=== PATIENT | female | born 1945 | race Caucasian/White ===

== ENCOUNTER → 2017-05-19 | Outpatient (CLI) | payer OTHER, BC ==
[~2017-05-19] MED LIST: AMX500 PO; BCTROWC TOP; ESTR0.5T5 PO; FEXO1TAB49 PO; FLNIN/ NAE; GLCSC750600 PO; IBUP-103 PO; LEVO25TA5 PO; LOSA1TAB38 PO; MELO15TA4 PO; MULT-506 PO; POLYSOL4 OP; SIMV20TA2 PO; SOLI5TAB2
--- NOTE | 2017-05-19 15:18 | MAMMOGRAPHY REPORT ---
BILATERAL DIGITAL SCREENING MAMMOGRAM WITH CAD: 05/19/2017 CLINICAL HISTORY: Routine screening. Patient reported right breast pain during this appointment. TECHNIQUE: Bilateral CC and MLO views were obtained. Current study was also evaluated with a Compute r Aided Detection (CAD) system. COMPARISON: Comparison is made to exams dated: 05/16/2016 mammogram, 05/15/2015 mammogram, 11/23/2014 ma mmogram, 05/19/2014 mammogram, 05/10/2014 mammogram, and 05/07/2013 mammogram - [facility]. BREAST COMPOSITION: There are scattered areas of fibroglandular density in both breasts. FINDINGS: There is an 11 mm focal asymmetry in the anterior subareolar right breast, for which addit ional spot compression tomosynthesis views and possibly ultrasound are recommended. An 11 mm asymmet ry is seen in the lateral anterior left breast on the CC view, also warranting additional spot compre ssion tomosynthesis views and possibly ultrasound. There are mild vascular calcifications in the breasts. A stable intramammary lymph node in the right upper outer quadrant. No other suspicious mass, architectural distortion or cluster of microcalcifi cations is seen. IMPRESSION: ACR BI-RADS CATEGORY 0: INCOMPLETE EVALUATION: NEED ADDITIONAL IMAGING EVALUATION The 11 mm focal asymmetry in the anterior subareolar right breast, and asymmetry in the lateral anter ior left breast need additional imaging evaluation. At the time of diagnostic workup, further workup can also be performed for the reported right breast pain, reported to our glass technologist d uring this appointment. The patient will be called to schedule an appointment. Approximately 10% of breast cancers are not detected with mammography. A negative mammographic report should not delay biopsy if a clinically suggestive mass is present. Aurora Torre M.D. ay/:05/19/2017 13:41:04 Statistical Methods Professor: Norma CORNELL(Eva)(Shari)([id number]), [facility] letter sent: Addl Imaging 0 BI-RADS Code: ACR BI-RADS Category 0: Incomplete Evaluation: Need Additional Imaging Evaluation
== END | disposition home or self-care (01) ==
LOC: C.MAMM 09:01
PROVIDERS: ATTEND Obstetrics & Gynecology
DX: Z12.31 Encounter for screening mammogram for malignant neoplasm of breast (principal); N64.89 Other specified disorders of breast; N64.4 Mastodynia

== ENCOUNTER → 2017-05-27 | Outpatient (CLI) | payer OTHER, BC ==
--- NOTE | 2017-05-27 15:39 | MAMMOGRAPHY REPORT ---
BILATERAL DIGITAL DIAGNOSTIC MAMMOGRAM TOMOSYNTHESIS AND TARGETED BILATERAL ULTRASOUND: 05/27/2017 CLINICAL HISTORY: 72-year-old woman called back from screening mammography for bilateral breast venancio s. During the screening mammogram she also reported right breast pain. She has a history of prior r ight breast cyst aspirations and pain. TECHNIQUE: Spot compression CC and MLO 2-D digital and tomosynthesis images of each breast were perf ormed. COMPARISON: Comparison is made to exams dated: 05/19/2017 mammogram, 05/16/2016 mammogram, 05/15/2015 ma mmogram, 11/23/2014 ultrasound, 11/23/2014 mammogram, and 09/09/2014 aspiration - [facility]. BREAST COMPOSITION: There are scattered areas of fibroglandular density in both breasts. FINDINGS: Spot compression views including tomosynthesis images of the right breast demonstrate persi stence of an 11 x 11 x 10 mm mass in the 1:00 anterior breast. No associated architectural distortio n or clustered microcalcification. This is increasingly prominent comparing to all available prior m ammograms. No other suspicious mass, focal area of architectural distortion or suspicious microcalci fications are seen in the visualized right breast. There is persistence of a lobulated and circumscribed 6 x 9 x 11 mm mass in the upper outer anterior left breast. No associated architectural distortion or cluster microcalcification. No other suspici ous mass or suspicious calcifications are seen in the visualized left breast. Further evaluation wit h ultrasound was performed. Targeted ultrasound was performed in the retroareolar and slightly medial right breast, and upper out er quadrant of the left breast. While scanning the right breast 1:00 axis, the patient reported pain in that area. In the 1:00 breast, periareolar region, there is a benign anechoic simple cyst measur ing 8.9 x 9.0 x 10.7 mm. This is the same location of a previous painful cyst which was aspirated in 2013, and correlates with the circumscribed mammographic mass. This most likely represents reaccumu lation of that cyst. In the 1:00 periareolar left breast, there is a microcyst cluster, measuring 7. 2 x 4.4 x 11.3 mm, which correlates well in size, shape and location as the mammographic mass. This is also benign. IMPRESSION: ACR BI-RADS CATEGORY 2: BENIGN, TARGETED ULTRASOUND ACR BI-RADS CATEGORY 2: BENIGN 1. An 11 mm circumscribed mass in the 1:00 anterior right breast seen mammographically correlates wi th a benign anechoic simple cyst on ultrasound. This is the same location as a previous previously a spirated cyst in 2013, and most likely represents reaccumulation. This also represents the area of t he patient's pain, which she pointed out during the ultrasound, and has also been present back to 201 4. 2. An 11 mm lobulated and circumscribed mass in the 1:00 anterior left breast correlates with a song gn microcyst cluster. 3. Overall, the bilateral findings represent benign fibrocystic changes and the area of the patient' s pain is related to a right breast cyst. Continued clinical monitoring is recommended. Also recomm end return to annual screening mammography schedule. Approximately 10% of breast cancers are not detected with mammography. A negative mammographic report should not delay biopsy if a clinically suggestive mass is present. Aurora Torre M.D. ay/:05/27/2017 14:30:41 Pilot Control Operator: Nakia CORNELL(Eva)(Shari), [facility] letter sent: Normal 1/2 BI-RADS Code: ACR BI-RADS Category 2: Benign Ultrasound BI-RADS: ACR BI-RADS Category 2: Benign
== END | disposition home or self-care (01) ==
LOC: C.MAMM 13:08
PROVIDERS: ATTEND Obstetrics & Gynecology
DX: N60.01 Solitary cyst of right breast (principal); N60.11 Diffuse cystic mastopathy of right breast; N60.12 Diffuse cystic mastopathy of left breast; N64.4 Mastodynia

== ENCOUNTER → 2017-07-24 | Outpatient (CLI) | payer OTHER, BC ==
[2017-07-24 15:56] LABS: BASO % 0.5 %; BASO ABS # 0.04 K/uL (0-0.2); COMPLETE YES; EOS % 1.8 %; HEMATOCRIT 36.4 % (37-47); IG% 0.4 %; LYMPH % 13.3 %; LYMPH ABS # 1.12 K/uL (1.2-3.4); MEAN CELL VOLUME 92.4 fL (80-100); MEAN CORPUSCULAR HGB CONC 33.5 g/dl (32-36); MEAN PLATELET VOLUME 9.5 fL (7.4-10.4); MONO % 12.7 %; NEUT % 71.3 %; PLATELET COUNT 345 K/uL (130-400); RED BLOOD COUNT 3.94 M/uL (4.2-5.4); WHITE BLOOD COUNT 8.43 K/uL (4.8-10.8)
[2017-07-24 15:57] LABS: ALT/SGPT 28 U/L (12-78); AST/SGOT 22 U/L (15-37)
[2017-07-24 16:00] LABS: ALKALINE PHOSPHATASE 69 U/L (45-117)
== END | disposition home or self-care (01) ==
LOC: C.LAB1850 14:55
PROVIDERS: ATTEND Internal Medicine Rheumatology
DX: M19.041 Primary osteoarthritis, right hand (principal); M19.042 Primary osteoarthritis, left hand; M79.605 Pain in left leg

== ENCOUNTER → 2018-01-21 | Outpatient (CLI) | payer OTHER, BC ==
[~2018-01-21] MED LIST changes: +MELO-84 PO; -MELO15TA4 PO
[2018-01-21 16:46] LABS: BASO % 0.9 %; BASO ABS # 0.07 K/uL (0-0.2); EOS % 2.5 %; HEMATOCRIT 39.8 % (37-47); HEMOGLOBIN 13.3 g/dL (12.0-16.0); IG# 0.02 K/uL (0.00-0.02); LYMPH % 18.5 %; LYMPH ABS # 1.49 K/uL (1.2-3.4); MEAN CELL VOLUME 92.3 fL (80-100); MEAN CORPUSCULAR HEMOGLOBIN 30.9 pg (25-34); MEAN CORPUSCULAR HGB CONC 33.4 g/dl (32-36); MEAN PLATELET VOLUME 9.8 fL (7.4-10.4); MONO % 9.8 %; MONO ABS # 0.79 K/uL (0.11-0.59); NEUT % 68.1 %; NEUT ABS # 5.49 K/uL (1.4-6.5); PLATELET COUNT 349 K/uL (130-400); RED CELL DISTRIBUTION WIDTH CV 13.4 % (11.5-14.5); RED CELL DISTRIBUTION WIDTH SD 45.4 fL (36.4-46.3); WHITE BLOOD COUNT 8.06 K/uL (4.8-10.8)
[2018-01-21 17:07] LABS: CREATININE 1.26 mg/dl (0.60-1.20)
[2018-01-21 17:11] LABS: ALBUMIN 3.7 gm/dl (3.4-5.0); ALKALINE PHOSPHATASE 70 U/L (45-117); ALT/SGPT 32 U/L (12-78); AST/SGOT 20 U/L (15-37); TOTAL PROTEIN 7.2 gm/dl (6.4-8.2)
== END | disposition home or self-care (01) ==
LOC: C.LAB1850 15:07
PROVIDERS: ATTEND Internal Medicine Rheumatology
DX: M19.041 Primary osteoarthritis, right hand (principal); M19.042 Primary osteoarthritis, left hand; M79.605 Pain in left leg

== ENCOUNTER 2021-05-28 07:39 | Observation (INO) ==
--- NOTE | 2021-05-18 16:02 | Anesthesiology Consultation ---
Date of Service May 18, 2021 Assessment & Plan (1) Encounter for pre-operative examination: Chart Review Chart Review: Acceptable Risk for Surgery (pending preop Covid testing results ) and Patient NOT seen in Pre Admission Testing Per nursing assessment 05/18/2021, patient denies any recent travel. No known Covid infection in the past 90 days. Patient is vaccinated for Covid. No known Covid positive contacts or Covid related symptoms. Preop Covid testing scheduled 05/24/[address]= will await results. Last seen by cardiology 12/08/2020 = seen for routine follow-up. Seen approximately 6 weeks ago as new patient for evaluation of dizzinessundergone PT which improved symptoms. As part of cardiac work-up did undergo an echocardiogram and 7-day ZIO monitor. ZIO monitor revealed several episodes of second-degree type I heart block with pause of 2.4 secondsepisodes were during presumed sleep and no symptoms reported. Echocardiogram did show mild aortic stenosis and ascending aorta enlargement. We will repeat echocardiogram in 1 year. No recurrent dizzinesshas asymptomatic second-degree Mobitz 1not currently on beta-adolfo therapy and would avoid all AV yunior blocking agents. F/u in one year History Surgery Operation Date: 05/28/21 07:00 Proposed Procedures p Right Breast Lumpectomy with Localization using Cheryl Director Validation Marker or Needle with Right [place] Lymph Node Biopsy - Anderson Helton MD, FACS Height/Weight Height: 5 ft 5 in Weight: 98.883 kg Allergies Allergy/AdvReac Type Severity Reaction Status Date / Time cephalexin Allergy Intermediate HIVES Verified 05/18/21 14:14 erythromycin base Allergy Mild HIVES Verified 05/18/21 14:14 olive oil Allergy Mild TINGLING Verified 05/18/21 14:14 IN LIPS Sulfa (Sulfonamide Allergy Unknown HIVES Verified 05/18/21 14:14 Antibiotics) Medications Home Medications Medication Instructions Recorded Confirmed Last Taken antiarthritic combination no.2 900 1,800 mg PO QAM 11/01/19 05/18/21 01/06/20 09:00 mg tablet cetirizine 10 mg disintegrating 10 mg PO QAM tab 11/01/19 05/18/21 01/06/20 09:00 tablet ibuprofen 400 mg tablet 400 mg PO Q6H PRN 11/01/19 05/18/21 12/31/19 ipratropium bromide 21 mcg (0.03 2 sprays INTNAS BID 11/01/19 05/18/21 01/07/20 06:00 %) nasal spray multivitamin 1 tab PO QAM 11/01/19 05/18/21 01/06/20 09:00 simvastatin 20 mg tablet 20 mg PO QPM 11/01/19 05/18/21 01/06/20 21:00 acetaminophen [Tylenol] 325 mg PO QID PRN 11/29/19 05/18/21 01/06/20 18:30 turmeric 400 mg PO QAM 11/29/19 05/18/21 12/28/19 clindamycin HCl 300 mg capsule 600 mg PO ONCE 1 Days #2 cap 10/17/20 05/18/21 Unknown betamethasone, augmented 0.05 % 1 applic TOPICAL BID PRN 04/18/21 05/18/21 Unknown topical cream cholecalciferol (vitamin D3) 50 50 mcg PO QAM 04/18/21 05/18/21 Unknown mcg (2,000 unit) capsule fluticasone propionate 50 2 spray INTRANASAL BID 04/18/21 05/18/21 Unknown mcg/actuation nasal spray,suspension hydrocortisone 2.5 % topical cream 1 applic TOPICAL TID PRN 04/18/21 05/18/21 Unknown levothyroxine 75 mcg capsule 75 mcg PO QAM 04/18/21 05/18/21 Unknown polyethylene glycol 1 %-polyvinyl 1 drp OPHTHALMIC (EYE) QAM 04/18/21 05/18/21 Unknown alcohol 1 % eye drops gabapentin 100 mg PO BID 05/18/21 05/18/21 Unknown losartan 100 mg PO QAM 05/18/21 05/18/21 Unknown meclizine 25 mg PO TID PRN 05/18/21 05/18/21 Unknown ondansetron 4 mg PO Q6H PRN 05/18/21 05/18/21 Unknown tramadol 50 mg PO BID PRN 05/18/21 05/18/21 Unknown Past Medical History Medical History (Updated 05/18/21 @ 15:59 by Kenia Juan PA-C) Borderline glaucoma Breast cancer, right Dx 03/2021 CKD (chronic kidney disease), stage III 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 DDD (degenerative disc disease) Hyperlipidemia Hypertension Hypertensive left ventricular hypertrophy, without heart failure Hypothyroidism Mild aortic stenosis Per 11/15/20 ECHO= ARLENE =1.2-1.4 cm; AV mean gradient = 7.3 mmHg; AV max velocity 1.927 m/s Follows with [facility] cardio Obesity Overactive bladder Prediabetes Sciatica Vertigo Past Family History Family History Sister Diabetes Breast cancer Mother Breast cancer Other No family history of adverse response to anesthesia Past Surgical History Surgical History History of breast biopsy History of cataract surgery History of colonoscopy History of hysterectomy History of reverse total replacement of right shoulder joint (~12/2019) Hx of abdominal surgery MESENTERIC CYST REMOVED Hx of colonoscopy S/P knee replacement RIGHT AND LEFT Social History Smoking Status: Never smoker Do You Dip or Chew Tobacco: No Hx Alcohol Use: No Hx Substance Use: No substance use type: does not use Lab Results Anesthesia Preop Results Results Anesthesia Widget: WBC 6.53 K/uL (4.8-10.8) 04/26/21 Hgb 13.5 g/dL (12.0-16.0) 04/26/21 Hct 41.5 % (37-47) 04/26/21 Plt 291 K/uL (130-400) 04/26/21 Na 131 mmol/L (136-145) L 04/26/21 K 4.1 mmol/L (3.5-5.1) 04/26/21 Cl 95 mmol/L (98-107) L 04/26/21 CO2 30 mmol/L (21-32) 04/26/21 BUN 13 mg/dl (7-18) 04/26/21 Creat 0.86 mg/dl (0.6-1.2) 04/26/21 Glucose Level 107 mg/dl (70-99) H 04/26/21 Lab Comments: Chronic hyponatremia since at least 2018 Testing Electrocardiogram Date: 04/26/21 Sinus rhythm with first-degree AV block at 81 bpm. Otherwise normal EKG per cardio. Echocardiogram Date: 11/15/20 EF: 59% LV Function: normal RWMA: + none Other Findings: + LVH (Mild/concentric) and + diastolic dysfunction (Grade 1) Normal LV chamber size with sigmoid appearing septum. Aortic valve has 3 leafletsmildly calcified. AV opening mildly reduced. Mild aortic valve stenosis is present. (ARLENE =1.2-1.4 cm; AV mean gradient = 7.3 mmHg; AV max velocity 1.927 m/s) Proximal ascending thoracic aorta is mildly enlarged. Aortic root is normal size. Other Testing Chest CT 05/16/2021 = stable bilateral pulmonary nodules. Noncalcific nodules are favored to represent noncalcified granulomata given the presence of calcified granulomata and granulomatous nodes. Consider follow up CT in six months to assess for 1 year stability. Stable ectasia of the ascending aorta4.1 cm. Stable hypodense nodule in the medial aspect of the right lobe and isthmus of the thyroid.
[~2021-05-28 07:39] MED LIST changes: +ACETAMINOPHEN 1000 MG/100 ML IV IV ONE; -AMX500 PO; -BCTROWC TOP; +CLINDAMYCIN 900 MG in DEXTROSE 5% 50 ML IV SCH; -ESTR0.5T5 PO; -FEXO1TAB49 PO; -FLNIN/ NAE; -GLCSC750600 PO; -IBUP-103 PO; -LEVO25TA5 PO; -LOSA1TAB38 PO; +LR 15ML/HR IV SCH; -MELO-84 PO; -MULT-506 PO; -POLYSOL4 OP; -SIMV20TA2 PO; -SOLI5TAB2
[2021-05-28] MEDS ORDERED: MIDAZOLAM HCL 1 MG/ML 2ML VIAL ONE (08:20)
[2021-05-28] MEDS ORDERED: fentaNYL citrate 100 MCG/2 ML VIAL ONE ×2 (08:21)
[2021-05-28] MEDS ORDERED: ONDANSETRON INJ 2 MG/ML 2 ML VIAL ONE (08:41)
[2021-05-28] MEDS ORDERED: LIDOCAINE 2% 2 ML VIAL/AMP(20MG/ML) INFIL ONE (08:41)
[2021-05-28] MEDS ORDERED: PROPOFOL IV EMULSION 10 MG/ML 20 ML VIAL IV ONE (08:41)
[2021-05-28] MEDS ORDERED: DEXAMETHASONE SOD INJ 4 MG/ML VIAL ONE (08:41)
[2021-05-28] MEDS ORDERED: ISOSULFAN BLUE 10 MG/ML VIAL 5 ML ONE (09:00)
[2021-05-28] MEDS ORDERED: BUPIVACAINE 0.5 % 5 MG/1 ML MPF 30ML VIAL ONE (09:00)
--- NOTE | 2021-05-28 09:16 | Nuclear Medicine Report ---
LYMPHOSCINTIGRAPHY CLINICAL HISTORY: Right breast cancer. PROCEDURE: Using standard sterile technique, 4 intradermal and one deep injection of 0.49 mCi of Lymp hoseek was placed in the right breast. The patient tolerated the procedure well. There were no immedi ate complications. The patient was subsequently transported to the surgical suite. No imaging was obt ained at the referring physician's request. IMPRESSION: Injection of 0.49 mCi of Lymphoseek in the right breast. ACT 112: Negative or not required by law. Electronically signed by: Bishop Zhang M.D. 05/28/2021 9:14 AM
[2021-05-28] MEDS ORDERED: METHYLENE BLUE 0.5% 10 ML VIAL ONE (09:32)
[2021-05-28] MEDS ORDERED: SCOPOLAMINE 1 MG TDSY TD ONE (09:40)
[2021-05-28] MEDS ORDERED: LABETALOL HCL IV 5 MG/ML 20ML IV PRN (09:56)
[2021-05-28] MEDS ORDERED: ATROPINE SULFATE 0.1 MG/ML 10ML SYR IV PRN (09:56)
[2021-05-28] MEDS ORDERED: ONDANSETRON INJ 2 MG/ML 2 ML VIAL IV PRN ×2 (09:56→12:50)
[2021-05-28] MEDS ORDERED: PHENYLEPHRINE 100MCG/ML 5ML SYR ONE (10:19)
[2021-05-28] MEDS ORDERED: PHENYLEPHRINE HCL 10 MG/ML VIAL ONE (10:40)
--- NOTE | 2021-05-28 11:15 | Post Operative Brief Note ---
PG Immediate Post Op with CF Date of Surgery May 28, 2021 Pre & Post Diagnosis Operation Date: 05/28/21 09:45 Pre-Op Diagnosis: Right Breast Cancer Post-Op Diagnosis: Right Breast Cancer I identified the patient and participated in the time-out.: Yes Procedure Operation Date: 05/28/21 09:45 Actual Procedures p Right Breast Lumpectomy with Localization using Cheryl Geology Technician Marker with Right [place] Lymph Node Biopsy(Right) - Anderson Helton MD, FACS Surgeon Anderson Helton MD, FACS Watershed Program Manager nurses Estimated Blood Loss 5 Findings Consistent with Post-Op Diagnosis Specimens Specimen Description: Frozen Section #1--[place] Lymph Node #1--sent to pathology at 1037 A. Additional Right Axillary Lymph Node B. Right Breast Tissue--(Long silk=lateral, short silk=medial, plain suture=superior, methylene blue=deep/posterior)--Fresh C. Addtional Superior Tissue Right Breast--(long silk=lateral, short silk=me dial, methylene blue=new margin) D. Additional Inferior Tissue Right Breast--(long silk=lateral, short silk=medial, methylene blue=new margin)
[2021-05-28] MEDS ORDERED: ACETAMINOPHEN 1,000 MG/100 ML VIAL IV ONE (11:16)
[2021-05-28] MEDS: fentaNYL citrate 100 MCG/2 ML VIAL IV PRN ×4 (11:33→11:48)
--- NOTE | 2021-05-28 12:04 | Anesthesiology Progress Note ---
Date of Service May 28, 2021 Anesthesia Post Procedure Vital Signs Vital Signs: Temp Pulse Pulse Resp BP Pulse Ox 05/28/21 12:00 36.5 C 81 13 128/83 96 05/28/21 11:50 82 13 137/86 91 05/28/21 11:40 61 22 137/84 97 05/28/21 11:30 73 19 159/96 H 99 05/28/21 11:20 36.7 C 85 19 160/95 H 100 05/28/21 09:12 36.9 C 90 20 167/107 H 94 Pain Intensity Right Breast: Pain Intensity: 6 Transfer of Care Handoff Completed per policy Notes Mental Status: alert / awake / arousable Patient Amnestic to Procedure: Yes Nausea / Vomiting: adequately controlled Pain: adequately controlled Airway Patency, RR, SpO2: stable & adequate BP & HR: stable & adequate Hydration State: stable & adequate Anesthetic Complications: no major complications apparent
[2021-05-28] MEDS ORDERED: SODIUM CHLORIDE 0.9% 500 ML IV SCH (12:50)
[2021-05-28] MEDS ORDERED: PROMETHAZINE HCL 12.5 MG in SODIUM CHLORIDE 0.9% 50 ML IV PRN (12:50)
[2021-05-28] MEDS ORDERED: IBUPROFEN 600 MG TAB PO PRN (12:50)
[2021-05-28] MEDS ORDERED: MoRPHine SULFATE 2 MG/ML CARP IV PRN (12:50)
[2021-05-28] MEDS: traMADol HCL 50 MG TABLET PO PRN (13:50)
--- NOTE | 2021-05-28 15:00 | Mammography Report ---
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 She presents at time of lumpectomy and preoperative localization with Cheryl bull riveter wa s performed 05/17/2021. COMPARISON: Comparison is made to exams dated: 05/09/2021 breast MRI, 05/17/2021 localization, stereotactic biopsy, 03/29/2021 mammogram, 03/16/2021 ultrasound, and 03/16/2021 mammogram - [facility]. FINDINGS: A specimen radiograph was obtained of the right breast lumpectomy specimen. The specimen d emonstrates the Cheryl bull riveter reflector, hourglass-shaped biopsy marker, vascular calcification, density near the metallic markers and faint amorphous and punctate calcifications within the specimen, tez tible with successful preoperative localization and subsequent surgical excision. Final surgical pat hology is pending. IMPRESSION: SPECIMEN Right breast lumpectomy specimen radiograph, as above. Aurora Torre M.D. ay/:05/28/2021 13:40:12 Solvent Mixer: OR Technologist, [facility]
[2021-05-28] MEDS: LOSARTAN POTASSIUM 50 MG TAB PO SCH (16:40)
[2021-05-28] MEDS: ACETAMINOPHEN 325 MG TAB PO PRN ×2 (16:42→20:48)
--- NOTE | 2021-05-28 17:08 | Operative Report (OR) ---
DATE OF PROCEDURE: 05/28/2021 NAME OF OPERATION: Right lumpectomy with sentinel lymph node biopsy. PREOPERATIVE DIAGNOSIS: Right breast cancer. POSTOPERATIVE DIAGNOSIS: Right breast cancer. SURGEON: Anderson Helton MD ANESTHESIA: General. DESCRIPTION OF PROCEDURE: The patient was brought in the operating room and placed on the operating table in supine position. Her right arm was extended down on an arm board. Her right axilla and jacob ast prepped and draped in the usual fashion. She had a STEF marker in place and underwent injection for sentinel lymph node biopsy. A 0.5% plain Marcaine was used to anesthetize axilla and breast. Inc ision was made in the axilla, carried dissection down very deep identifying the sentinel lymph node. This was sent for frozen section and found to be negative. It appeared I had 3 additional lymph nod es, which were sent permanent. At this point, the lumpectomy was performed. An elliptical incision made in the right lateral breast using the STEF probe. We excised the tissue. It was right breast t issue. Skin anterior, long silk lateral, short silk medial, plain suture superior, methylene blue de ep/posterior. It appeared on the Faxitron, which was sent to Dr. Torre that I was somewhat close to the superior area. Additional superior and inferior tissue was taken and marked with long silk la teral, short silk medial, methylene blue new margin. Dr. Torre felt we had the tissue, we needed. Clips were placed to level of the suspicious, deep tissue in both sites was closed using 2-0 plain s uture. Right axilla closed using 4-0 nylon for the skin. Right breast and skin closed using subcuti cular 4-0 Monocryl with Steri-Strips. Dressings applied and the patient transferred to recovery room in stable condition. Job ID: [id number]
[2021-05-28] MEDS: CLINDAMYCIN 600 MG in DEXTROSE 5% 50 ML IV SCH (18:28)
[2021-05-28] MEDS ORDERED: hydrALAZINE HCL 20 MG/ML VIAL IV PRN (20:42)
[2021-05-28] MEDS: GABAPENTIN 300 MG CAP PO SCH (20:47)
[2021-05-28] MEDS ORDERED: SIMVASTATIN 20 MG TAB PO SCH (21:00)
--- NOTE | 2021-05-28 21:52 | Consultation Report ---
DATE OF CONSULTATION: 05/28/2021. CHIEF COMPLAINT: Status post right lumpectomy with sentinel lymph node biopsy, tolerated the procedure okay. Pain is under control. Ambulated in the hallway. Ate her dinner okay. Denies any nausea. No headache, no blurred visions, no earache, no runny nose, no sore throat, no cough, no fevers, no chest pain, no shortness of breath, no abdominal pain. Moved her bowels in the morning. When she came in, she did not take her losartan, so blood pressure was going high in the postop, but she got a blood pressure medicine and blood pressure is coming down. Currently resting comfortably. ALLERGIES: CEPHALEXIN, SULFA ANTIBIOTICS, ERYTHROMYCIN BASE, OLIVE OIL PAST MEDICAL HISTORY: As mentioned above. PAST SURGICAL HISTORY: Bilateral knee replacement, colonoscopy, reconstruction of right shoulder joint, removal of mesenteric lesion. MEDICATIONS: The patient is on Tylenol 325 mg p.o. q.i.d. p.r.n., antiarthritic combination 800 mg p.o. a.m., betamethasone augmented 0.05% topical cream b.i.d. p.r.n., cetirizine 10 mg p.o. daily a.m., vitamin D 2000 units p.o. a.m., clindamycin 600 mg p.o. once, Flonase 2 sprays intranasally b.i.d., gabapentin 300 mg p.o. b.i.d., hydrocortisone 2.5% topical cream t.i.d. p.r.n., ibuprofen 400 mg p.o. q.6 hours p.r.n., ipratropium bromide 0.03% nasal spray 2 sprays intranasally b.i.d., levothyroxine 75 mcg p.o. daily, losartan 100 mg p.o. a.m., meclizine 25 mg p.o. t.i.d. p.r.n., multivitamin 1 tablet p.o. a.m., Zofran 4 mg p.o. q.6 hours p.r.n., polyethylene glycol 1% ophthalmic drop a.m., simvastatin 20 mg p.o. q.a.m., tramadol 50 mg p.o. b.i.d. p.r.n., turmeric 400 mg p.o. a.m. FAMILY HISTORY: Significant for daughter has allergies; father has tachybrady syndrome; mother has bradycardia; father has thyroid disorder; mother has thyroid disorder. SOCIAL HISTORY: . No smoking, no alcohol, no drug use. REVIEW OF SYSTEMS: As per HPI. Rest of the review of systems is negative. PHYSICAL EXAMINATION: GENERAL: The patient is obese, not in acute distress. VITAL SIGNS: Temperature 37.1, pulse 106, respiratory rate 18, blood pressure 150/79, oxygen 91% on room air. HEENT: Head is atraumatic. NECK: No neck masses seen. CARDIOVASCULAR: S1 and S2 heard. Regular rate and rhythm. No murmur, no gallop. RESPIRATORY SYSTEM: Normal AP diameter. No accessory muscle use. No wheezes, no crackles. ABDOMEN: Soft, bowel sounds present, nontender, no distention. CENTRAL NERVOUS SYSTEM: Nonfocal. BREASTS: Status post right breast lumpectomy with sentinel lymph node biopsy. Dressing is dry. EXTREMITIES: No edema, no erythema. LABORATORIES: Unremarkable. ASSESSMENT AND PLAN: 1. This is a 76-year-old female admitted for right breast lumpectomy with sentinel lymph node biopsy. She tolerated the procedure okay. Recent Pathology showed ductal carcinoma in situ with one sentinel lymph node biopsy had invasive ductal carcinoma grade II. Follow up with surgery. 2. History of hypertension: Continue losartan. We will monitor the blood pressure. hydralazine p.r.n. 3. History of vertigo: Continue her meclizine p.r.n. 4. Hypothyroidism: Continue Synthroid. 5. Chronic kidney disease stage III: We will follow the laboratories. 6. Prediabetic: Follow hemoglobin A1c. Follow blood sugars. Diabetic diet. 7. Hyperlipidemia: On statin. 8. Deep venous thrombosis prophylaxis and disposition as per general surgery. Job ID: [id number] [facility]
[2021-05-29] MEDS: CLINDAMYCIN 600 MG in DEXTROSE 5% 50 ML IV SCH ×2 (02:40→10:20)
[2021-05-29] MEDS ORDERED: LEVOTHYROXINE SODIUM 75 MCG TABLET PO SCH (06:30)
[2021-05-29 07:50] LABS: Estimated Average Glucose 114 mg/dl; Hemoglobin A1C 5.6 % (4.5-5.6)
[2021-05-29] MEDS: traMADol HCL 50 MG TABLET PO PRN (07:56)
[2021-05-29] MEDS: LOSARTAN POTASSIUM 50 MG TAB PO SCH (08:02)
[2021-05-29] MEDS: GABAPENTIN 300 MG CAP PO SCH (08:02)
--- NOTE | 2021-05-29 11:15 | Discharge Summary (DS) ---
DATE OF DISCHARGE: 05/29/2021. PRINCIPAL DIAGNOSIS: Right breast cancer. PROCEDURES: The patient underwent right breast lumpectomy with sentinel lymph node biopsy. HISTORY OF PRESENT ILLNESS: The patient is a 76-year-old female with biopsy proven right breast canc er for definitive surgery. HOSPITAL COURSE: The patient was brought into the hospital on 05/28/2021 where she underwent right b reast lumpectomy with sentinel lymph node biopsy, which she has done quite well with, done well overn ight. [place] stable for discharge home today to be followed in the surgical clinic within 1-2 weeks. She will also follow up with oncology and radiation oncology. Job ID: [id number]
== END 2021-05-29 12:51 | disposition home health service (06) ==
LOC: 3N 07:39 → ASU 07:39 → EDSTATUS 09:45

== ENCOUNTER 2023-12-21 16:06 | Inpatient (IN) ==
--- OUTSIDE RECORDS SUMMARY | 2023-12-21 16:10 | External Medical Summary | Summary of Care ---
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* Allergies Active Allergy Reactions Criticality Noted Date Comments Adhesive Tape Rash Low 12/12/2021 Erythromycin 05/29/2001 hives Cephalexin Rash 08/19/2017 Diffuse macular papular rash Lyles Oil Edema face/lips/tongue High 07/20/2015 Sulfa Antibiotics 05/29/2001 hives Wound Dressing Adhesive 07/29/2021 documented as of this encounter (statuses as of 11/19/2023) Medications Medication Sig Dispensed Refills Start Date End Date Status CENTRUM SILVER PO TABS 1 TABLET DAILY 0 11/15/2008 Active GLUCOSAMINE CHONDR COMPLEX 500-400 MG PO CAPS 1 daily 0 Active IBUPROFEN 200 MG PO CAPS Take by mouth every 6 hours as needed . 0 Active hydrocortisone 2.5 % creamIndications:Hiv es Apply topically to affected area 3 times a day. To affected area. 30 g 1 07/20/2015 Active Polyethyl Glycol-Propyl Glycol 0.4-0.3 % Ophthalmic Solution Instill into eye as needed for Dry eyes. 0 Active AUG BETAMETHASONE DIPROPIONATE (DIPROLENE AF) 0.05 % cream Apply topically to affected area 2 times a day. To affected area. 15 g 3 09/30/2019 Active Acetaminophen ER 650 MG Oral Tablet Extended Release Take 1 Tablet by mouth every 8 hours as needed. 0 Active Clindamycin HCl 150 MG Oral Capsule (Cleocin) 0 12/01/2020 Active Vitamin D 50 MCG (2000 UT) Oral Capsule Take 2,000 Units by mouth daily. 0 Active Tamoxifen Citrate 20 MG Oral Tablet TAKE 1 TABLET BY MOUTH DAILY. TAKE WHOLE WITH WATER 0 06/08/2021 Active Vitamin E 200 UNIT Oral Tablet Take by mouth. 0 Active Vitamin B6 100 MG Oral Tablet Take by mouth. 0 Active Ipratropium [place] 0.03 % Nasal Solution (Atrovent) Administer 2 Sprays into nostril in the morning and 2 Sprays at noon and 2 Sprays before bedtime. 2 sprays each nostril twice daily, may use mid day dose if needed. 90 mL 4 12/19/2022 Active Ondansetron HCl 4 MG Oral TabletIndications:Ve rtigo Take 1 Tablet by mouth every 6 hours as needed for Nausea. 30 Tablet 0 01/17/2023 Active Meclizine HCl 25 MG Oral Tablet (Antivert)Indication s:Vertigo Take 1 Tablet by mouth 3 times a day as needed for Dizziness. 30 Tablet 1 01/17/2023 Active Fluticasone Propionate 50 MCG/ACT Nasal Suspension (Flonase) SPRAY 2 SPRAYS INTO EACH NOSTRIL EVERY DAY 48 mL 3 03/17/2023 Active Losartan Potassium 100 MG Oral Tablet (Cozaar)Indications: HTN, goal below 130/80 TAKE 1 TABLET BY MOUTH EVERY DAY 90 Tablet 3 04/17/2023 Active Triamcinolone Acetonide 0.1 % External Ointment (Aristocort) Apply topically to affected area 2 times a day. To affected area. 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 09/25/2020 Overview: Per CKD protocol Prediabetes 05/29/2020 Overview: Per Prediabetes protocol Recurrent urticaria 08/08/2017 Overview: since 2004 History of recurrent UTIs 08/08/2017 Essential hypertension with goal blood pressure less than 140/90 11/21/2016 Aortic valve sclerosis 11/21/2016 Non-rheumatic mitral regurgitation 11/21/2016 Overview: mild Hypertensive left ventricula r hypertrophy, without heart failure 11/21/2016 Dyslipidemia, goal LDL below 130 04/30/2011 Knee joint replacement status 04/26/2011 Overview: bilateral knee replacements Cataract 01/22/2010 Overview: Sees [facility] Rotator cuff syndrome 12/02/2008 Dysfunction of eustachian tube 12/02/2008 Allergic rhinitis 12/02/2008 Uterine leiomyoma documented as of this encounter (statuses as of 11/19/2023) Resolved Problems Problem Noted Date Diagnosed Date Resolved Date Hypertensive heart/kidney di sease without HF and with CKD stage III 05/05/2019 09/28/2020 Overview: Per CKD protocol Encounter for examination fo r normal comparison and control in clinical research program 01/18/2019 06/19/2020 Overview: DO NOT DELETE [facility] DETECT Study: Project # [id number], Criminal Attorney: Mehrdad Hawkins, PhD. SUMMARY: Goal: Establish test characteristics (sensitivity, specificity, PPV, NPV) of a circulating tumor DNA (ctDNA)-based test for cancer. Hypothesis: Circulating tumor DNA (ctDNA) and elevated protein biomarkers (together, the marker panel) can be detected in asymptomatic individuals with early cancer. Specific Aim 1: Determine the prevalence of a positive marker panel test in a prospective clinical cohort of 10,000 asymptomatic women ages 65 to 75 years. Specific Aim 2: Determine the sensitivity, specificity, positive predictive value (PPV) and negative predictive value (NPV) of a marker panel test to identify histologically proven cancers that develop within 5-years of the marker panel evaluation. CONTACTS: During normal business hours, contact study staff at ; after hours Criminal Attorney via the [facility] multi spindle operator . Please contact study team before resolving/deleting from patients problem list. Study phone number: [phone]. Diagnosis changed due to Research Module. Go to Snapshot for study details. Encounter for examination fo r normal comparison and control in clinical research program 01/18/2019 07/18/2022 Overview: DO NOT DELETE - [facility] DETECT Study: Project # [id number], Criminal Attorney: Scotty Addison, MS, MPH. SUMMARY: Goal: Establish test characteristics (sensitivity, specificity, PPV, NPV) of a circulating tumor DNA (ctDNA)-based test for cancer. - Hypothesis: Circulating tumor DNA (ctDNA) and elevated protein biomarkers (together, the marker panel) can be detected in asymptomatic individuals with early cancer. - Specific Aim 1: Determine the prevalence of a positive marker panel test in a prospective clinical cohort of 10,000 asymptomatic women ages 65 to 75 years. - Specific Aim 2: Determine the sensitivity, specificity, positive predictive value (PPV) and negative predictive value (NPV) of a marker panel test to identify histologically proven cancers that develop within 5-years of the marker panel evaluation. - CONTACTS: During normal business hours, contact study staff at ; after hours Criminal Attorney via the [facility] multi spindle operator . - Please contact study team before resolving/deleting from patients problem list. Study phone number: [phone]. Diagnosis changed due to Research Module. Go to Snapshot for study details. 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 documented as of this encounter (statuses as of 11/19/2023) Immunizations Name Administration Dates Next Due COVID-19 mRNA, LNP-s, No Pre serve, 2-Dose Series (Pfizer) 10/02/2021,01/31/2021,01/03/2021 COVID-19, MRNA-LNP, 23-24, P F, 50 MCG/0.5 mL, 12 YRS AND ABOVE, IM (MODERNA-Spikevax) 09/02/2023 COVID-19, mRNA, LNP-s, PF, B ooster, 100mcg/0.5mg (Moderna) 05/30/2022 Covid-19, Mrna, Lnp-s, Pf, B ivalent, 30 Mcg, IM, 12 yrs and above (Pfizer) 08/27/2022 H1N1 2009 Influenza, IM 12/20/2009 Pneumococcal Conjugate Vacc, 13 Valent (Prevnar) 11/01/2016 Pneumococcal Polysaccharide PPV23 (Pneumovax) 08/21/2015,08/19/2009 RSV Vac., Recomb, Adjuvant, PF,0.5 Ml (Arexvy) 10/15/2023 Season Influenza, Quad, PF, Adjuvanted, 65+ Yrs, IM (FLUAD) 08/02/2020 Seasonal Influenza, PF, 6 M & above, IM , (FluLaval or Fluzone) 08/21/2018 Seasonal Influenza, Quadriva lent Hd (Fluzone Hd) 09/01/2023,08/20/2022,09/01/2021 Seasonal Influenza, Quadriva lent, No Preserve, IM 08/05/2017,09/05/2016 Seasonal Influenza, Split, I IV3, With Preserve, Inj 08/21/2015,08/25/2014,08/03/2013,08/18,08/19/2009,11/15/2008,09/28/20 07,09/27/2006 Seasonal Influenza, Trivalen t, Adjuvanted, 65+ yrs 09/16/2019 TDAP (age 10 and older)(Boostrix) 03/22/2016 Varicella Zoster Vaccine (Adult) 04/20/2013 Zoster Vaccine Recombinant (Shingrix) ,05/30/2020,12/03/2019,11/1702/02/2020 documented as of this encounter Social History Tobacco Use Types Packs/Day Years Used Date Smoking Tobacco: Never Smokeless Tobacco: Never Alcohol Use Standard Drinks/Week Comments No 0 (1 standard drink = 0.6 oz pur e alcohol) PHQ-2 Answer Date Recorded PHQ Adult Total Score 0 10/14/2022 Hunger Vital Sign Answer Date Recorded Worried About Running Out of Food in the Last Ye ar Never true 11/30/2019 Ran Out of Food in the Last Year Never true 11/30/2019 Sex and Gender Information Value Date Recorded Sex Assigned at Female 11/30/2019 1:09 PM EST Gender Identity Female 11/30/2019 1:09 PM EST Sexual Orientation Straight 11/30/2019 1: 09 PM EST Job Start Date Occupation Industry Not on file Not on file Not on file documented as of this encounter Plan of Treatment Upcoming Encounters Date Type Department Care Team (Late st Contact Info) Description 11/27/2023 4:20 PM EST Office Visit Family [facility] [address] [place] [address] Dov Kohler DO [address] [place] [address] 12/18/2023 8:40 AM EST Telemedicine Endocrinology, [address] [place] [address] Princess Monterroso MD [address] [facility] [place], [place] [address] 01/20/2024 3:30 PM EST Office Visit Cardiology, [facility] [address] [facility] [place], [place] [address] Saba Zimmerman CRNP [address] [facility] [place] [address] 03/29/2024 4:00 PM EDT Office Visit Allergy/Immunology [facility] [address] [facility] [place] [address] Nas Porter MD [address] [place] [address] Scheduled Orders Name Type Priority Associated Diagnoses Orde r Schedule TSH WITH FREE T4 IF INDICATED Lab Routine 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 Expected: 11/19/2023 (Approximate), Expires: 11/19/2024 COMPREHENSIVE METABOLIC PANEL Lab Routine 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 Expected: 11/19/2023 (Approximate), Expires: 11/19/2024 Scheduled Procedures Name Priority Associated Diagnoses Date/Ti me COLONOSCOPY FLEXIBLE PROXIMA L DIAGNOSTIC Recall Special screening for malignant neoplasms, colon Health Maintenance Due Date Last Done Comments Depression Screening 10/14/2023 10/14/2022 TSH 04/17/2024 04/17/2023, 01/2022, 07/05/2022, Additional history exists GFR 04/28/2024 10/28/2023, 11/2022, 08/19/2022, Additional history exists Albumin/Creatinine Ratio 10/28/20242 023, 04/17/2023, 11/15/2021, Additional history exists CKD HGB USE SMARTSET 76361 10/28/202410/28, 10/28/2023, 04/17/2023, Additional history exists CKD PHOS USE SMARTSET 81399 10/28/202410/17, 04/17/2023, 08/19/2022, Additional history exists HbA1c 10/28/2024 10/28/2023, 06/0 11/2022, 08/19/2022, Additional history exists DTaP,Tdap,and Td Vaccines (2 - Td or Tdap) 03/22/2026 03/22/2016 DXA Scan 12/16/2029 12/16/2022, 11/19, 12/11/2020, Additional history exists Pneumococcal Vaccine: 65+ Years Completed 11/01/2016, 08/21/2015, 08/19/2009 Zoster Vaccines Completed 05/30/2020, 05/17, 12/03/2019, Additional history exists Influenza Vaccine (FLU shot) Completed 09/01/2023, 08/20/2022, 09/01/2021, Additional history exists COVID-19 Vaccine Completed 09/02/2023, 09/2022, 05/30/2022, Additional history exists GARDASIL-HPV IMMUNIZATION SERIES Aged Out No longer eligible based on patient's age to complete this topic Hepatitis B Aged Out No longer eligi ble based on patient's age to complete this topic Hepatitis C Screening Discontinued MENINGOCOCCAL (MENACTRA/MENVEO) Aged Out No longer eligible based on patient's age to complete this topic documented as of this encounter Medical Devices Not on filedocumented as of this encounter Visit Diagnoses Diagnosis 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
--- OUTSIDE RECORDS SUMMARY | 2023-12-21 16:10 | External Medical Summary | Summary of Care ---
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 SUMMARY: Goal: Establish test [...] contact study staff at ; after hours Fur Blender via the [facility] [place] hospital drosophere operator . Please contact study team before resolving/deleting from patients problem list. Study phone number: [phone]. Diagnosis changed due to Research Module. Go to Snapshot for study details. Encounter for examination fo r normal comparison and control in clinical research program 01/18/2019 07/18/2022 Overview: DO NOT DELETE - [employer] DETECT Study: Project # [id number], Fur Blender: Scotty Addison, MS, MPH. SUMMARY: Goal: Establish [...] contact study staff at ; after hours Fur Blender via the [facility] [place] hospital drosophere operator . - Please contact study team before resolving/deleting from patients problem list. Study phone number: [phone]. Diagnosis changed due to Research Module. Go to Snapshot for study details. 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 documented as of this encounter (statuses as of 12/18/2023) Immunizations Name Administration Dates Next Due COVID-19 [...] Date Recorded PHQ Adult Total Score 0 11/27/2023 Hunger Vital Sign Answer Date Recorded Worried [...] on file documented as of this encounter Patient Instructions * Patient Instructions* Princess Monterroso MD - 12/18/2023 8:38 AM EST Calcium and Vitamin D Guidelines [facility] Calcium: 1200 mg recommended for most adults each day Preferably from diet, or calcium supplements if you are not getting enough in your diet How much calcium am I getting in my diet each day? Calculate below: Question Answer Calculate Total On average, how many 8 oz glasses of low-fat or 1% milk per day? Answer x 290 On average, how many servings (1 cup, cooked) of spinach per day? Answer x 291 On average, how many servings (1 oz) of cheddar cheese per day? Answer x 204 On average, how many servings (1 cup) of low-fat yogurt per day? Answer x 415 On average, how many servings (1/2 cup) of ice cream per day? Answer x 85 On average, how many servings of calcium-fortified juices (orange juice, 1 cup) per day? Answer x 300 On average, how many servings (1/2 cup) of almonds per day? Answer x 280 Sources of Calcium Food Calcium, milligrams Milk (skim, 2% or whole), 8 oz 300 Yogurt (6 oz) 250 Culberson Juice (with calcium), 8 oz 300 Tofu with calcium (1/2 cup) 435 Cheese (1 oz) 195-335 (hard cheese = higher calcium) Cottage cheese (1/2 cup) 130 Ice cream or frozen yogurt (1/2 cup) 100 Soy milk (1 cup) 100 Beans (1/2 cup cooked) 60-80 Dark, leafy green vegatables (1/2 cup cooked) 50-135 Almonds (24 whole) 70 Culberson (1 medium) 60 Citracal may be best if you are taking a stomach acid adolfo like Zantac, Prevacid or Nexium. Chewable calcium carbonate may be best if you have trouble swallowing pills. Vitamin D: General recommendations for adults is 800-1000 IU daily. Goal for blood level of 25 hydroxy-vitamin D is 35-100. Too much Vitamin D can cause a high blood calcium level and can be dangerous documented in this encounter Progress Notes * Princess Monterroso MD - 12/18/2023 8:40 AM EST Patient location: HOME. I was in a hospital or clinic location. After connecting through [employer],patient was verified with two unique identifiers. 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 Methods to assure confidentiality were taken. Patient acknowledged consent and understanding of pr ivacy and security of the Telemedicine visit. The patient agreed to participate. 78-year-old female seen for follow-up of: Hypothyroidism Thyroid nodule-diagnosed in October 2020 Primary hyperparathyroidism, status post parathyroidectomy Osteopenia with high FRAX score Vitamin-D deficiency Hypothyroidism-taking levothyroxine 75 mcg 5 days per week, 2 tablets 2 days per week Takes it appropriately compliant, denies any complaints Thyroid nodule Found incidentally on CT scan of neck done for evaluation of dizziness in 10/2020. [place].S. head and neck in October 2020 showed 2.7 x 1.9 x 2.3 cm nodule in right lobe and isthmus junction. This nodule was biopsied in January 03, 2021, came back benign. This nodule has remained stable from ultrasound done in December 2021 and April 2023. No history of head/neck irradiation No family history of thyroid cancer Primary hyperparathyroidism-hypercalcemia, osteopenia with high FRAX score at hip 3.5:Status post parathyroidectomy in May 2022, calcium normalized postop. DEXA scan in November 2022-showed osteopenia with FRAX score hip 3.5%, major osteoporotic fracture 13% No falls or fractures Vitamin-D supplementation: 2000 IU daily Drinks 1 glass of chocolate milk daily, tries to get dietary calcium during the day She is recovering from COVID-19 infection. LABS CALCIUM - [facility] Date/Time Value Ref Range Status 10/28/2023 08:42 AM 9.4 8.4 - 10.2 mg/dL Final 04/17/2023 09:18 AM 9.4 8.4 - 10.2 mg/dL Final 08/19/2022 09:21 AM 9.2 8.4 - 10.2 mg/dL Final 11/01/2020 10:55 AM 10.3 (H) 8.4 - 10.2 mg/dL Final 10/20/2020 12:34 PM 10.7 (H) 8.4 - 10.2 mg/dL Final 05/24/2020 07:12 AM 10.2 8.4 - 10.2 mg/dL Final CALCIUM, 24 HOUR URINE - [facility] Date/Time Value Ref Range Status 09/07/2021 12:01 PM 0.31 (H) 0.05 - 0.30 g/24 hours Final 03/23/2021 11:02 AM 0.24 0.05 - 0.30 g/24 hours Final CALCIUM, 24 UR - [facility] Date/Time Value Ref Range Status 09/07/2021 12:01 PM 7.1 mg/dL Final 03/23/2021 11:02 AM 5.5 mg/dL Final CALCIUM, IONIZED - [facility] Date/Time Value Ref Range Status 11/01/2020 10:55 AM 1.27 1.13 - 1.32 mmol/L Final Comment: THIS TEST WAS DEVELOPED AND ITS PERFORMANCE CHARACTERISTICS DETERMINED BY [employer]. IT HAS NOT BEEN CLEARED OR APPROVED BY THE [employer]. PTH - [facility] Date/Time Value Ref Range Status 06/04/2022 10:35 AM 35 15 - 65 pg/mL Final 05/23/2022 10:58 AM 32 15 - 65 pg/mL Final 03/18/2022 10:06 AM 56 15 - 65 pg/mL Final 11/01/2020 10:55 AM 47 15 - 65 pg/mL Final PTH, RAPID - [facility] Date/Time Value Ref Range Status 05/23/2022 09:37 AM 96 (H) 15 - 65 pg/mL Final Comment: Gave result to Dr. Aldana at 0950. 05/23/2022 09:05 AM 130 (H) 15 - 65 pg/mL Final Comment: Gave result to OR 18 at 0917. 05/23/2022 08:53 AM 125 (H) 15 - 65 pg/mL Final Comment: Gave result to Dr. Aldana at 0904. PTH-RELATED PROTEIN (PTH-RP) Date/Time Value Ref Range Status 01/13/2021 11:17 AM SEE BELOW (A) Final Comment: TESTS RESULTS--------UNITS--REF. RANGE--- PTH-RP 11 L pg/mL This is a C-terminal PTH-RP assay. PTH-RP is useful in the differential diagnosis of hypercalcemia and levels may be elevated in patients with tumor-associated hypercalcemia. Elevated results may also be observed in patients with renal disease. This test was developed and its analytical performance characteristics have been determined by [facility]. It has not been cleared or approved by FDA. This assay has been validated pursuant to the CLIA regulations and is used for clinical purposes. Results Received 01/20/21 Reference lab accession: [id number] Test performed by [facility] [address] [place] [address] Edger Machine Helper: Parvin Nelson MD,PHD,CHEVY No components found for: "25" No results found for: "VITAMIN" IMAGING DXA Performed: 12/16/22 Lumbar spine: 0.920 gms/cm2 T-score: -1.2 Left femoral neck: 0.632 gms/cm2 T-score: -2.0 Left forearm: 0.642 gms/cm2 T-score: -0.9 Using the NOF/WHO FRAX calculator, the 10 year absolute risk for any major osteoporotic fracture is13 % and the risk for hip fracture is 3.5 %. No previous study for comparison. THYROID ULTRASOUND - 04/24/2023 1:20 pm HISTORY Thyroid nodule COMPARISON Thyroid ultrasound 12/19/2021 TECHNIQUE Real time sonographic imaging of the thyroid was performed. FINDINGS Right lobe measures 2.3 x 0.7 x 0.9 cm, isthmus measures 0.4 cm, and left lobe measures 3.0 x 0.9 x0.7 cm. Thyroid gland is small in size. There is a 2.6 x 0.8 x 2.2 cm predominantly solid hypoechoic nodule in the right aspect of the thyroid isthmus (previously 2.7 x 1.9 x 2.3 cm on 11/01/20). There has been intervening parathyroid surgery. IMPRESSION IMPRESSION A predominantly solid hypoechoic nodule in the right isthmus is smaller in AP dimension from prior exam. This nodule was reportedly previously biopsied with benign pathology in 2020. Impression 78-year-old female with history of primary hypothyroidism, thyroid nodule (biopsy proven benign in December 2020), remained stable in size on most recent ultrasound done in April 2023, primary hyperparathyroidism- status post parathyroidectomy, normal calcium postop, osteopenia with FRAX risk 3.5% at hip from DEXA scan in November 2022 and vitamin-D deficiency. Continue levothyroxine 75 mcg 5 days per week, 2 tablets 2 days per week Continue vitamin-D 2000 units per day Increase dietary calcium intake, I have included handout in her after visit summary U.S. head and neck in April 2024 (this will be fourth the ultrasound since 10/2020) DEXA scan in November 2024 Return to clinic after April 2024 U.S. head and neck and blood work to check TSH and vitamin-D in April documented in this encounter Plan of Treatment Upcoming Encounters Date Type Department Care Team (Late st Contact Info) Description 01/20/2024 3:30 PM EST Office Visit Cardiology, [facility] [address] [place] [id number] Saba Zimmerman CRNP [address] [place] [id number] 03/29/2024 4:00 PM EDT Office Visit Allergy/Immunology [facility] [address] [facility] [place] [address] Nas Porter MD [address] [facility] [place] [address] Scheduled Orders Name Type Priority Associated Diagnoses Orde r Schedule US HEAD AND NECK Medical Imaging Routine 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 Thyroid nodule Expected: 05/06/2024 (Approximate), Expires: 01/15/2025 TSH WITH FREE T4 IF INDICATED Lab Routine 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 Thyroid nodule Expected: 05/06/2024 (Approximate), Expires: 12/18/2024 25-HYDROXY VITAMIN D Lab Routine Vitamin D deficiency Expected: 05/06/2024 (Approximate), Expires: 12/18/2024 Scheduled Procedures Name Priority Associated Diagnoses Date/Ti me COLONOSCOPY FLEXIBLE PROXIMA L DIAGNOSTIC Recall Special screening for malignant neoplasms, colon Health Maintenance Due Date Last Done Comments TSH 04/17/2024 04/17/2023, 01/2022, 07/05/2022, Additional history exists GFR 04/28/2024 10/28/2023, 11/2022, 08/19/2022, Additional history exists Albumin/Creatinine Ratio 10/28/20242 023, 04/17/2023, 11/15/2021, Additional history exists CKD HGB USE SMARTSET 98797 10/28/202410/28, 10/28/2023, 04/17/2023, Additional history exists CKD PHOS USE SMARTSET 24722 10/28/202410/17, 04/17/2023, 08/19/2022, Additional history exists HbA1c 10/28/2024 10/28/2023, 06/0 11/2022, 08/19/2022, Additional history exists Depression Screening 11/27/2024 11/27/2023 DTaP,Tdap,and Td Vaccines (2 - Td or [...] Diagnosis 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
--- OUTSIDE RECORDS SUMMARY | 2023-12-21 16:10 | External Medical Summary | Summary of Care ---
Author Name Unknown Organization [facility] Address [address] [place] [address] Phone [phone] Care Team Providers Care Lawn Service Manager Name Role Phone Dov Kohler Primary Care Provider Reason for Visit * Reason Comments Urinary Tract Infection Symptoms Pt here for complaints of a UTI since night. Encounter Details Date Type Department Care Team (Latest Contact Info) Description 12/06/2023 12:30 PM EST Convenient Care Visit [facility] [address] [place] [address] Devika Arriaga PA-C [address] [id number] UTI symptoms*; Urinary tract infection with hematuria, site unspecified Allergies Active Allergy Reactions Criticality Noted Date Comments Adhesive Tape Rash Low 12/12/2021 Erythromycin 05/29/2001 hives Cephalexin Rash 08/19/2017 Diffuse macular papular rash Coffey Oil Edema face/lips/tongue High 07/20/2015 Sulfa Antibiotics 05/29/2001 hives Wound Dressing Adhesive 07/29/2021 documented as of this encounter (statuses as of 12/06/2023) Medications Medication Sig Dispensed Refills Start Date End Date Status CENTRUM SILVER PO TABS 1 TABLET DAILY 0 11/15/2008 Active GLUCOSAMINE CHONDR COMPLEX 500-400 MG PO CAPS 1 daily 0 Active IBUPROFEN 200 MG PO CAPS Take by mouth every 6 hours as needed . 0 Active hydrocortisone 2.5 % creamIndications:Hi ves Apply topically to affected area 3 times [...] Tablet Take by mouth. 0 Active Ipratropium [place] 0.03 % Nasal Solution (Atrovent) Administer 2 Sprays into nostril in the morning and 2 Sprays at noon and 2 Sprays before bedtime. 2 sprays each nostril twice daily, may use mid day dose if needed. 90 mL 4 12/19/2022 Active Ondansetron HCl 4 MG Oral TabletIndications:V ertigo Take 1 Tablet by mouth every 6 hours as needed for Nausea. 30 Tablet 0 01/17/2023 Active Meclizine HCl 25 MG Oral Tablet (Antivert)Indicatio ns:Vertigo Take 1 Tablet by mouth 3 times a day as needed for Dizziness. 30 Tablet 1 01/17/2023 Active Fluticasone Propionate 50 MCG/ACT Nasal Suspension (Flonase) SPRAY 2 SPRAYS INTO EACH NOSTRIL EVERY DAY 48 mL 3 03/17/2023 Active Losartan Potassium 100 MG Oral Tablet (Cozaar)Indications :HTN, goal below 130/80 TAKE 1 TABLET BY MOUTH EVERY DAY 90 Tablet 3 04/17/2023 Active Triamcinolone Acetonide 0.1 % External Ointment (Aristocort) Apply topically to affected area 2 times a day. To affected area. 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 90 Tablet 3 10/20/2023 Active Nitrofurantoin Monohyd Macro 100 MG Oral Capsule (Macrobid)Indicatio ns:Urinary tract infection with hematuria, site unspecified Take 1 Capsule by mouth in the morning and 1 Capsule before bedtime. Do all this for 7 days. With food until gone. 14 Capsule 0 12/06/2023 4 Active Ciprofloxacin HCl 250 MG Oral Tablet (Cipro)Indications: Urinary tract infection with hematuria, site unspecified Take 1 Tablet by mouth in the morning and 1 Tablet before bedtime. Do all this for 3 days. 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 SUMMARY: Goal: Establish test [...] contact study staff at ; after hours Adult Manager via the [facility] assistant operator . Please contact study team before resolving/deleting from patients problem list. Study phone number: [phone]. Diagnosis changed due to Research Module. Go to Snapshot for study details. Encounter for examination fo r normal comparison and control in clinical research program 01/18/2019 07/18/2022 Overview: DO NOT DELETE - [facility]OPER Study: Project # [id number], Adult Manager: Scotty Addison, MS, MPH. SUMMARY: Goal: Establish [...] contact study staff at ; after hours Adult Manager via the [facility] assistant operator . - Please contact study team before resolving/deleting from patients problem list. Study phone number: [phone]. Diagnosis changed due to Research Module. Go to Snapshot for study details. 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 documented as of this encounter (statuses as of 12/06/2023) Immunizations Name Administration Dates Next Due COVID-19 mRNA, LNP-s, No Pre serve, 2-Dose Series (Sensitive Object) 10/02/2021,01/31/2021,01/03/2021 COVID-19, MRNA-LNP, 23-24, P F, 49 [...] Date Smoking Tobacco: Never Smokeless Tobacco: Never Tobacco Cessation:Counseling Given: Not Answered Alcohol Use Standard Drinks/Week Comments No 0 [...] on file documented as of this encounter Last Filed Vital Signs Vital Sign Reading Time Taken Comments Blood Pressure 136/68 12/06/2023 12:03 PM EST Pulse 106 12/06/2023 12:03 PM EST Temperature 36.9 C (98.5 F) 12/06/2023 12:[address] Respiratory Rate 16 12/06/2023 12:03 PM EST Oxygen Saturation 96% 12/06/2023 12:03 PM EST Inhaled Oxygen Concentration - - Weight 97.7 kg (215 lb 6.4 oz) 12/06/2023 12:03 PM EST Height 165.1 cm (5' 5") 12/06/2023 12:03 PM EST Body Mass Index 35.84 12/06/2023 12:03 PM EST documented in this encounter Progress Notes * Devika Arriaga PA-C - 12/06/2023 12:26 PM EST Subjective: Dysuria for a 1.5 days, feels like when she has had in the past HPI: Pt is a 78 year old YO female who presents c/o: Dysuria: yes Hematuria: yes Increased Frequency: yes Urgency: yes Flank Pain: no Abdominal Pain: yes Vaginal D/C: no Fever: no Malaise: no UTI PMHX: yes Renal Stone PMHX: no Gential Lesion/Rash: no Review of Systems Constitutional: Negative for fatigue and fever. Respiratory: Negative. Cardiovascular: Negative. Gastrointestinal: Negative. 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 Clindamycin HCl 150 MG Oral Capsule (Cleocin) Vitamin D 50 MCG (2000 UT) Oral Capsule Take 2,000 Units by mouth daily. Tamoxifen Citrate 20 MG Oral Tablet TAKE 1 TABLET BY MOUTH DAILY. TAKE WHOLE WITH WATER Vitamin E 200 UNIT Oral Tablet Take by mouth. Vitamin B6 100 MG Oral Tablet Take by mouth. Ipratropium [place] 0.03 % Nasal Solution (Atrovent) Administer 2 Sprays into nostril in the morning and 2 Sprays at noon and 2 Sprays before bedtime. 2 sprays each nostril twice daily, may use mid day dose if needed. 90 mL 4 Ondansetron HCl 4 MG Oral Tablet Take 1 Tablet by mouth every 6 hours as needed for Nausea. 30 Tablet 0 Meclizine HCl 25 MG Oral Tablet (Antivert) Take 1 Tablet by mouth 3 times a day as needed for Dizziness. 30 Tablet 1 Fluticasone Propionate 50 MCG/ACT Nasal Suspension (Flonase) SPRAY 2 SPRAYS INTO EACH NOSTRIL EVERYDAY 48 mL 3 Losartan Potassium 100 MG Oral Tablet (Cozaar) TAKE 1 TABLET BY MOUTH EVERY DAY 90 Tablet 3 Cetirizine HCl 10 MG Oral Tablet (ZyrTEC) TAKE ONE TABLET DAILY EACH MORNING 90 Tablet 3 Simvastatin 20 MG Oral Tablet (Zocor) TAKE 1 TABLET BY MOUTH EVERYDAY AT BEDTIME 90 Tablet 1 Levothyroxine Sodium 75 MCG Oral Tablet (Levoxyl) TAKE 1 TABLET 5 DAYS A WEEK AND 2 TABLETS 2 DAYS A WEEK 120 Tablet 1 amLODIPine Besylate 5 MG Oral Tablet (Norvasc) Take 1 Tablet by mouth in the morning. 90 Tablet 3 Ciprofloxacin HCl 250 MG Oral Tablet (Cipro) Take 1 Tablet by mouth in the morning and 1 Tablet before bedtime. Do all this for 3 days. 6 Tablet 0 IBUPROFEN 200 MG PO CAPS Take by mouth every 6 hours as needed . hydrocortisone 2.5 % cream Apply topically to affected area 3 times a day. To affected area. 30 g 1 Polyethyl Glycol-Propyl Glycol 0.4-0.3 % Ophthalmic Solution Instill into eye as needed for Dry eyes. AUG BETAMETHASONE DIPROPIONATE (DIPROLENE AF) 0.05 % cream Apply topically to affected area 2 timesa day. To affected area. 15 g 3 Triamcinolone Acetonide 0.1 % External Ointment (Aristocort) Apply topically to affected area 2 times a day. To affected area. 30 g 0 No current facility-administered medications for this visit. Past Medical History: Diagnosis Date Acute serous otitis media chronic Allergic rhinitis Aortic valve sclerosis 11/21/2016 Cataract 01/22/2010 Sees [facility] Dermatophytosis of scalp or cotter chronic Dysfunction of eustachian tube Dyslipidemia, goal LDL below 130 04/30/2011 Essential hypertension with goal blood pressure less than 140/90 11/21/2016 History of right shoulder replacement 01/07/2020 Hypertensive left ventricular hypertrophy, without heart failure 11/21/2016 Hypothyroidism 04/30/2011 Knee joint replacement status 04/26/2011 bilateral knee replacements Non-rheumatic mitral regurgitation 11/21/2016 mild 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 Rotator cuff syndrome Uterine leiomyoma Past Surgical History: Procedure Laterality Date ARTHROPLASTY KNEE TOTAL 04/26/2011 bilateral knee replacement COLONOSCOPY, DIAGNOSTIC (RECTUM) 2000 COLONOSCOPY, DIAGNOSTIC (RECTUM) 09/04/2015 tortuous colon, diverticulosis, repeat 10 yrs/COLONOSCOPY FLEXIBLE PROXIMAL DIAGNOSTIC performed byVera Garrison DO at ENDOSCOPY [facility] EXPLORE PARATHYROID GLANDS Right 05/23/2022 PARATHYROIDECTOMY performed by Tatianna Aldana MD at [facility] INJECT DX/THER SUBSTANCE INTERLAMINAR LUMBAR/SACRAL W IMAGE GUIDE 11/15/2021 INJECTION SPINE LUMBAR OR SACRAL performed by Blair Navarro DO at OR [facility] INJECT DX/THER SUBSTANCE INTERLAMINAR LUMBAR/SACRAL W IMAGE GUIDE 03/27/2022 INJECTION SPINE LUMBAR OR SACRAL performed by Blair Navarro DO at OR [facility] RECONSTRUCT/REPLACE SHOULDER JOINT Right REMOVAL OF MESENTERY LESION 06/04/01 mesenteric cyst removed Review of patient's allergies indicates: Allergen Reactions Coffey Oil Edema face/lips/tongue Erythromycin hives Keflex [Cephalexin] Rash Diffuse macular papular rash Sulfa Antibiotics hives Wound Dressing Adhesive Adhesive Tape Rash Objective: BP 136/68 | Pulse 106 | Temp 36.9 C (98.5 F) | Resp 16 | Ht 1.651 m (5' 5") | Wt 97.7 kg (215 lb 6.4 oz) | SpO2 96% | BMI 35.84 kg/m | BSA 2.12 m Physical Exam Constitutional: Appearance: Normal appearance. She is obese. She is not ill-appearing. Cardiovascular: Rate and Rhythm: Normal rate and regular rhythm. Heart sounds: Normal heart sounds. Pulmonary: Effort: Pulmonary effort is normal. Breath sounds: Normal breath sounds. Abdominal: General: There is no distension. Tenderness: There is abdominal tenderness (mild). There is no right CVA tenderness, left CVA tenderness or guarding. Neurological: Mental Status: She is alert. ASSESSMENT/PLAN: UTI symptoms (Primary) - URINALYSIS, POINT OF CARE (ENTER/EDIT) - CULTURE, URINE, QUANTITATIVE; Future; Expected date: 12/06/2023 - CULTURE, URINE, QUANTITATIVE Urinary tract infection with hematuria, site unspecified - CULTURE, URINE, QUANTITATIVE - Ciprofloxacin HCl 250 MG Oral Tablet (Cipro); Take 1 Tablet by mouth in the morning and 1 Tablet before bedtime. Do all this for 3 days. [facility] h/o provided on UTI Devika Arriaga PA-C documented in this encounter Miscellaneous Notes * Pt Handout (on AVS) - Devika Arriaga PA-C - 12/06/2023 1:54 PM EST Images from the original note were not included. [id number] Urinary Tract Infections in Women Urinary tract infections (UTIs) are most often caused by bacteria. These bacteria enter the urinarytract. The bacteria may come from inside the body. Or they may travel from the skin outside the rectum or vagina into the urethra. Female anatomy makes it easy for bacteria from the bowel to enter a person?s urinary tract. This is the most common source of UTIs. This means women develop UTIs more often than men. Pain in or around the urinary tract is a common UTI symptom. But the only way to know for sure if you have a UTI is for the healthcare provider to test your pee. The two tests that may be done are the urinalysis and urine culture. These tests tell your provider if you have a UTI and what type of bacteria is causing it. Gender words are used here to talk about anatomy and health risk. Please use this information in a way that works best for you and your provider as you talk about your care. Types of UTIs Cystitis. A bladder infection (cystitis) is the most common UTI in women. You may have an urgentor frequent need to pee. You may also have pain, burning when you pee, and bloody urine. Urethritis. This is an inflamed urethra. This is the tube that carries urine from the bladder tooutside the body. You may have lower stomach or back pain. You may also have an urgent or frequent need to pee. Pyelonephritis. This is a kidney infection. It can be serious and damage your kidneys if not treated. You may need to stay in the hospital in severe cases. You may have a fever and lower back pain. Medicines to treat a UTI Most UTIs are treated with antibiotics. These kill the bacteria. The length of time you need to take them depends on the type of infection. It may be as short as 3 days. You may need a low-dose antibiotic for several months if you have repeated UTIs. Take antibiotics exactly as directed. Don?t stoptaking them until all of the medicine is gone, even if you feel better. The infection may not go away fully and return if you stop taking the antibiotic too soon. You may also develop a resistance tothe antibiotic. This can make it much harder to treat. Lifestyle changes to treat and prevent UTIs The lifestyle changes below will help get rid of your UTI. They may also help prevent future UTIs. Drink plenty of fluids. This includes water, juice, or other caffeine-free drinks. Fluids help flush bacteria out of your body. Empty your bladder. Always empty your bladder when you feel the urge to pee. And always pee before going to sleep. Urine that stays in your bladder can lead to infection. Try to pee before and after sex as well. Practice good personal hygiene. Wipe yourself from front to back after using the toilet. This helps keep bacteria from getting into the urethra. Wear cotton underwear. Don't wear synthetic or tight-fitting underwear that can trap moisture. Change out of wet bathing suits and workout clothing quickly. Take showers. Showers are better than baths for preventing UTIs. Use condoms during sex. These help prevent UTIs caused by sexually transmitted bacteria. Also don't use spermicides during sex. These can increase the risk for UTIs. Choose other forms of control instead. A low dose of a preventive antibiotic may be used for women who tend to get UTIs after sex. Be sure to discuss this choice with your healthcare provider. Follow up with your healthcare provider as directed. They may test to make sure the infection has cleared. If needed, more treatment may be started. Last Reviewed Date: 06/17/[id number] [employer] All rights reserved. This information is not intended as a substitute for professional medical care. Always follow your healthcare professional's instructions. documented in this encounter Plan of Treatment Upcoming Encounters Date Type Department Care Team (Late st Contact Info) Description 12/18/2023 8:40 AM EST Telemedicine Endocrinology, [place] [address] [place] [address] Princess Monterroso MD [address] [place] [address] 01/20/2024 3:30 PM EST Office Visit Cardiology, [facility] [address] [facility] [place] [address] Saba Zimmerman CRNP [address] [facility] [place] [address] 03/29/2024 4:00 PM EDT Office Visit Allergy/Immunology [facility] [address] [place] [address] [place] [address] Nas Porter MD [address] [place] [address] Pending Results Name Type Priority Associated Diagnoses Date /Time CULTURE, URINE, QUANTITATIVE Lab STAT UTI symptoms Urinary tract infection with hematuria, site unspecified 12/06/2023 12:13 PM EST Scheduled Orders Name Type Priority Associated Diagnoses Orde r Schedule CULTURE, URINE, QUANTITATIVE Lab STAT UTI symptoms Expected: 12/06/2023, Expires: 12/06/2024 Scheduled Procedures Name Priority Associated Diagnoses Date/Ti me COLONOSCOPY FLEXIBLE PROXIMA L DIAGNOSTIC Recall Special screening for malignant neoplasms, colon Health Maintenance Due Date Last Done Comments TSH 04/17/2024 04/17/2023, 01/2022, 07/05/2022, Additional history exists GFR 04/28/2024 10/28/2023, 11/2022, 08/19/2022, Additional history exists Albumin/Creatinine Ratio 10/28/2024 023, 04/17/2023, 11/15/2021, Additional history exists CKD HGB USE SMARTSET 63734 10/28/202410/28, 10/28/2023, 04/17/2023, Additional history exists CKD PHOS USE SMARTSET 58425 10/28/202410/17, 04/17/2023, 08/19/2022, Additional history exists HbA1c 10/28/2024 10/28/2023, 11/2022, 08/19/2022, Additional history exists Depression Screening [...] Not on filedocumented as of this encounter Procedures Procedure Name Priority Date/Time Associated Diagnosis Comments URINALYSIS, POINT OF CARE (ENTER/EDIT) Routine 12/06/2023 UTI symptoms documented in this encounter Results * (ABNORMAL) URINALYSIS, POINT OF CARE (ENTER/EDIT) (12/06/2023) Color, Urine Other Yellow or Light Yellow Clarity, Urine Cloudy Clear Glucose, Urine Negative Negative mg/dL Bilirubin, Urine Negative Negative Ketone, Urine Negative Negative mg/dL Specific [place], Urine 1.015 1.003 - 1.030 Blood, Urine Moderate Negative pH, Urine 6.0 5.0 - 7.5 units Protein, Urine Negative Negative mg/dL Urobilinogen, Urine 0.2 0.2 - 1.0 mg/dL Nitrite, Urine Positive Negative Esterase, Urine Moderate Negative Urine 12/06/2023 Devika Arriaga PA-C LAB POINT OF C ARE TEST ENTER/EDIT ORDERABLES documented in this encounter Visit Diagnoses Diagnosis UTI symptoms- Primary Other symptoms involving urinary system Urinary tract infection with hematuria, site unspecified documented in this encounter Care Teams Lawn Service Manager Relationship Specialty Start Date End Date Dov Kohler DO [address] [place] [address] PCP - General Family Medicine 11/30/19 documented as of this encounter
--- OUTSIDE RECORDS SUMMARY | 2023-12-21 16:10 | External Medical Summary | Summary of Care ---
Author Name Unknown Organization [facility] Address [address] [place] [address] Phone [phone] Care Team Providers Care Performance Test Consultant Name Role Phone Dov Kohler Primary Care Provider Reason for Visit * Reason Comments Urinary Tract Infection Symptoms Pt here for complaints of a UTI since night. Encounter Details Date Type Department Care Team (Latest Contact Info) Description 12/06/2023 12:30 PM EST Convenient Care Visit [facility] [address] [place] [address] Devika Arriaga PA-C [address] [id number] UTI symptoms*; Urinary tract infection with hematuria, site unspecified Allergies Active Allergy Reactions Criticality Noted Date Comments Adhesive Tape Rash Low 12/12/2021 Erythromycin 05/29/2001 hives Cephalexin Rash 08/19/2017 Diffuse macular papular rash [place] Oil Edema face/lips/tongue High 07/20/2015 Sulfa Antibiotics [...] Tablet Take by mouth. 0 Active Ipratropium [place] 0.03 % Nasal Solution (Atrovent) Administer 2 [...] 01/18/2019 06/19/2020 Overview: DO NOT DELETE [facility] DETECT Study: Project # [id number], Platen Drier Operator: Mehrdad Hawkins, PhD. SUMMARY: Goal: Establish test [...] contact study staff at ; after hours Platen Drier Operator via the [facility] beveling and edging machine operator . Please contact study team before resolving/deleting from patients problem list. Study phone number: [phone]. Diagnosis changed due to Research Module. Go to Snapshot for study details. Encounter for examination fo r normal comparison and control in clinical research program 01/18/2019 07/18/2022 Overview: DO NOT DELETE - Mario COOPER Study: Project # [id number], Platen Drier Operator: Scotty Addison, MS, MPH. SUMMARY: Goal: Establish [...] contact study staff at ; after hours Platen Drier Operator via the [facility] beveling and edging machine operator . - Please contact study team before resolving/deleting from patients problem list. Study phone number: [phone]. Diagnosis changed due to Research Module. Go to Snapshot for study details. 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 Ipratropium [place] 0.03 % Nasal Solution (Atrovent) Administer 2 [...] DIAGNOSTIC performed byVera Garrison DO at ENDOSCOPY [facility] EXPLORE PARATHYROID GLANDS Right 05/23/2022 PARATHYROIDECTOMY performed by Tatianna Aldana MD at OR [facility] INJECT DX/THER SUBSTANCE INTERLAMINAR LUMBAR/SACRAL W IMAGE GUIDE 11/15/2021 INJECTION SPINE LUMBAR OR SACRAL performed by Blair Navarro DO at OR [facility] INJECT DX/THER SUBSTANCE INTERLAMINAR LUMBAR/SACRAL W IMAGE GUIDE 03/27/2022 INJECTION SPINE LUMBAR OR SACRAL performed by Blair Navarro DO at OR [facility] RECONSTRUCT/REPLACE SHOULDER JOINT Right REMOVAL OF MESENTERY LESION 06/04/01 mesenteric cyst removed Review of patient's allergies indicates: Allergen Reactions [place] Oil Edema face/lips/tongue Erythromycin hives Keflex [Cephalexin] [...] bedtime. Do all this for 3 days. [facility] h/o provided on UTI Devika Arriaga PA-C documented in this encounter Miscellaneous Notes * Pt Handout (on AVS) - Devika Arriaga PA-C - 12/06/2023 1:54 PM EST Images from the original note were not included. [id number] Urinary Tract Infections in Women Urinary tract [...] treatment may be started. Last Reviewed Date: 06/17/202319990204-6876 [employer]. All rights reserved. This information is not intended as a substitute for professional medical care. Always follow your healthcare professional's instructions. documented in this encounter Plan of Treatment Upcoming Encounters Date Type Department Care Team (Late st Contact Info) Description 12/18/2023 8:40 AM EST Telemedicine Endocrinology, [place] [address] [place] [address] Princess Monterroso MD [address] [place] [address] 01/20/2024 3:30 PM EST Office Visit Cardiology, [facility] [address] [facility] [place] [address] Saba Zimmerman CRNP 132 [facility] [place] [address] 03/29/2024 4:00 PM EDT Office Visit Allergy/Immunology [facility] [address] [place] [address] [place] [address] Nas Porter MD [address] [place] [address] Scheduled Orders Name Type Priority Associated Diagnoses Orde r Schedule CULTURE, URINE, QUANTITATIVE Lab STAT UTI symptoms Expected: 12/06/2023, Expires: 12/06/2024 Scheduled Procedures Name Priority Associated Diagnoses Date/Ti me COLONOSCOPY FLEXIBLE PROXIMA L DIAGNOSTIC Recall Special screening for malignant neoplasms, colon Health Maintenance Due Date Last Done Comments TSH 04/17/2024 04/17/2023, 01/2022, 07/05/2022, Additional history exists GFR 04/28/2024 10/28/2023, 0 11/2022, 08/19/2022, Additional history exists Albumin/Creatinine Ratio 10/28/2024 023, 04/17/2023, 11/15/2021, Additional history exists CKD HGB USE SMARTSET 03658 10/28/202410/28, 10/28/2023, 04/17/2023, Additional history exists CKD PHOS USE SMARTSET 89105 10/28/202410/17, 04/17/2023, 08/19/2022, Additional history exists HbA1c 10/28/2024 10/28/2023, 0 11/2022, 08/19/2022, Additional history exists Depression Screening [...] Negative Ketone, Urine Negative Negative mg/dL Specific [place], Urine 1.015 1.003 - 1.030 Blood, Urine [...] unspecified documented in this encounter Care Teams Performance Test Consultant Relationship Specialty Start Date End Date Dov Kohler DO [address] [place] [address] [place] [address] PCP - General Family Medicine 11/30/19 documented as of this encounter
--- OUTSIDE RECORDS SUMMARY | 2023-12-21 16:10 | External Medical Summary | Summary of Care ---
Author Name Unknown Organization [facility] Address [address] [place] [address] Phone [phone] Care Team Providers Care Brush Filler Hand Name Role Phone Dov Kohler DO Primary Care Provider Reason for Visit * Reason Comments Return Visit Pt here for 6 mo ret urn. No concerns noted. 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); Dyslipidemia, goal LDL below 130; Essential hypertension with goal blood pressure less than 140/90; Chronic kidney disease, stage 3a (HCC); Other specified hypothyroidism Allergies Active Allergy Reactions Criticality Noted Date Comments Adhesive Tape Rash Low 12/12/2021 Erythromycin 05/29/2001 hives Cephalexin Rash 08/19/2017 Diffuse macular papular rash [place] Oil Edema face/lips/tongue High 07/20/2015 Sulfa Antibiotics 05/29/2001 hives Wound Dressing Adhesive 07/29/2021 documented as of this encounter (statuses as of 11/27/2023) Medications Medication Sig Dispensed Refills Start Date End Date Status CENTRZAC SILVER PO TABS 1 TABLET DAILY 0 [...] Tablet Take by mouth. 0 Active Ipratropium [place] 0.03 % Nasal Solution (Atrovent) Administer 2 [...] for Dizziness. 30 Tablet 1 01/17/2023 Active Additional Information Patient not taking.Reported on 11/27/2023 Fluticasone Propionate 50 MCG/ACT Nasal Suspension (Flonase) [...] EACH MORNING 90 Tablet 3 09/02/2023 Active Additional Information Patient not taking.Reported on 11/27/2023 Simvastatin 20 MG Oral Tablet (Zocor)Indications:D yslipidemia, [...] as of this encounter (statuses as of 11/27/2023) Active Problems Problem Noted Date Diagnosed Date [...] as of this encounter (statuses as of 11/27/2023) Resolved Problems Problem Noted Date Diagnosed Date Resolved Date Hypertensive heart/kidney di sease without HF and with CKD stage III 05/05/2019 09/28/2020 Overview: Per CKD protocol Encounter for examination fo r normal comparison and control in clinical research program 01/18/2019 06/19/2020 Overview: DO NOT DELETE [facility] DETECT Study: Project # [id number], Vision Care Associate: eMhrdad Hawkins, PhD. SUMMARY: Goal: Establish test characteristics [...] contact study staff at ; after hours Vision Care Associate via the [facility] [place] roughing mill operator . Please contact study team before resolving/deleting from patients problem list. Study phone number: [phone]. Diagnosis changed due to Research Module. Go to Snapshot for study details. Encounter for examination fo r normal comparison and control in clinical research program 01/18/2019 07/18/2022 Overview: DO NOT DELETE - [employer] DETECT Study: Project # [id number], Vision Care Associate: Scotty Addison, MS, MPH. SUMMARY: Goal: Establish [...] contact study staff at ; after hours Vision Care Associate via the [facility] roughing mill operator . - Please contact study team before resolving/deleting from patients problem list. Study phone number: [phone]. Diagnosis changed due to Research Module. Go to Snapshot for study details. 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 documented as of this encounter (statuses as of 11/27/2023) Immunizations Name Administration Dates Next Due COVID-19 mRNA, LNP-s, No Pre serve, 2-Dose Series ([email or web address]) 10/02/2021,01/31/2021,01/03/2021 COVID-19, MRNA-LNP, 23-24, P F, 49 [...] Sign Reading Time Taken Comments Blood Pressure 128/68 11/27/2023 4:21 PM EST Pulse 101 11/27/2023 4:21 PM EST Temperature 37.3 C (99.2 F) 11/27/2023 4:21 PM ES T Respiratory Rate 16 11/27/2023 4:21 PM EST Oxygen Saturation 96% 11/27/2023 4:21 PM EST Inhaled Oxygen Concentration - - Weight 97.7 kg (215 lb 6 oz) 11/27/2023 4:21 PM EST Height - - Body Mass Index 35.84 07/25/2023 8:50 AM EDT documented in this encounter Progress Notes * Dov Kohler, - 11/27/2023 4:34 PM EST Images from the original note were not included. 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 No concerns noted.) Presents in f/u today Doing very well overall Compliant with medications Still navigating stairs well And has good ambulatory strength Physical Exam Vitals: 11/27/23 1621 Temp: 37.3 C (99.2 F) Pulse: 101 Resp: 16 SpO2: 96% BP: 128/68 Physical Exam Constitutional: Appearance: Normal appearance. HENT: Head: Normocephalic and atraumatic. Eyes: Extraocular Movements: Extraocular movements intact. Pupils: Pupils are equal, round, and reactive to light. Cardiovascular: Rate and Rhythm: Normal rate and regular rhythm. Pulmonary: Effort: Pulmonary effort is normal. Breath sounds: Normal breath sounds. Neurological: General: No focal deficit present. Mental Status: She is alert and oriented to person, place, and time. Psychiatric: Mood and Affect: Mood normal. Behavior: Behavior normal. Wrap-Up Time: Total time today was 42 minutes excluding any time spent in the performance of separately billed services. documented in this encounter Plan of Treatment Upcoming Encounters Date Type Department Care Team (Late st Contact Info) Description 12/18/2023 8:40 AM EST Telemedicine Endocrinology, [place] [address] [place] [address] Princess Monterroso MD [address] [place] [address] 01/20/2024 3:30 PM EST Office Visit Cardiology, [facility] [place] [address] Saba Zimmerman CRNP [address] [place] [address] 03/29/2024 4:00 PM EDT Office Visit Allergy/Immunology [facility] 200 [place] [address] Nas Porter MD [address] [place] [address] Scheduled Orders Name Type Priority Associated Diagnoses Orde r Schedule TSH WITH FREE T4 IF INDICATED Lab Routine Other specified hypothyroidism Expected: 11/26/2024 (Approximate), Expires: 11/26/2024 CBC WITH WBC DIFFERENTIAL Lab Routine Chronic kidney disease, stage 3a (HCC) Expected: 11/26/2024 (Approximate), Expires: 11/27/2024 COMPREHENSIVE METABOLIC PANEL Lab Routine Prediabetes Dyslipidemia, goal LDL below 130 Expected: 11/26/2024 (Approximate), Expires: 11/27/2024 HEMOGLOBIN A1C Lab Routine Prediabetes Expected: 11/26/2024 (Approximate), Expires: 11/27/2024 ALBUMIN / CREATININE RATIO, URINE Lab Routine Prediabetes Expected: 11/26/2024 (Approximate), Expires: 11/27/2024 LIPID PANEL WITH DIRECT LDL IF TG IS HIGH Lab Routine Dyslipidemia, goal LDL below 130 Expected: 11/26/2024 (Approximate), Expires: 11/27/2024 Scheduled Procedures Name Priority Associated Diagnoses Date/Ti me COLONOSCOPY FLEXIBLE PROXIMA L DIAGNOSTIC Recall Special screening for malignant neoplasms, colon Health Maintenance Due Date Last Done Comments Depression Screening 10/14/2023 11/27/2023 TSH 04/17/2024 04/17/2023, 01/2022, 07/05/2022, Additional history exists GFR 04/28/2024 10/28/2023, 0 11/2022, 08/19/2022, Additional history exists Albumin/Creatinine Ratio 10/28/2024 023, 04/17/2023, 11/15/2021, Additional history exists CKD HGB USE SMARTSET 35287 10/28/202410/28, 10/28/2023, 04/17/2023, Additional history exists CKD PHOS USE SMARTSET 14393 10/28/202410/17, 04/17/2023, 08/19/2022, Additional history exists HbA1c 10/28/2024 10/28/2023, 0 11/2022, 08/19/2022, Additional history exists DTaP,Tdap,and Td [...] as of this encounter Visit Diagnoses Diagnosis Prediabetes- Primary Other abnormal glucose Hyperparathyroidism (HCC) Hyperparathyroidism, unspecified 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
--- OUTSIDE RECORDS SUMMARY | 2023-12-21 16:10 | External Medical Summary ---
Author Name Unknown Address Unknown Organization K01:[facility] - [address] [facility] [address] Laboratory Report Ordering Provider Test Date Status ATILIO BARRERA 12/06/2023 12:13:16 Final <10,000 colonies/ml mixed no rmal le Observation Date Value Abnormality Reference (Units ) Status Bacteria identified in Specimen by Culture 12/06/2023 12:13:16 [id number]^ESCHE RICHIA COLI ESBL Abnormal Final >100,000 colonies/mL Escheri calvin coli ESBL producing organism, This patient may require isolation.
This gram negative bacilli displays in vitro resistance to multiple antibiotics. This patient may require isolation. Carbapenem use is preferred. Contact infectious disease service for further recommendations. Performing Location [facility] - [address] [facility] [address] Ordering Provider Test Date Status ATILIO BARRERA 12/06/2023 12:13:16 Final Observation Date Value Abnormality Reference (Units ) Status Ampicillin 12/06/2023 12:13:16 >=32 Resistant Final Ampicillin + Sulbactam 12/06/2023 12:13:16 4 Susceptible Final Cefazolin 12/06/2023 12:13:16 >=64 Resistant Final Cefepime susceptibility 12/06/2023 12:13:16 <=1 Susceptible Final Ceftriaxone suceptibility 12/06/2023 12:13:16 >=64 Resistant Final Ciprofloxacin 12/06/2023 12:13:16 0.5 Intermediate Final Due to serious side effects, the FDA has advised against using Ciprofloxacin to treat uncomplicated UTIs and respiratory tract infections unless there are no alternative treatment options. Gentamicin susceptibility 12/06/2023 12:13:16 <=1 Susc eptible Final Levofloxacin susceptibility 12/06/2023 12:13:16 1 In termediate Final Due to serious side effects, the FDA has advised against using Levofloxacin to treat uncomplicated UTIs and respiratory tract infections unless there are no alternative treatment options. Meropenem [Susceptibility] 12/06/2023 12:13:16 <=0.25 Bonny ceptible Final Nitrofurantoin susceptibility 12/06/2023 12:13:16 <=16 Susceptible Final Piperacillin + Tazobactamsusceptibility 12/06/2023 12:13:16 <=4 Susceptible Final TMP-SMZ susceptibility 12/06/2023 12:13:16 <=20 Suscept ible Final Performing Location [facility] [place] [address] [facility] [address] Ordering Provider Test Date Status ATILIO BARRERA 12/06/2023 12:13:16 Final Observation Date Value Abnormality Reference (Units ) Status Ertapenem [Susceptibility] 12/06/2023 12:13:16 30 Susceptible Susceptible >21 , Intermediate <=21 , Resistant <=18 Final Test: Culture, Urine, Quanti tative
Specimen Source: Urine, Clean Catch
Specimen Type: Urine
Specimen Date: 12/06/2023 12:13 PM
Result Date: 12/09/2023 2:11 PM
Result Status: Final result
Abnormal: Yes
Resulting Lab: [facility]
[address]
[facility] [address]

CULTURE

>100,000 colonies/mL Escherichia coli ESBL producing organism, This patient may
require isolation. (Abnormal)

This gram negative bacilli displays in vitro resistance to multiple
antibiotics. This patient may require isolation. Carbapenem use is
preferred. Contact infectious disease service for further recommendations.

<10,000 colonies/ml mixed normal le

SUSCEPTIBILITY

Escherichia coli ESBL Escherichia coli ESBL
producing organism, This producing organism, This
patient may require patient may require
isolation. isolation.
METHOD BARRAGAN JACKMAN MICROBROTH DILUTIONS

AMPICILLIN >=32 Resistant
AMPICILLIN/SULBACTAM 4 Susceptible
CEFAZOLIN >=64 Resistant
CEFEPIME <=1 Susceptible
CEFTRIAXONE >=64 Resistant
CIPROFLOXACIN 0.5 Intermediate [1]
ERTAPENEM 30 Susceptible
GENTAMICIN <=1 Susceptible
LEVOFLOXACIN 1 Intermediate [2]
MEROPENEM <=0.25 Susceptible
NITROFURANTOIN <=16 Susceptible
PIPERACILLIN TAZOBACTAM <=4 Susceptible
TRIMETH/SULFAMETHOXAZOLE <=20 Susceptible

[1] Due to serious side effects, the FDA has advised against using
Ciprofloxacin to treat uncomplicated UTIs and respiratory tract infections
unless there are no alternative treatment options.

[2] Due to serious side effects, the FDA has advised against using
Levofloxacin to treat uncomplicated UTIs and respiratory tract infections
unless there are no alternative treatment options.

null Performing Location LAB[facility]ATORY [facility] - [address] [facility] [address]
--- OUTSIDE RECORDS SUMMARY | 2023-12-21 16:10 | External Medical Summary | Summary of Care ---
Author Name Unknown Organization [facility] Address [address] [place] [address] Phone [phone] Care Team Providers Care Statistical Typist Name Role Phone KohlerSeanr Justin Primary Care Provider Reason for Visit * Reason Onset Date Comments Urinary Tract Infection Symptoms Pt here for complaints of UTI since 12/06/23. Pt was treated but still has complaints . Pt tested positive for covid on 12/19/23 Urinary Tract Infection Symptoms 12/21/2023 Encounter Details Date Type Department Care Team (Late st Contact Info) Description 12/21/2023 2:10 PM EST Convenient Care Visit [facility] [address] [place] [address] Wilfredo Zimmerman PA-C [address] [place] [address] UTI symptoms*; COVID-19 Allergies Active Allergy Reactions Criticality Noted Date Comments Adhesive Tape Rash Low 12/12/2021 Erythromycin 05/29/2001 hives Cephalexin Rash 08/19/2017 Diffuse macular papular rash Romeo Oil Edema face/lips/tongue High 07/20/2015 Sulfa Antibiotics 05/29/2001 hives Wound Dressing Adhesive 07/29/2021 documented as of this encounter (statuses as of 12/21/2023) Medications Medication Sig Dispensed Refills Start Date [...] Tablet Take by mouth. 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 SUMMARY: Goal: Establish test [...] contact study staff at ; after hours Survey Research Center Director via the [facility] tube bending machine operator . Please contact study team before resolving/deleting from patients problem list. Study phone number: [phone]. Diagnosis changed due to Research Module. Go to Snapshot for study details. Encounter for examination fo r normal comparison and control in clinical research program 01/18/2019 07/18/2022 Overview: DO NOT DELETE - [facility] DETECT Study: Project # [id number], Survey Research Center Director: Scotty Addison, MS, MPH. SUMMARY: Goal: Establish [...] contact study staff at ; after hours Survey Research Center Director via the [facility] hospital tube bending machine operator . - Please contact study team before resolving/deleting from patients problem list. Study phone number: [phone]. Diagnosis changed due to Research Module. Go to Snapshot for study details. 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 documented as of this encounter (statuses as of 12/21/2023) Immunizations Name Administration Dates Next Due COVID-19 mRNA, LNP-s, No Pre serve, 2-Dose Series (INCIDE) 10/02/2021,01/31/2021,01/03/2021 COVID-19, MRNA-LNP, 23-24, P F, 50 MCG/0.5 mL, 12 YRS AND ABOVE, IM (MODERNA-Spikevax) 09/02/2023 COVID-19, mRNA, LNP-s, PF, B ooster, 100mcg/0.5mg (Moderna) 05/30/2022 Covid-19, Mrna, Lnp-s, Pf, B ivalent, 30 Mcg, IM, 12 yrs and above (INCIDE) 08/27/2022 H1N1 2009 Influenza, IM 12/20/2009 Pneumococcal [...] Sign Reading Time Taken Comments Blood Pressure 136/72 12/21/2023 3:09 PM EST Pulse 95 12/21/2023 3:09 PM EST Temperature 37.2 C (98.9 F) 12/21/2023 3:09 PM ES T Respiratory Rate 16 12/21/2023 3:09 PM EST Oxygen Saturation 96% 12/21/2023 3:09 PM EST Inhaled Oxygen Concentration - - Weight 98.2 kg (216 lb 6.4 oz) 12/21/2023 3:09 P M EST Height 165.1 cm (5' 5") 12/21/2023 3:09 PM EST Body Mass Index 36.01 12/21/2023 3:09 PM EST documented in this encounter Patient Instructions * Patient Instructions* Wilfredo Zimmerman PA-C - 12/21/2023 3:41 PM EST Go to ER now. documented in this encounter Progress Notes * Wilfredo Zimmerman PA-C - 12/21/2023 3:09 PM EST CONVENIENT CARE PROGRESS NOTE Zehra Zimmerman is a 78 year old female with a MPH of hyperparathyroidism, HTN, LVH, CKD3, h/o recurrent UTIs who presents with urinary tract symptoms. Patient was accompanied by Self. HPI: She was here on 12/06/23 for dysuria, started on macrobid for a UTI. She did not respond to this, so she notes that a pharmacist put her on 5 days of cipro. She again did not respond to this. Per chart review, her urine grew ESBL producing E.coli that was intermediately susceptible to cipro. However, since she was switched to cipro, and due to her other allergies, she was continued on cipro. Per chart review, internal medicine states: "The antibiotic resistance pattern means we can't use Amoxicillin and Cipro/Levaquin may not work (intermediate). Her allergies mean we can't use Bactrim or Cefdinir. We don't really have other oral options. We can switch to Cipro but it's very possible it won't work based on culture results. Recommend pushing fluids. If patient is worse she will likely need to go to the emergency department." This was relayed to patient on 12/12. She is back here, however, instead of the ER. Severity of Symptoms: Moderate Timing (How often does it occur): constant Quality (Feels Like): dysuria, frequency, urgency, low back pain Other associated Signs and Symptoms: denies hematuria, abn vaginal discharge, cloudy, smelly urine.F/s/ch Of note, she tested positive for COVID19 on 12/19/23 and reports sinus, cough, sob Denies n/v/d/c, [facility], [place]. ROS: See HPI HISTORY: Past Medical History: Diagnosis Date Acute serous otitis media chronic Allergic rhinitis Aortic valve sclerosis 11/21/2016 Cataract 01/22/2010 Sees [facility] Dermatophytosis of scalp or cotter [...] DIAGNOSTIC performed byVera Garrison DO at ENDOSCOPY [facility] EXPLORE PARATHYROID GLANDS Right 05/23/2022 PARATHYROIDECTOMY performed by Tatianna Aldana MD at [facility] INJECT DX/THER SUBSTANCE INTERLAMINAR LUMBAR/SACRAL W IMAGE GUIDE 11/15/2021 INJECTION SPINE LUMBAR OR SACRAL performed by Blair Navarro DO at OR 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 Social History Socioeconomic History Marital status: Spouse name: Not on file Number of children: Not on file Years of education: Not on file Highest education level: Not on file Occupational History Employer: [employer] Tobacco Use Smoking status: Never Smokeless tobacco: Never Vaping Use Vaping Use: Never used Substance and Sexual Activity Alcohol use: No Drug use: No Sexual activity: Not on file Other Topics Concern Not on file Social History Narrative Not on file Social Determinants of Health Financial Resource Strain: Not on file Food Insecurity: No Food Insecurity (11/30/2019) Hunger Vital Sign Worried About Running Out of Food in the Last Year: Never true Ran Out of Food in the Last Year: Never true Transportation Needs: Not on file Physical Activity: Not on file Stress: Not on file Social Connections: Not on file Intimate Partner Violence: Not on file Housing Stability: Not on file Current Outpatient Medications Medication Sig Dispense Refill CENTRUM SILVER PO TABS 1 TABLET DAILY 0 GLUCOSAMINE CHONDR COMPLEX 500-400 MG PO CAPS 1 daily IBUPROFEN 200 MG PO CAPS Take by mouth every 6 hours as needed . Polyethyl Glycol-Propyl Glycol 0.4-0.3 % Ophthalmic Solution Instill into eye as needed for Dry eyes. Vitamin D 50 MCG (2000 UT) Oral Capsule Take 2,000 Units by mouth daily. Tamoxifen Citrate 20 MG Oral Tablet TAKE 1 TABLET BY MOUTH DAILY. TAKE WHOLE WITH WATER Vitamin E 200 UNIT Oral Tablet Take by mouth. Vitamin B6 100 MG Oral Tablet Take by mouth. Fluticasone Propionate 50 MCG/ACT Nasal Suspension (Flonase) [...] mouth in the morning. 90 Tablet 3 hydrocortisone 2.5 % cream Apply topically to affected area 3 times a day. To affected area. 30 g 1 AUG BETAMETHASONE DIPROPIONATE (DIPROLENE AF) 0.05 % cream Apply topically to affected area 2 timesa day. To affected area. 15 g 3 Acetaminophen ER 650 MG Oral Tablet Extended Release Take 1 Tablet by mouth every 8 hours as needed. Clindamycin HCl 150 MG Oral Capsule (Cleocin) Ipratropium Ulysses 0.03 % Nasal Solution (Atrovent) Administer 2 [...] as needed for Dizziness. 30 Tablet 1 Triamcinolone Acetonide 0.1 % External Ointment (Aristocort) Apply topically to affected area 2 times a day. To affected area. 30 g 0 No current facility-administered medications for this visit. Review of patient's allergies indicates: Allergen Reactions Romeo Oil Edema face/lips/tongue Erythromycin hives Keflex [Cephalexin] Rash Diffuse macular papular rash Sulfa Antibiotics hives Wound Dressing Adhesive Adhesive Tape Rash Family History Problem Relation Age of Onset Heart Disorder Mother Malcolm cardia -PPM Thyroid Disorder Mother Heart Disorder Father Tachy-malcolm /PPM Thyroid Disorder Father Allergies Daughter Other (arthritis) Brother Diabetes Sister Diabetes Sister Anemia Sister Diabetes Sister Other (alcohol abuse) Sister OBJECTIVE: BP 136/72 (BP Site: Left Arm, BP Position: Sitting, BP Cuff Size: Regular) | Pulse 95 | Temp 37.2 C (98.9 F) (Tympanic) | Resp 16 | Ht 1.651 m (5' 5") | Wt 98.2 kg (216 lb 6.4 oz) | SpO2 96% | BMI 36.01 kg/m | BSA 2.12 m Wt Readings from Last 1 Encounters: 12/21/23 98.2 kg (216 lb 6.4 oz) General appearance: awake, alert, no apparent distress Abdominal Exam: back: no CVA tenderness and abd: +suprapubic tenderness to palpation, no R/R/G, +BS Respiratory: clear to auscultation, no rhonchi, no wheezes, and no crackles Heart: regular rate, regular rhythm, no murmurs , no rubs, and no gallops Skin/Integumentary: warm, dry Results for orders placed or performed in visit on 12/21/23 URINALYSIS, POINT OF CARE (ENTER/EDIT) Result Value Ref Range Color, Urine Yellow Yellow or Light Yellow Clarity, Urine Clear Clear Glucose, Urine Negative Negative mg/dL Bilirubin, Urine Negative Negative Ketone, Urine Negative Negative mg/dL Specific [place], Urine 1.020 1.003 - 1.030 Blood, Urine Small Negative pH, Urine 6.5 5.0 - 7.5 units Protein, Urine Negative Negative mg/dL Urobilinogen, Urine 0.2 0.2 - 1.0 mg/dL Nitrite, Urine Negative Negative Esterase, Urine Negative Negative Patient Instructions Go to ER now. Assessment: UTI symptoms (Primary) - URINALYSIS, POINT OF CARE (ENTER/EDIT) - CULTURE, URINE, QUANTITATIVE COVID-19 UA shows just blood. Finished abx two days ago (cipro). With continued symptoms, resistance patterns, and allergies, likely needs IV abx. Would likely qualify for admission due to failed outpatient tx(x2). Referred to ER for further work-up and management. Report called to devulcanizer charger Follow Up: Return for Patient to follow up with Primary Care Provider as directed. | For: Patient to follow up with Primary Care Provider as directed Patient goals for plan of care were discussed Wilfredo Zimmerman PA-C [address] [address] documented in this encounter Plan of Treatment Upcoming Encounters Date Type Department Care Team (Late st Contact Info) Description 01/20/2024 3:30 PM EST Office Visit Cardiology, [facility] [address] [facility] [place] [address] Saba Zimmerman CRNP [address] [facility] [place] [address] 03/29/2024 4:00 PM EDT Office Visit All[facility] [address] [place] [address] Nas Porter MD [address] [place] [address] 05/10/2024 2:15 PM EDT Imaging Radiology [facility] 2nd Floor, [address] [place] [address] Pending Results Name Type Priority Associated Diagnoses Date /Time CULTURE, URINE, QUANTITATIVE Lab STAT UTI symptoms 12/21/2023 3:15 PM EST Scheduled Procedures Name Priority Associated Diagnoses Date/Ti me COLONOSCOPY FLEXIBLE PROXIMA L DIAGNOSTIC Recall Special screening for malignant neoplasms, colon Health Maintenance Due Date Last Done Comments TSH 04/17/2024 04/17/2023, 01/2022, 07/05/2022, Additional history exists GFR 04/28/2024 10/28/2023, 0 11/2022, 08/19/2022, Additional history exists Albumin/Creatinine Ratio 10/28/2024 023, 04/17/2023, 11/15/2021, Additional history exists CKD HGB USE SMARTSET 18060 10/28/202410/28, 10/28/2023, 04/17/2023, Additional history exists CKD PHOS USE SMARTSET 20203 10/28/202410/17, 04/17/2023, 08/19/2022, Additional history exists HbA1c [...] Comments URINALYSIS, POINT OF CARE (ENTER/EDIT) Routine 12/21/2023 UTI symptoms documented in this encounter Results * (ABNORMAL) URINALYSIS, POINT OF CARE (ENTER/EDIT) (12/21/2023) Color, Urine Yellow Yellow or Light Yellow Clarity, Urine Clear Clear Glucose, Urine Negative Negative mg/dL Bilirubin, Urine Negative Negative Ketone, Urine Negative Negative mg/dL Specific [place], Urine 1.020 1.003 - 1.030 Blood, Urine Small Negative pH, Urine 6.5 5.0 - 7.5 units Protein, Urine Negative Negative mg/dL Urobilinogen, Urine 0.2 0.2 - 1.0 mg/dL Nitrite, Urine Negative Negative Esterase, Urine Negative Negative Urine 12/21/2023 Wilfredo Zimmerman PA-C LAB POINT O F CARE TEST ENTER/EDIT ORDERABLES documented in this encounter Visit Diagnoses Diagnosis UTI symptoms- Primary Other symptoms involving urinary system COVID-19 documented in this encounter Additional Health Concerns Infection Onset Date Last Indicated Resolved Time ESBL 12/06/2023 12/06/2023 documented as of this encounter Care Teams Statistical Typist Relationship Specialty Start Date End Date Dov Kohler DO [address] [place] [address] PCP - General Family Medicine 11/30/19 documented as of this encounter
--- NOTE | 2023-12-21 16:37 | XRay Report ---
XR chest 1V not portable HISTORY: 78 years-old Female covid positive 2 days ago Q shortness of breath COMPARISON: 10/29/2023 TECHNIQUE: AP view of the chest FINDINGS: Cardiomediastinal and hilar silhouettes are within normal limits. No pneumothorax, large pleural effu cesar, overt pulmonary edema or lobar airspace consolidation. Blunting of the right lateral costophren ic angle. Right shoulder arthroplasty. Degenerative changes of the spine and left shoulder. IMPRESSION: 1. Blunting of the lateral right costophrenic angle may be secondary to atelectasis versus a trace pl eural effusion. 2. No airspace consolidation to suggest pneumonia. ACT 112: Negative or not required by law. The above report was generated using voice recognition software. It may contain grammatical, syntax o r spelling errors. Electronically signed by: Keshawn Reilly M.D. 12/21/2023 4:36 PM
--- NOTE | 2023-12-21 16:38 | Emergency Department Note ---
Impression & Plan Acute flank pain, Acute UTI (urinary tract infection), Pleural effusion on right ED Provider Note NAME: PAIGE LOPEZ AGE: 78 SEX: F : 1945 ARRIVES VIA: Walk-In INFORMANT: Patient, ED PROVIDER(S): Td Grey DO CHIEF COMPLAINT: Flank pain HPI: The patient is a 78-year-old female who presented to the emergency department for flank pain. The patient's been having problems with flank pain over the course the last few weeks. The patient has been treated with 2 different antibiotics for urinary tract infection. She has multiple antibiotic allergies so she was told to go to the emergency department for further evaluation. She notices right flank pain as well as hematuria. She denies having any chest pain or difficulty breathing. She was recently tested positive for COVID. She denies having any hemoptysis or leg swelling. ROS: See above HPI for pertinent positives & negatives. A total of 10 systems reviewed and were otherwise negative. PAST MEDICAL HISTORY: See Below PAST SURGICAL HISTORY: See Below FAMILY HISTORY: See Below SOCIAL HISTORY: See Below HOME MEDICATIONS: See Below ALLERGIES: See Below VITALS: See Below PHYSICAL EXAMINATION: GENERAL: Patient is awake alert in no acute distress patient is resting comfortably and showing no signs of anxiety EYES: The conjunctivae are clear. The pupils are round and reactive. EARS, NOSE, MOUTH AND THROAT: The nose is without any evidence of any deformity. NECK: The neck is nontender and supple. RESPIRATORY: Normal respiratory effort is noted there is no evidence of wheezing rhonchi or rales CARDIOVASCULAR: Regular rate and rhythm was noted to auscultation. Systolic murmur was suggested. GASTROINTESTINAL: The abdomen is soft. Abdomen is nontender. PELVIS: The Pelvis is stable. No tenderness to palpation is noted. BACK: Right flank pain was noted to palpation. There is no midline tenderness. MUSCULOSKELETAL/EXTREMITIES: There is no evidence of gross deformity full range of motion is noted in the hips and shoulders. SKIN: There is no obvious evidence of any rash. Pedal edema was noted bilaterally NEUROLOGIC: Patient is awake alert and oriented x3 MEDICAL DECISION MAKING: The patient is a 78-year-old female who presented to the emergency department at the request of her primary care physician for an evaluation of flank pain. The patient was treated with 2 different antibiotics for presumed urinary tract infection noted on urinalysis. Urine culture came back positive for E. coli with ESBL. The patient was advised to go to the emergency department because of this resistant bacteria. She was treated with antibiotics in emergency department. I discussed the patient's laboratory and radiographic studies with her. She was found to have signs of a pleural effusion on imaging. [facility] agreed to evaluate the patient in the emergency department for further management and disposition. Triage Nursing notes reviewed. Prior medical records reviewed Vital Signs: reviewed and remarkable for no significant abnormalities Differential diagnosis: Renal colic, UTI, appendicitis, diverticulitis, mesenteric ischemia, aortic pathology, infections, inflammatory bowel disease, PUD, biliary pathology, as well as other pathologies. ER treatment provided: See below Diagnostics interpreted by me: ECG: none Cardiac Monitoring: An order was placed for continuous cardiac monitoring. The monitor shows a rate of 89 bpm with sinus rhythm. Laboratory studies: As stated above and show below. Imaging studies: See below. Radiographic imaging was reviewed by myself Consultation(s): I discussed this case with Dr. Dallas who [facility]. 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 Helton 05/28/2021 History of hysterectomy History of breast biopsy History of cataract surgery Bilateral History of reverse total replacement of right shoulder joint (~12/2019) Hx of colonoscopy Hx of abdominal surgery MESENTERIC CYST REMOVED S/P knee replacement RIGHT AND LEFT H/O: hysterectomy Family History Sister Breast cancer Mother Breast cancer Pt believes this to be true Pacemaker Grandmother (Maternal) Breast cancer Father , 91yo Pacemaker Osteomyelitis Stroke CHF (congestive heart failure) Sister Diabetes Sister Stroke Hypertension Diabetes Sister Diabetes Daughter No problems noted. 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 How many Children do You have: 1 Feels Safe at Home: Yes Diet: regular caffeine: Yes (Diet coke 2-3 cans/day) during the past year weight has: remained stable Assistive Devices: Cane Allergies Allergies Allergy/AdvReac Type Severity Reaction Status Date / Time olive oil Allergy Severe EDEMA Verified 12/21/23 18:37 FACE/LIPS/TONGUE adhesive Allergy Intermediate skin Verified 12/21/23 18:37 irritation cephalexin Allergy Intermediate DIFFUSE Verified 12/21/23 18:37 MACULAR PAPULAR RASH erythromycin base Allergy Intermediate HIVES Verified 12/21/23 18:37 Sulfa (Sulfonamide Allergy Intermediate HIVES Verified 12/21/23 18:37 Antibiotics) Home Meds Home Medications Medication Instructions Recorded Confirmed simvastatin 20 mg tablet (Zocor) 20 mg PO QPM 11/01/19 12/21/23 betamethasone, augmented 0.05 % 1 applic topical BID PRN NEEDED 04/18/21 12/21/23 topical cream TO AFFECTED AREAS cholecalciferol (vitamin D3) 50 50 mcg PO QAM 04/18/21 12/21/23 mcg (2,000 unit) capsule fluticasone propionate 50 2 spray intranasal DAILY 04/18/21 12/21/23 mcg/actuation nasal spray,suspension hydrocortisone 2.5 % topical cream 1 applic topical TID PRN NEEDED 04/18/21 12/21/23 levothyroxine 75 mcg capsule See Rx Instructions .Route .COMPLEX 04/18/21 12/21/23 losartan 100 mg tablet 100 mg PO QAM 05/18/21 12/21/23 meclizine 25 mg tablet 25 mg PO TID PRN Vertigo 05/18/21 12/21/23 ondansetron 4 mg disintegrating 4 mg PO Q6H PRN Nausea 05/18/21 12/21/23 tablet ipratropium bromide 21 mcg (0.03 2 spray intranasal BID PRN Nasal 07/03/21 12/21/23 %) nasal spray Congestion peg 400-propylene glycol 0.4 %-0.3 1 drp ophthalmic (eye) DIRECTED 07/03/21 12/21/23 % eye gel drops (Systane Gel) PRN Dry Eyes tamoxifen 20 mg tablet 20 mg PO DAILY 12/12/21 12/21/23 acetaminophen 650 mg 650 mg PO Q8H PRN Pain 12/21/23 12/21/23 tablet,extended release amlodipine 5 mg tablet 5 mg PO QAM 12/21/23 12/21/23 cetirizine 10 mg tablet (Zyrtec) 10 mg PO DAILY 12/21/23 12/21/23 clindamycin HCl 300 mg capsule 600 mg PO DIRECTED PRN 1 HR 12/21/23 12/21/23 PRIOR TO DENTAL PROCEDURES [id number]-yuhhxlhtb-wlc C-Mn 1 cap PO DAILY 12/21/23 12/21/23 capsule (Glucosamine-Chondroitin Complex capsule) ibuprofen 200 mg tablet 200 mg PO Q6H PRN pain/fever 12/21/23 12/21/23 [id number]-cyotkqek-bzglnu tablet 1 tab PO DAILY 12/21/23 12/21/23 pyridoxine (vitamin B6) 100 mg 100 mg PO DAILY 12/21/23 12/21/23 tablet (Vitamin B-6) vitamin E acetate 134 mg (200 134 mg PO DAILY 12/21/23 12/21/23 unit) capsule Results & Data (ED) Vital Signs Vital Signs - 24 hr 12/21/23 16:10 12/21/23 17:56 12/21/23 19:28 Temperature 36.6 C Temperature Source Temporal Artery Scan Pulse Rate 87 Pulse Rate [Apical] 89 Pulse Rate [Radial] 89 Respiratory Rate 20 18 20 Respiratory Effort / Characteristics Non-Labored Non-Labored Spontaneous Respiratory Depth Normal Normal Normal Blood Pressure 125/88 Blood Pressure [Left Arm] 124/76 136/90 Blood Pressure Mean 100 Blood Pressure Mean [Left Arm] 92 105 Pulse Oximetry 98 98 96 Oxygen Delivery Method Room Air Room Air Room Air Sepsis Recent Fever Within 48 Hours No Sepsis New/Unexplained Change in Mental Status No Sepsis Action Taken by Nursing No Action Required Home Medications Current Medication List: was personally reviewed by me Laboratory Data Attestation: I reviewed the patient's lab results. 12/21/23 17:39 12/21/23 17:39 Lab Results 12/21/23 12/21/23 Range/Units 17:39 18:49 WBC 14.85 H (4.8-10.8) K/ul RBC 4.57 (4.20-5.40) M/uL Hgb 12.6 (12.0-16.0) g/dl Hct 40.1 (37.0-47.0) % MCV 87.7 (80.0-100.0) fL MCH 27.6 (25.0-34.0) pg MCHC 31.4 L (32.0-36.0) g/dL RDW Std Deviation 43.6 (36.4-46.3) fL RDW Coeff of Danette 13.6 (11.5-14.5) % Plt Count 258 (130-400) K/uL MPV 11.3 (9.4-12.4) fL Immature Gran % (Auto) 0.6 % Neut % (Auto) 63.9 % Lymph % (Auto) 14.3 % [place] % (Auto) 11.9 % Eos % (Auto) 7.5 % Baso % (Auto) 1.8 % Neut # (Auto) 9.49 H (1.40-6.50) K/uL Lymph # (Auto) 2.12 (1.20-3.40) K/uL [place] # (Auto) 1.77 H (0.11-0.59) K/uL Eos # (Auto) 1.12 H (0.00-0.50) K/uL Baso # (Auto) 0.26 H (0.00-0.20) K/uL Immature Gran # (Auto) 0.09 (0.01-0.20) K/uL Sodium 132 L (136-145) mmol/L Potassium 4.1 (3.5-5.1) mmol/L Chloride 99 (98-107) mmol/L Carbon Dioxide 25 (21-32) mmol/L Anion Gap 8 (3-11) BUN 17 (6-23) mg/dl Creatinine 0.86 (0.6-1.2) mg/dl Est Cr Clr Drug Dosing 61.0 ml/min Est GFR ( Amer) 74.5 ml/min Est GFR (Non-Af Amer) 64.3 ml/min BUN/Creatinine Ratio 19.8 (10-20) Glucose 91 (70-99(Fasting)) mg/dl Calcium 9.3 (8.6-10.3) mg/dl Total Bilirubin 0.4 (0.2-1.0) mg/dl AST 25 (13-39) U/L ALT 24 (7-52) U/L Alkaline Phosphatase 45 (34-104) U/L Total Protein 6.7 (6.0-8.3) gm/dl Albumin 3.6 (3.4-5.0) gm/dl Globulin 3.1 (2.5-4.0) gm/dl Albumin/Globulin Ratio 1.2 (0.9-2) Lipase 9 L (11-82) U/L Urine Color Yellow Urine Appearance Clear (Clear) Urine pH 6.5 (4.5-7.5) Ur Specific Stella 1.010 (1.000-1.030) Urine Protein Negative (Negative) Urine Glucose (UA) Negative (Negative) Urine Ketones Negative (Negative) Urine Blood 1+ H (Negative) Urine Nitrite Negative (Negative) Urine Bilirubin Negative (Negative) Urine Urobilinogen Negative (Negative) Ur Leukocyte Esterase Negative (Negative) Urine RBC 5-10 H (0-4) /hpf Urine WBC 0-5 (0-5) /hpf Ur Epithelial Cells 0-5 (0-5) /lpf Urine Bacteria Negative (Negative) Administered Medications Meropenem 500 mg/ Syringe 10 mls @ 2 mls/min IV Q8H [facility]; Protocol Stop: 12/23/23 19:59 Last Admin: 12/21/23 20:25 Dose: 2 mls/min Documented By: MED Discontinued Medications Sodium Chloride (Nss) 500 mls @ 999 mls/hr IV .Q31M ONE Stop: 12/21/23 17:04 Last Infusion: 12/21/23 20:20 Dose: Infused Documented By: rules examiner: 12/21/23 17:57 Dose: 999 mls/hr Documented By: MONICA Imaging Data Attestation: I personally reviewed and interpreted this imaging study as follows: My Impression: 1 view chest x-ray was obtained in the emergency department. My interpretation is small pleural effusion, final report below. CT of the abdomen and pelvis was obtained in the emergency department. My interpretation is no free air or definite signs of bowel obstruction, final report below. Radiologist's Impression: Chest X-Ray 12/21/23 16:14 XR chest 1V not portable HISTORY: 78 years-old Female covid positive 2 days ago Q shortness of breath COMPARISON: 10/29/2023 TECHNIQUE: AP view of the chest FINDINGS: Cardiomediastinal and hilar silhouettes are within normal limits. No pneumothorax, large pleural effusion, overt pulmonary edema or lobar airspace consolidation. Blunting of the right lateral costophrenic angle. Right shoulder arthroplasty. Degenerative changes of the spine and left shoulder. IMPRESSION: 1. Blunting of the lateral right costophrenic angle may be secondary to atelectasis versus a trace pleural effusion. 2. No airspace consolidation to suggest pneumonia. ACT 112: Negative or not required by law. The above report was generated using voice recognition software. It may contain grammatical, syntax or spelling errors. Electronically signed by: Keshawn Reilly M.D. 12/21/2023 4:36 PM Abdomen/Pelvis CT 12/21/23 16:[address] WITHOUT CONTRAST CT DOSE: 1312.84 mGy.cm HISTORY: Acute right-sided flank pain right flank pain TECHNIQUE: Multiaxial CT images of the abdomen and pelvis were performed without contrast. A dose lowering technique was utilized adhering to the principles of ALARA. COMPARISON STUDY: PET/CT 10/29/2023, CT abdomen and pelvis 08/25/2023 FINDINGS: Small right pleural effusion. Mild bibasilar atelectasis. No free air. Calcified granulomata of the spleen. Unremarkable pancreas and adrenal glands. Cholelithiasis without CT evidence of acute cholecystitis. Unremarkable liver. Cysts of the right kidney measure up to 2.7 cm. Mild nonspecific bilateral perinephric stranding. No hydronephrosis, renal or ureteral calculi identified. Duplicated collecting systems and ureters on the right. Pelvic floor relaxation. Hysterectomy. Atherosclerosis of the aorta. No new or progressive lymphadenopathy. No bowel obstruction or bowel wall thickening. Colonic diverticulosis. 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 No acute inflammatory changes to suggest acute appendicitis. Unremarkable soft tissues. No acute fracture or destructive bone lesion. IMPRESSION: 1. Small right pleural effusion with mild right basilar atelectasis. 2. No bowel obstruction or bowel wall thickening. 3. Cholelithiasis. 4. No renal or ureteral calculi or hydronephrosis. 5. Additional findings as above. ACT 112: Negative or not required by law. The above report was generated using voice recognition software. It may contain grammatical, syntax or spelling errors. Electronically signed by: Keshawn Reilly M.D. 12/21/2023 7:22 PM Discharge Plan Visit Data Chief Complaint: Urinary Symptoms Stated Complaint: UTI, NOT RESPONDING TO MEDS ED Provider: Td Grey Discharge Problem: Acute flank pain, Acute UTI (urinary tract infection), Pleural effusion on right Forms Stand Alone Forms: [facility] Prescriptions Prescriptions: No Action Systane Gel 0.4-0.3 % drops,gel 1 drp ophthalmic (eye) DIRECTED PRN (Reason: Dry Eyes) tamoxifen 20 mg tablet 20 mg PO DAILY simvastatin [Zocor] 20 mg tablet 20 mg PO QPM ipratropium bromide 21 mcg (0.03 %) spray,non-aerosol 2 spray INTNAS BID PRN (Reason: Nasal Congestion) levothyroxine 75 mcg capsule See Rx Instructions .ROUTE .COMPLEX Rx Instructions: TAKES 75 MCG FRIDAY THROUGH FRIDAY, THEN 150 MCG ON SAT. & SUN. fluticasone propionate 50 mcg/actuation spray,suspension 2 spray intranasal DAILY Rx Instructions: administer into each nostril cholecalciferol (vitamin D3) 50 mcg (2,000 unit) capsule 50 mcg PO QAM betamethasone, augmented 0.05 % cream 1 applic topical BID PRN (Reason: NEEDED TO AFFECTED AREAS) hydrocortisone 2.5 % cream 1 applic topical TID PRN (Reason: NEEDED) losartan 100 mg Tablet 100 mg PO QAM meclizine 25 mg Tablet 25 mg PO TID PRN (Reason: Vertigo) ondansetron 4 mg Tablet,Disintegrating 4 mg PO Q6H PRN (Reason: Nausea) cetirizine [Zyrtec] 10 mg Tablet 10 mg PO DAILY Glucosamine-Chondroitin Complx Capsule 1 cap PO DAILY amlodipine 5 mg tablet 5 mg PO QAM acetaminophen [Tylenol Extended Release] 650 mg Tablet Extended Release 650 mg PO Q8H PRN (Reason: Pain) ibuprofen 200 mg Tablet 200 mg PO Q6H PRN (Reason: pain/fever) pyridoxine (vitamin B6) [Vitamin B-6] 100 mg Tablet 100 mg PO DAILY Centrum Silver Tablet 1 tab PO DAILY vitamin E acetate 134 mg (200 unit) Capsule 134 mg PO DAILY clindamycin HCl 300 mg capsule 600 mg PO DIRECTED PRN (Reason: 1 HR PRIOR TO DENTAL PROCEDURES) Referrals Referrals: Dov Kohler DO [Primary Care Provider] -
[2023-12-21] MEDS: SODIUM CHLORIDE 0.9% 500 ML IV ONE (17:57)
[2023-12-21 17:59] LABS: Basophils # (auto) 0.26 K/uL (0.00-0.20); Basophils % (auto) 1.8 %; Eosinophils # (auto) 1.12 K/uL (0.00-0.50); Eosinophils % (auto) 7.5 %; Hematocrit (blood only) 40.1 % (37.0-47.0); Hemoglobin 12.6 g/dl (12.0-16.0); Immature Granulocytes # (auto) 0.09 K/uL (0.01-0.20); Immature Granulocytes % (auto) 0.6 %; Lymphocytes # (auto) 2.12 K/uL (1.20-3.40); Lymphocytes % (auto) 14.3 %; Mean Corpuscular Hemoglobin 27.6 pg (25.0-34.0); Mean Corpuscular Hgb Conc 31.4 g/dL (32.0-36.0); Mean Corpuscular Volume 87.7 fL (80.0-100.0); Mean Platelet Volume 11.3 fL (9.4-12.4); Monocytes # (auto) 1.77 K/uL (0.11-0.59); Monocytes % (auto) 11.9 %; Neutrophils # (auto) 9.49 K/uL (1.40-6.50); Neutrophils % (auto) 63.9 %; Platelet Count 258 K/uL (130-400); RDW Coefficient of Variation 13.6 % (11.5-14.5); RDW Standard Deviation 43.6 fL (36.4-46.3); Red Blood Count 4.57 M/uL (4.20-5.40); White Blood Count 14.85 K/ul (4.8-10.8)
[2023-12-21 18:13] LABS: Albumin Globulin Ratio 1.2 (0.9-2); Albumin Level 3.6 gm/dl (3.4-5.0); BUN Creatinine Ratio 19.8 (10-20); Bilirubin,Total 0.4 mg/dl (0.2-1.0); Calcium 9.3 mg/dl (8.6-10.3); Est GFR (African American) 74.5 ml/min; Est GFR (Non-African American) 64.3 ml/min; Globulin 3.1 gm/dl (2.5-4.0); Potassium 4.1 mmol/L (3.5-5.1); Total Protein 6.7 gm/dl (6.0-8.3)
[2023-12-21 19:01] LABS: Appearance Urine Clear (Clear); Bilirubin Urine Negative (Negative); Blood Urine 1+ (Negative); Color Urine Yellow; Glucose Urine UA Negative (Negative); Ketones Urine Negative (Negative); Leukocyte Esterase Urine Negative (Negative); Nitrite Urine Negative (Negative); Protein Urine Negative (Negative); Urobilinogen Urine Negative (Negative); pH Urine 6.5 (4.5-7.5)
[2023-12-21 19:12] LABS: Epithelial Cell Urine 0-5 /lpf (0-5)
[2023-12-21 19:14] LABS: Bacteria Urine Negative (Negative); WBC Urine 0-5 /hpf (0-5)
--- NOTE | 2023-12-21 19:24 | CT Scan Report ---
ABDOMEN AND PELVIS CT WITHOUT CONTRAST CT DOSE: 1312.84 mGy.cm HISTORY: Acute right-sided flank pain right flank pain TECHNIQUE: Multiaxial CT images of the abdomen and pelvis were performed without contrast. A dose lo wering technique was utilized adhering to the principles of ALARA. COMPARISON STUDY: PET/CT 10/29/2023, CT abdomen and pelvis 08/25/2023 FINDINGS: Small right pleural effusion. Mild bibasilar atelectasis. No free air. Calcified granulomat a of the spleen. Unremarkable pancreas and adrenal glands. Cholelithiasis without CT evidence of acut e cholecystitis. Unremarkable liver. Cysts of the right kidney measure up to 2.7 cm. Mild nonspecific bilateral perinephric stranding. No hydronephrosis, renal or ureteral calculi identified. Duplicated collecting systems and ureters on th e right. Pelvic floor relaxation. Hysterectomy. Atherosclerosis of the aorta. No new or progressive l ymphadenopathy. No bowel obstruction or bowel wall thickening. Colonic diverticulosis. 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 No acute inflammatory changes to s uggest acute appendicitis. Unremarkable soft tissues. No acute fracture or destructive bone lesion. IMPRESSION: 1. Small right pleural effusion with mild right basilar atelectasis. 2. No bowel obstruction or bowel wall thickening. 3. Cholelithiasis. 4. No renal or ureteral calculi or hydronephrosis. 5. Additional findings as above. ACT 112: Negative or not required by law. The above report was generated using voice recognition software. It may contain grammatical, syntax o r spelling errors. Electronically signed by: Keshawn Reilly M.D. 12/21/2023 7:22 PM
[2023-12-21] MEDS: MEROPENEM 500 MG in SYRINGE 0 ML IV SCH (20:25)
--- NOTE | 2023-12-21 22:17 | History & Physical Report ---
Date of Service December 21, 2023 Assessment & Plan (1) Acute UTI (urinary tract infection): Plan: 78-year-old female with past medical history significant for hyperlipidemia, prediabetes, hyperparathyroidism, allergic rhinitis, hypertension, nonrheumatic mitral regurgitation, nonrheumatic aortic valve stenosis, CKD stage III, recurrent urticaria, history of recurrent UTIs, presents with his ESBL UTI. Patient noticed frequent urination and blood in the urine on December 06, 2023, initially she was prescribed Macrobid as she was not getting better she also had 5 days of Cipro. Cultures are growing ESBL. She was seen in urgent care today still she is having low back pain and frequent urination and was sent in here for IV antibiotics. Denies fevers. She states she was home tested for COVID positive on June 09, 2024. Still has some runny nose and shortness of breath. Denies any headache. Has weakness. No body aches. Appetite is okay. No chest pain. No cough. No sore throat. No nausea. No abdominal pain. No diarrhea or constipation. Resting comfortably and hemodynamically stable. Ambulates with cane.Today in ER covid test came back negative. Acute UTI Cultures growing ESBL Failed outpatient treatment with p.o. antibiotics ER started IV meropenem which will be continued Gentle fluids Close monitor for response Prediabetes Will follow HbA1c levels CKD stage III Present creatinine 0.8 Will follow labs Hyperlipidemia On statin Hypertension On amlodipine and losartan Will monitor Hypothyroidism On Synthyroid History of breast cancer S/p right lumpectomy and radiation Currently on tamoxifen DVT prophylaxis Lovenox Disposition Medical floor Full code History of Present Illness Chief Complaint: ESBL UTI Primary Care Provider: Dov Kohler DO 78-year-old female with past medical history significant for hyperlipidemia, prediabetes, hyperparathyroidism, allergic rhinitis, hypertension, nonrheumatic mitral regurgitation, nonrheumatic aortic valve stenosis, CKD stage III, recurrent urticaria, history of recurrent UTIs, presents with his ESBL UTI. Patient noticed frequent urination and blood in the urine on December 06, 2023, initially she was prescribed Macrobid as she was not getting better she also had 5 days of Cipro. Cultures are growing ESBL. She was seen in urgent care today and still she is having low back pain and frequent urination and was sent in here for IV antibiotics. Denies fevers. She states she was home tested for COVID positive on December 10, 2023. Still has some runny nose and shortness of breath. Denies any headache. Has weakness. No body aches. Appetite is okay. No chest pain. No cough. No sore throat. No nausea. No abdominal pain. No diarrhea or constipation. Resting comfortably and hemodynamically stable. Ambulates with cane. Today in ER covid test came back negative. Past medical history. As mentioned above Past surgical history. Bilateral knee replacement. Colonoscopy. Parathyroidectomy. Injection of lumbosacral spine. Mesenteric cyst removed. Right shoulder reconstruction. Social history. . No smoking. No alcohol use. No drug use. Family history. Sister has diabetes. Father had tachybradycardia syndrome status post pacemaker. Thyroid disorder. Mother had bradycardia s/p pacemaker. Thyroid disorder. Brother has arthritis Allergies Allergy/AdvReac Type Severity Reaction Status Date / Time olive oil Allergy Severe EDEMA Verified 12/21/23 18:37 FACE/LIPS/TONGUE adhesive Allergy Intermediate skin Verified 12/21/23 18:37 irritation cephalexin Allergy Intermediate DIFFUSE Verified 12/21/23 18:37 MACULAR PAPULAR RASH erythromycin base Allergy Intermediate HIVES Verified 12/21/23 18:37 Sulfa (Sulfonamide Allergy Intermediate HIVES Verified 12/21/23 18:37 Antibiotics) latex Allergy Rash Verified 12/22/23 03:29 Home Medications Medication Instructions Recorded Confirmed Type simvastatin 20 mg tablet (Zocor) 20 mg PO QPM 11/01/19 12/21/23 History betamethasone, augmented 0.05 % 1 applic topical BID PRN NEEDED 04/18/21 12/21/23 History topical cream TO AFFECTED AREAS cholecalciferol (vitamin D3) 50 50 mcg PO QAM 04/18/21 12/21/23 History mcg (2,000 unit) capsule fluticasone propionate 50 2 spray intranasal DAILY 04/18/21 12/21/23 History mcg/actuation nasal spray,suspension hydrocortisone 2.5 % topical cream 1 applic topical TID PRN NEEDED 04/18/21 12/21/23 History levothyroxine 75 mcg capsule See Rx Instructions .Route .COMPLEX 04/18/21 12/21/23 History losartan 100 mg tablet 100 mg PO QAM 05/18/21 12/21/23 History meclizine 25 mg tablet 25 mg PO TID PRN Vertigo 05/18/21 12/21/23 History ondansetron 4 mg disintegrating 4 mg PO Q6H PRN Nausea 05/18/21 12/21/23 History tablet ipratropium bromide 21 mcg (0.03 2 spray intranasal BID PRN Nasal 07/03/21 12/21/23 History %) nasal spray Congestion peg 400-propylene glycol 0.4 %-0.3 1 drp ophthalmic (eye) DIRECTED 07/03/21 12/21/23 History % eye gel drops (Systane Gel) PRN Dry Eyes tamoxifen 20 mg tablet 20 mg PO DAILY 12/12/21 12/21/23 History acetaminophen 650 mg 650 mg PO Q8H PRN Pain 12/21/23 12/21/23 History tablet,extended release amlodipine 5 mg tablet 5 mg PO QAM 12/21/23 12/21/23 History cetirizine 10 mg tablet (Zyrtec) 10 mg PO DAILY 12/21/23 12/21/23 History clindamycin HCl 300 mg capsule 600 mg PO DIRECTED PRN 1 HR 12/21/23 12/21/23 History PRIOR TO DENTAL PROCEDURES qfbopvvyjvq-vboszxjnb-rvn C-Mn 1 cap PO DAILY 12/21/23 12/21/23 History capsule (Glucosamine-Chondroitin Complex capsule) ibuprofen 200 mg tablet 200 mg PO Q6H PRN pain/fever 12/21/23 12/21/23 History nmpintmfkuge-obonhfoc-ndvhrg tablet 1 tab PO DAILY 12/21/23 12/21/23 History pyridoxine (vitamin B6) 100 mg 100 mg PO DAILY 12/21/23 12/21/23 History tablet (Vitamin B-6) vitamin E acetate 134 mg (200 134 mg PO DAILY 12/21/23 12/21/23 History unit) capsule Past Med/Surg History Medical History Mild aortic stenosis Per 11/15/20 ECHO= ARLENE =1.2-1.4 cm; AV mean gradient = 7.3 mmHg; AV max velocity 1.927 m/s Follows with [facility] cardio DDD (degenerative disc disease) Overactive bladder Hypothyroidism Breast cancer, right Dx 03/2021 Borderline glaucoma Vertigo Sciatica Prediabetes Hypertensive left ventricular hypertrophy, without heart failure Non-rheumatic mitral regurgitation Allergic rhinitis Obesity Hyperlipidemia CKD (chronic kidney disease), stage III 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 Helton 05/28/2021 History of hysterectomy History of breast biopsy History of cataract surgery Bilateral History of reverse total replacement of right shoulder joint (~12/2019) Hx of colonoscopy Hx of abdominal surgery MESENTERIC CYST REMOVED S/P knee replacement RIGHT AND LEFT H/O: hysterectomy Family History Sister Breast cancer Mother Breast cancer Pt believes this to be true Pacemaker Grandmother (Maternal) Breast cancer Father , 91yo Pacemaker Osteomyelitis Stroke CHF (congestive heart failure) Sister Diabetes Sister Stroke Hypertension Diabetes Sister Diabetes Daughter No problems noted. 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 Head- atraumatic Eyes- EOMI Neck- supple, no JVD. Lungs- clear to auscultation no wheezing or crackles. Heart- regular rhythm; no murmur, no gallop. Abdomen- normal bowel sounds, soft, nontender, no distension Extremities- no pretibial edema, no erythema seen Neuro- alert, oriented x 3; EOMI; no facial palsy; no dysarthria; moves extremities. Skin- warm & dry Results & Data Results & Data Vital Signs (Past 12 Hours) Vital Signs Temp Pulse Pulse Pulse Resp BP BP 12/21/23 19:28 89 20 136/90 12/21/23 17:56 89 18 124/76 12/21/23 16:10 36.6 C 87 20 125/88 Pulse Ox O2 Del Method 12/21/23 19:28 96 Room Air 12/21/23 17:56 98 Room Air 12/21/23 16:10 98 Room Air Diagnostic Findings Laboratory Results WBC 14.85 K/ul (4.8-10.8) H 12/21/23 17:39 RBC 4.57 M/uL (4.20-5.40) 12/21/23 17:39 Hgb 12.6 g/dl (12.0-16.0) 12/21/23 17:39 Hct 40.1 % (37.0-47.0) 12/21/23 17:39 MCV 87.7 fL (80.0-100.0) 12/21/23 17:39 MCH 27.6 pg (25.0-34.0) 12/21/23 17:39 MCHC 31.4 g/dL (32.0-36.0) L 12/21/23 17:39 RDW Std Deviation 43.6 fL (36.4-46.3) 12/21/23 17:39 RDW Coeff of Danette 13.6 % (11.5-14.5) 12/21/23 17:39 Plt Count 258 K/uL (130-400) 12/21/23 17:39 MPV 11.3 fL (9.4-12.4) 12/21/23 17:39 Immature Gran % (Auto) 0.6 % 12/21/23 17:39 Neut % (Auto) 63.9 % 12/21/23 17:39 Lymph % (Auto) 14.3 % 12/21/23 17:39 [place] % (Auto) 11.9 % 12/21/23 17:39 Eos % (Auto) 7.5 % 12/21/23 17:39 Baso % (Auto) 1.8 % 12/21/23 17:39 Neut # (Auto) 9.49 K/uL (1.40-6.50) H 12/21/23 17:39 Lymph # (Auto) 2.12 K/uL (1.20-3.40) 12/21/23 17:39 [place] # (Auto) 1.77 K/uL (0.11-0.59) H 12/21/23 17:39 Eos # (Auto) 1.12 K/uL (0.00-0.50) H 12/21/23 17:39 Baso # (Auto) 0.26 K/uL (0.00-0.20) H 12/21/23 17:39 Immature Gran # (Auto) 0.09 K/uL (0.01-0.20) 12/21/23 17:39 Sodium 132 mmol/L (136-145) L 12/21/23 17:39 Potassium 4.1 mmol/L (3.5-5.1) 12/21/23 17:39 Chloride 99 mmol/L (98-107) 12/21/23 17:39 Carbon Dioxide 25 mmol/L (21-32) 12/21/23 17:39 Anion Gap 8 (3-11) 12/21/23 17:39 BUN 17 mg/dl (6-23) 12/21/23 17:39 Creatinine 0.86 mg/dl (0.6-1.2) 12/21/23 17:39 Est Cr Clr Drug Dosing 61.0 ml/min 12/21/23 17:39 Est GFR ( Amer) 74.5 ml/min 12/21/23 17:39 Est GFR (Non-Af Amer) 64.3 ml/min 12/21/23 17:39 BUN/Creatinine Ratio 19.8 (10-20) 12/21/23 17:39 Glucose 91 mg/dl (70-99(Fasting)) 12/21/23 17:39 Calcium 9.3 mg/dl (8.6-10.3) 12/21/23 17:39 Total Bilirubin 0.4 mg/dl (0.2-1.0) 12/21/23 17:39 AST 25 U/L (13-39) 12/21/23 17:39 ALT 24 U/L (7-52) 12/21/23 17:39 Alkaline Phosphatase 45 U/L (34-104) 12/21/23 17:39 Total Protein 6.7 gm/dl (6.0-8.3) 12/21/23 17:39 Albumin 3.6 gm/dl (3.4-5.0) 12/21/23 17:39 Globulin 3.1 gm/dl (2.5-4.0) 12/21/23 17:39 Albumin/Globulin Ratio 1.2 (0.9-2) 12/21/23 17:39 Lipase 9 U/L (11-82) L 12/21/23 17:39 Urine Color Yellow 12/21/23 18:49 Urine Appearance Clear (Clear) 12/21/23 18:49 Urine pH 6.5 (4.5-7.5) 12/21/23 18:49 Ur Specific [place] 1.010 (1.000-1.030) 12/21/23 18:49 Urine Protein Negative (Negative) 12/21/23 18:49 Urine Glucose (UA) Negative (Negative) 12/21/23 18:49 Urine Ketones Negative (Negative) 12/21/23 18:49 Urine Blood 1+ (Negative) H 12/21/23 18:49 Urine Nitrite Negative (Negative) 12/21/23 18:49 Urine Bilirubin Negative (Negative) 12/21/23 18:49 Urine Urobilinogen Negative (Negative) 12/21/23 18:49 Ur Leukocyte Esterase Negative (Negative) 12/21/23 18:49 Urine RBC 5-10 /hpf (0-4) H 12/21/23 18:49 Urine WBC 0-5 /hpf (0-5) 12/21/23 18:49 Ur Epithelial Cells 0-5 /lpf (0-5) 12/21/23 18:49 Urine Bacteria Negative (Negative) 12/21/23 18:49 Impressions Chest X-Ray 12/21/23 16:14 XR chest 1V not portable HISTORY: 78 years-old Female covid positive 2 days ago Q shortness of breath COMPARISON: 10/29/2023 TECHNIQUE: AP view of the chest FINDINGS: Cardiomediastinal and hilar silhouettes are within normal limits. No pneumothorax, large pleural effusion, overt pulmonary edema or lobar airspace consolidation. Blunting of the right lateral costophrenic angle. Right shoulder arthroplasty. Degenerative changes of the spine and left shoulder. IMPRESSION: 1. Blunting of the lateral right costophrenic angle may be secondary to atelectasis versus a trace pleural effusion. 2. No airspace consolidation to suggest pneumonia. ACT 112: Negative or not required by law. The above report was generated using voice recognition software. It may contain grammatical, syntax or spelling errors. Electronically signed by: Keshawn Reilly M.D. 12/21/2023 4:36 PM Abdomen/Pelvis CT 12/21/23 16:[address] WITHOUT CONTRAST CT DOSE: 1312.84 mGy.cm HISTORY: Acute right-sided flank pain right flank pain TECHNIQUE: Multiaxial CT images of the abdomen and pelvis were performed without contrast. A dose lowering technique was utilized adhering to the principles of ALARA. COMPARISON STUDY: PET/CT 10/29/2023, CT abdomen and pelvis 08/25/2023 FINDINGS: Small right pleural effusion. Mild bibasilar atelectasis. No free air. Calcified granulomata of the spleen. Unremarkable pancreas and adrenal glands. Cholelithiasis without CT evidence of acute cholecystitis. Unremarkable liver. Cysts of the right kidney measure up to 2.7 cm. Mild nonspecific bilateral perinephric stranding. No hydronephrosis, renal or ureteral calculi identified. Duplicated collecting systems and ureters on the right. Pelvic floor relaxation. Hysterectomy. Atherosclerosis of the aorta. No new or progressive lymphadenopathy. No bowel obstruction or bowel wall thickening. Colonic diverticulosis. 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 No acute inflammatory changes to suggest acute appendicitis. Unremarkable soft tissues. No acute fracture or destructive bone lesion. IMPRESSION: 1. Small right pleural effusion with mild right basilar atelectasis. 2. No bowel obstruction or bowel wall thickening. 3. Cholelithiasis. 4. No renal or ureteral calculi or hydronephrosis. 5. Additional findings as above. ACT 112: Negative or not required by law. The above report was generated using voice recognition software. It may contain grammatical, syntax or spelling errors. Electronically signed by: Keshawn Reilly M.D. 12/21/2023 7:22 PM Code Status & VTE Plan VTE Prophylaxis Plan VTE Prophylaxis will be ordered: Yes
[2023-12-21 22:24] LABS: Influenza A virus by PCR Negative (Neg); Influenza B virus by PCR Negative (Neg); RSV by PCR Negative (Neg); SARS CoV2 RNA(COVID-19) Ceph NEGATIVE (Negative)
[2023-12-22] MEDS ORDERED: BETAMETHASONE DIP AUG (DIPROLENE) 0.05% CR 50 GM TUBE EXT PRN (00:39)
[2023-12-22] MEDS ORDERED: MECLIZINE HCL 25 MG TAB PO PRN (00:39)
[2023-12-22] MEDS ORDERED: ARTIFICIAL TEARS OP PRN (01:17)
[2023-12-22] MEDS ORDERED: IPRATROPIUM BROMIDE NASAL SPRAY 0.06% 15ML NAE PRN (01:18)
[2023-12-22] MEDS: SODIUM CHLORIDE 0.9% 1,000 ML IV SCH (01:21)
[2023-12-22] MEDS: ACETAMINOPHEN 325 MG TAB PO PRN (02:26)
[2023-12-22] MEDS: LEVOTHYROXINE SODIUM 75 MCG TABLET PO SCH (06:21)
[2023-12-22 06:28] LABS: Basophils # (auto) 0.22 K/uL (0.00-0.20); Basophils % (auto) 1.7 %; Eosinophils # (auto) 1.11 K/uL (0.00-0.50); Eosinophils % (auto) 8.7 %; Hematocrit (blood only) 33.7 % (37.0-47.0); Hemoglobin 10.9 g/dl (12.0-16.0); Immature Granulocytes # (auto) 0.06 K/uL (0.01-0.20); Immature Granulocytes % (auto) 0.5 %; Lymphocytes # (auto) 1.88 K/uL (1.20-3.40); Lymphocytes % (auto) 14.7 %; Mean Corpuscular Hemoglobin 28.2 pg (25.0-34.0); Mean Corpuscular Hgb Conc 32.3 g/dL (32.0-36.0); Mean Corpuscular Volume 87.3 fL (80.0-100.0); Mean Platelet Volume 11.3 fL (9.4-12.4); Monocytes # (auto) 1.62 K/uL (0.11-0.59); Monocytes % (auto) 12.7 %; Neutrophils # (auto) 7.88 K/uL (1.40-6.50); Neutrophils % (auto) 61.7 %; Platelet Count 227 K/uL (130-400); RDW Coefficient of Variation 13.6 % (11.5-14.5); RDW Standard Deviation 42.8 fL (36.4-46.3); Red Blood Count 3.86 M/uL (4.20-5.40); White Blood Count 12.77 K/ul (4.8-10.8)
[2023-12-22 06:42] LABS: BUN Creatinine Ratio 18.8 (10-20); Calcium 8.3 mg/dl (8.6-10.3); Creatinine Clr Calc Pharmacy 65.2 ml/min; Est GFR (African American) 81.3 ml/min; Est GFR (Non-African American) 70.1 ml/min; Magnesium 1.8 mg/dl (1.7-2.4); Potassium 4.2 mmol/L (3.5-5.1)
[2023-12-22] MEDS: amLODIPine BESYLATE 5 MG TAB PO SCH (08:10)
[2023-12-22] MEDS: CETIRIZINE HCL 10 MG TABLET PO SCH (08:10)
[2023-12-22] MEDS: CHOLECALCIFEROL 25 MCG (1000 UNITS) TAB PO SCH (08:10)
[2023-12-22] MEDS: ENOXAPARIN INJ 40 MG/0.4 ML SYR SQ SCH (08:11)
[2023-12-22] MEDS: FLUTICASONE PROPIONATE NA SPR 16 GM BTL NAE SCH (08:11)
[2023-12-22] MEDS: LOSARTAN POTASSIUM 50 MG TAB PO SCH (08:12)
[2023-12-22] MEDS: CEROVITE ADV FORMULA TAB PO SCH (08:13)
[2023-12-22] MEDS: PYRIDOXINE HCL 50 MG TAB PO SCH (08:13)
[2023-12-22] MEDS: TAMOXIFEN CITRATE 10 MG TABLET PO SCH (08:13)
[2023-12-22] MEDS: ERTAPENEM SODIUM 1,000 MG in SYRINGE 0 ML IV SCH (12:51)
--- NOTE | 2023-12-22 17:52 | Hospitalist Progress Note ---
Date of Service December 22, 2023 Assessment & Plan (1) Acute UTI (urinary tract infection): Plan: Patient is a 78 yr female with H/O Hyperlipidemia, prediabetes, hyperparathyroidism, allergic rhinitis, hypertension, nonrheumatic mitral regurgitation, nonrheumatic aortic valve stenosis, CKD stage III, recurrent urticaria, history of recurrent UTIs, presents with his ESBL UTI. Patient noticed frequent urination and blood in the urine on December 06, 2023, initially she was prescribed Macrobid as she was not getting better she also had 5 days of Cipro. Cultures are growing ESBL. She was seen in urgent care today still she is having low back pain and frequent urination and was sent in here for IV antibiotics. Denies fevers. She states she was home tested for COVID positive on June 09, 2024. Still has some runny nose and shortness of breath. Denies any headache. Has weakness. No body aches. Appetite is okay. No chest pain. No cough. No sore throat. No nausea. No abdominal pain. No diarrhea or constipation. Resting comfortably and hemodynamically stable. Ambulates with cane. Acute UTI/pyelonephritis Urine Cultures growing ESBL Failed outpatient treatment with p.o. antibiotics --CT ABD:Small right pleural effusion with mild right basilar atelectasis. No bowel obstruction or bowel wall thickening. Cholelithiasis. No renal or ureteral calculi or hydronephrosis. --ER started IV meropenem>> transition to ertapenem Received gentle IV fluids Plan to complete 7-day course of antibiotics Cholelithiasis Incidental finding on CT Follow-up as outpatient Atelectasis H/O COVID Incentive spirometry Prediabetes HbA1c 5.6 CKD stage III Creatinine at baseline Monitor renal function Hyperlipidemia Continue statin Hypertension Continue amlodipine, losartan Elevated Hypothyroidism Continue levothyroxine H/O Breast cancer S/p right lumpectomy and radiation Currently on tamoxifen Obesity BMI 35 DVT Px: Lovenox SQ CODE STATUS Full code Admission and Anticipated Discharge Date Admission Date: December 21, 2023 Subjective Patient is seen and examined at bedside States having right flank pain Denies any chest pain, dizziness, nausea, vomiting Reports chronic dyspnea No other complaints Review of Systems Review of Systems: All systems reviewed & are unremarkable except as noted in Subjective Physical Exam Physical Exam: Physical Exam: Vitals signs as noted above General Appearance:Obese, no apparent distress Head: normocephalic, Atraumatic Eyes: normal inspection, EOMI Neck: supple, Trachea midline Respiratory/Chest: Normal breath sounds, CTA, No accessory muscle use Cardiovascular: S1, S2, + murmur Abdomen/GI:Soft, right flank tender, Bowel sounds present Extremities/Musculoskeletal:normal inspection, no edema Neurologic/Psych:AAOX3, grossly no focal neurological deficits Skin: normal color, warm Results & Data Results & Data Vital Signs (Past 12 Hours) Vital Signs Temp Pulse Resp BP Pulse Ox O2 Del Method 12/22/23 12:01 36.7 C 84 15 132/78 96 Room Air 12/22/23 07:36 36.6 C 80 16 134/78 95 Room Air Laboratory Results Short CBC 12/21/23 12/22/23 Range/Units 17:39 05:44 WBC 14.85 H 12.77 H (4.8-10.8) K/ul Hgb 12.6 10.9 L (12.0-16.0) g/dl Hct 40.1 33.7 L (37.0-47.0) % Plt Count 258 227 (130-400) K/uL BMP 12/21/23 12/22/23 17:39 05:44 Sodium 132 L 137 Potassium 4.1 4.2 Chloride 99 104 Carbon Dioxide 25 27 BUN 17 15 Creatinine 0.86 0.80 Glucose 91 103 H Calcium 9.3 8.3 L Liver Function 12/21/23 Range/Units 17:39 Total Bilirubin 0.4 (0.2-1.0) mg/dl AST 25 (13-39) U/L ALT 24 (7-52) U/L Alkaline Phosphatase 45 (34-104) U/L Albumin 3.6 (3.4-5.0) gm/dl Urine 12/21/23 Range/Units 18:49 Urine Color Yellow Urine Appearance Clear (Clear) Urine pH 6.5 (4.5-7.5) Ur Specific [place] 1.010 (1.000-1.030) Urine Protein Negative (Negative) Urine Glucose (UA) Negative (Negative)
[2023-12-22] MEDS: SIMVASTATIN 20 MG TAB PO SCH (19:53)
[2023-12-22] MEDS: BENZONATATE 100 MG CAPSULE PO PRN (20:41)
[2023-12-23 06:45] LABS: Hematocrit (blood only) 38.1 % (37.0-47.0); Hemoglobin 11.9 g/dl (12.0-16.0); Mean Corpuscular Hemoglobin 27.7 pg (25.0-34.0); Mean Corpuscular Hgb Conc 31.2 g/dL (32.0-36.0); Mean Corpuscular Volume 88.6 fL (80.0-100.0); Mean Platelet Volume 11.3 fL (9.4-12.4); Platelet Count 245 K/uL (130-400); RDW Coefficient of Variation 13.7 % (11.5-14.5); RDW Standard Deviation 44.6 fL (36.4-46.3); White Blood Count 13.31 K/ul (4.8-10.8)
[2023-12-23 07:09] LABS: BUN Creatinine Ratio 14.6 (10-20); Calcium 8.7 mg/dl (8.6-10.3); Creatinine Clr Calc Pharmacy 63.6 ml/min; Est GFR (African American) 78.9 ml/min; Est GFR (Non-African American) 68.1 ml/min; Potassium 3.9 mmol/L (3.5-5.1)
--- NOTE | 2023-12-23 17:15 | Hospitalist Progress Note ---
Date of Service December 23, 2023 Assessment & Plan (1) Acute UTI (urinary tract infection): Plan: Patient is a 78 yr female with H/O Hyperlipidemia, prediabetes, hyperparathyroidism, allergic rhinitis, hypertension, nonrheumatic mitral regurgitation, nonrheumatic aortic valve stenosis, CKD stage III, recurrent urticaria, history of recurrent UTIs, presents with his ESBL UTI. Patient noticed frequent urination and blood in the urine on December 06, 2023, initially she was prescribed Macrobid as she was not getting better she also had 5 days of Cipro. Cultures are growing ESBL. She was seen in urgent care today still she is having low back pain and frequent urination and was sent in here for IV antibiotics. Denies fevers. She states she was home tested for COVID positive on June 09, 2024. Still has some runny nose and shortness of breath. Denies any headache. Has weakness. No body aches. Appetite is okay. No chest pain. No cough. No sore throat. No nausea. No abdominal pain. No diarrhea or constipation. Resting comfortably and hemodynamically stable. Ambulates with cane. Acute UTI/pyelonephritis Outpatient urine Cultures growing ESBL on 12/06/23 Failed outpatient treatment with p.o. antibiotics --Blood, urine culture pending --CT ABD:Small right pleural effusion with mild right basilar atelectasis. No bowel obstruction or bowel wall thickening. Cholelithiasis. No renal or ureteral calculi or hydronephrosis. --ER started IV meropenem>> transition to ertapenem Day #2 Received gentle IV fluids Plan to complete 7-day course of antibiotics Cultures likely unreliable given antibiotic treatment prior to obtaining cultures PT/OT prior to discharge Cholelithiasis Incidental finding on CT Follow-up as outpatient Atelectasis H/O COVID Continue Incentive spirometry Respiratory status seem to be at baseline Prediabetes HbA1c 5.6 CKD stage III Creatinine at baseline Monitor renal function Hyperlipidemia Continue statin Hypertension Continue amlodipine, losartan Elevated Hypothyroidism Continue levothyroxine H/O Breast cancer S/p right lumpectomy and radiation Currently on tamoxifen Obesity BMI 35 DVT Px: Lovenox SQ CODE STATUS Full code Disposition PT OT prior to discharge Admission and Anticipated Discharge Date Admission Date: December 21, 2023 Subjective Patient is seen and examined at bedside Right flank pain better today Offers no other new complaints Persistent leukocytosis Denies any chest pain, dizziness, nausea, vomiting Reports chronic dyspnea Discussed with patient's family at bedside Review of Systems Review of Systems: All systems reviewed & are unremarkable except as noted in Subjective Physical Exam Physical Exam: Physical Exam: Vitals signs as noted above General Appearance:Obese, no apparent distress Head: normocephalic, Atraumatic Eyes: normal inspection, EOMI Neck: supple, Trachea midline Respiratory/Chest: Normal breath sounds, CTA, No accessory muscle use Cardiovascular: S1, S2, + murmur Abdomen/GI:Soft, right flank mild tender, Bowel sounds present Extremities/Musculoskeletal:normal inspection, no edema Neurologic/Psych:AAOX3, grossly no focal neurological deficits Skin: normal color, warm Results & Data Results & Data Vital Signs (Past 12 Hours) Vital Signs Temp Pulse Resp BP Pulse Ox O2 Del Method 12/23/23 16:53 37.4 C 12/23/23 15:08 36.9 C 90 18 144/79 H 94 Room Air 12/23/23 07:55 Room Air 12/23/23 07:18 36.8 C 90 18 135/74 93 Room Air Laboratory Results Short CBC 12/23/23 Range/Units 06:11 WBC 13.31 H (4.8-10.8) K/ul Hgb 11.9 L (12.0-16.0) g/dl Hct 38.1 (37.0-47.0) % Plt Count 245 (130-400) K/uL BMP 12/23/23 06:11 Sodium 137 Potassium 3.9 Chloride 102 Carbon Dioxide 29 BUN 12 Creatinine 0.82 Glucose 108 H Calcium 8.7
[2023-12-23] MEDS: COUGH DROP (SUGAR FREE) LOZ 24 LOZ/1 BOX BUCCAL ONE (20:13)
[2023-12-24] MEDS: traMADol HCL 50 MG TABLET PO PRN (03:24)
[2023-12-24 07:07] LABS: Hematocrit (blood only) 36.2 % (37.0-47.0); Hemoglobin 11.5 g/dl (12.0-16.0); Mean Corpuscular Hemoglobin 27.8 pg (25.0-34.0); Mean Corpuscular Hgb Conc 31.8 g/dL (32.0-36.0); Mean Corpuscular Volume 87.7 fL (80.0-100.0); Mean Platelet Volume 11.4 fL (9.4-12.4); Platelet Count 256 K/uL (130-400); RDW Coefficient of Variation 13.6 % (11.5-14.5); RDW Standard Deviation 43.7 fL (36.4-46.3); Red Blood Count 4.13 M/uL (4.20-5.40); White Blood Count 14.03 K/ul (4.8-10.8)
[2023-12-24 07:22] LABS: BUN Creatinine Ratio 17.8 (10-20); Calcium 8.6 mg/dl (8.6-10.3); Creatinine Clr Calc Pharmacy 71.5 ml/min; Est GFR (African American) 90.8 ml/min; Est GFR (Non-African American) 78.3 ml/min; Potassium 4.2 mmol/L (3.5-5.1)
[2023-12-24] MEDS: oxyCODONE HCL IR 5 MG TAB (IMMEDIATE RELEASE) PO STA ×2 (12:30→23:19)
--- NOTE | 2023-12-24 17:54 | Hospitalist Progress Note ---
Date of Service December 24, 2023 Assessment & Plan (1) Acute UTI (urinary tract infection): Plan: Patient is a 78 yr female with H/O Hyperlipidemia, prediabetes, hyperparathyroidism, allergic rhinitis, hypertension, nonrheumatic mitral regurgitation, nonrheumatic aortic valve stenosis, CKD stage III, recurrent urticaria, history of recurrent UTIs, presents with his ESBL UTI. Patient noticed frequent urination and blood in the urine on December 06, 2023, initially she was prescribed Macrobid as she was not getting better she also had 5 days of Cipro. Cultures are growing ESBL. She was seen in urgent care today still she is having low back pain and frequent urination and was sent in here for IV antibiotics. Denies fevers. She states she was home tested for COVID positive on June 09, 2024. Still has some runny nose and shortness of breath. Denies any headache. Has weakness. No body aches. Appetite is okay. No chest pain. No cough. No sore throat. No nausea. No abdominal pain. No diarrhea or constipation. Resting comfortably and hemodynamically stable. Ambulates with cane. Acute UTI/pyelonephritis Outpatient urine Cultures growing ESBL on 12/06/23 Failed outpatient treatment with p.o. antibiotics --Blood, urine culture pending --CT ABD:Small right pleural effusion with mild right basilar atelectasis. No bowel obstruction or bowel wall thickening. Cholelithiasis. No renal or ureteral calculi or hydronephrosis. --ER started IV meropenem>> transition to ertapenem Day #2 Received gentle IV fluids Plan to complete 7-day course of antibiotics Cultures likely unreliable given antibiotic treatment prior to obtaining cultures PT/OT prior to discharge Cholelithiasis Incidental finding on CT Follow-up as outpatient Atelectasis H/O COVID Continue Incentive spirometry Respiratory status seem to be at baseline Prediabetes HbA1c 5.6 CKD stage III Creatinine at baseline Monitor renal function Hyperlipidemia Continue statin Hypertension Continue amlodipine, losartan Elevated Hypothyroidism Continue levothyroxine H/O Breast cancer S/p right lumpectomy and radiation Currently on tamoxifen Obesity BMI 35 DVT Px: Lovenox SQ CODE STATUS Full code Disposition PT OT prior to discharge Admission and Anticipated Discharge Date Admission Date: December 21, 2023 Subjective Patient is seen and examined at bedside Right belly pain present today, not much relieved w/ pain meds, no nausea and vomiting, was comfortably sleeping by the day, will follow. Offers no other new complaints Persistent leukocytosis Denies any chest pain, dizziness, nausea, vomiting Discussed with patient's family at bedside Physical Exam Physical Exam: General Appearance:Obese, no apparent distress Head: normocephalic, Atraumatic Eyes: normal inspection, EOMI Neck: supple, Trachea midline Respiratory/Chest: Normal breath sounds, CTA, No accessory muscle use Cardiovascular: S1, S2, + murmur Abdomen/GI:Soft, right flank mild tender, Bowel sounds present Extremities/Musculoskeletal:normal inspection, no edema Neurologic/Psych:AAOX3, grossly no focal neurological deficits Skin: normal color, warm Results & Data Results & Data Vital Signs (Past 12 Hours) Vital Signs Temp Pulse Resp BP Pulse Ox O2 Del Method 12/24/23 15:10 37.0 C 83 16 126/78 92 Room Air 12/24/23 14:11 Room Air 12/24/23 07:11 36.8 C 90 16 144/85 H 92 Room Air
[2023-12-24] MEDS ORDERED: oxyCODONE HCL IR 5 MG TAB (IMMEDIATE RELEASE) PO PRN (20:52)
[2023-12-24] MEDS ORDERED: MoRPHine SULFATE 4 MG/ML 1 ML CARP\\VIAL IV PRN (20:52)
--- NOTE | 2023-12-24 22:51 | Communication Note ---
Date of Service: December 24, 2023 Patient with substernal pain unresponsive to nitroglycerin. EKG as per my interpretation : Rate 100, LAD, LAFB, no ischemia AP Atypical chest pain rule out PE CT chest PE study
[2023-12-24] MEDS: NITROGLYCERIN SL 0.4 MG/TAB TAB SL STA (22:53)
[2023-12-24] MEDS: MAGNESIUM SULFATE / D5W 1 GM/100 ML BAG IV ONE (22:58)
[2023-12-24] MEDS: ACETAMINOPHEN 325 MG TAB PO STA (22:58)
[2023-12-24] MEDS: IPRATROPIUM BROMIDE NEB SOLN 0.02% 0.5MG/2.5ML VIAL INH STA (23:08)
[2023-12-24] MEDS: LEVALBUTEROL 1.25MG/0.5ML NEB INH STA (23:09)
[2023-12-24] MEDS: LEVALBUTEROL HCL 0.63 MG/3 ML NEB ONE (23:09)
[2023-12-24] MEDS: cloNIDine HCL 0.1 MG TAB PO ONE (23:15)
[2023-12-24 23:35] LABS: Base Excess ABG 4.4 mEq/L (-9-1.8); HCO3 ABG 29 mmol/L (19-24); Oxygen Saturation ABG 98.6 % (90-95); PCO2 ABG 43 mmHg (35-46); PO2 ABG 86 mmHg (80-95); pH ABG 7.44 (7.35-7.45)
[2023-12-24 23:36] LABS: Magnesium 1.7 mg/dl (1.7-2.4)
[2023-12-24 23:42] LABS: Allen Test Pos (Pos)
[2023-12-24 23:43] LABS: Troponin I High Sensitivity 7.6 pg/ml (0-14)
[2023-12-24 23:49] LABS: Partial Thromboplastin Ratio 0.9; Partial Thromboplastin Time 26 Seconds (21-31)
[2023-12-25] MEDS: FUROSEMIDE INJ 20 MG/2 ML VIAL IV ONE ×2 (00:06→09:36)
[2023-12-25] MEDS: OPTIRAY 320 125ml IV ONE (00:51)
--- NOTE | 2023-12-25 01:11 | CT Scan Report ---
Exam(s): CTA CHEST IV Amt: 116 ML OPTIRAY 320 EXAM: CT Angiography Chest With Intravenous Contrast CLINICAL HISTORY: Reason for exam: cp. TECHNIQUE: Axial computed tomographic angiography images of the chest with intravenous contrast. CTDI is 27.99 mGy and DLP is 0 mGy-cm. Automated exposure control was utilized for the study. A dose lowering technique was utilized adhering to the principles of ALARA. MIP reconstructed images were created and reviewed. COMPARISON: None. FINDINGS: Pulmonary arteries: Unremarkable. Normal enhancement of the pulmonary arteries with no filling defect to suggest pulmonary embolus. Aorta: Atherosclerotic disease throughout the aorta with no aneurysm or dissection. Lungs: Small nodule within the anterolateral aspect of the right middle lobe, image 50, series 3 measuring 4 mm. Bilateral lower lobe, right upper lobe and right middle lobe atelectasis. Mild subpleural scarring versus atelectasis versus interstitial changes/early fibrosis in the right middle lobe and right upper lobe. Pleural space: Moderate right-sided pleural effusion. Areas of mild pleural thickening along the right mid upper pleura versus pleural plaques. No pneumothorax. Heart: Unremarkable. No cardiomegaly. No significant pericardial effusion. No evidence of RV dysfunction. Normal cardiac size with coronary artery calcifications. Mediastinum: There is mild fullness of the mediastinal lymph nodes with a large node in the pretracheal region revealing calcifications measuring 2.6 x 1.8 cm. These findings may indicate sequela of previous granulomatous infection although reactive acute inflammatory process versus metastatic disease not excluded. Bones/joints: No acute fracture. No dislocation. Soft tissues: Question postoperative changes of the right breast with density on image 65, series 4 measuring approximately 1.6 x 1.5 cm. Lymph nodes: There is mild fullness of the left axillary lymph nodes, one revealing calcification and measuring 1.6 x 1.5 cm, indeterminate. Spleen: Upper abdomen reveals splenic granulomata, sequela of previous granulomatous infection. Remainder of the visualized upper abdominal structures are unremarkable. Other findings: Multilevel degenerative disease of the spine with right-sided humeral prosthesis in place. Degenerative disease of the left shoulder. IMPRESSION: 1. No pulmonary embolus or aortic dissection. 2. Question postoperative changes of the right breast with questionable density measuring 1.6 x 0.5 cm, correlation with mammography recommended. 3. Moderate right-sided pleural effusion with bilateral lower lobe atelectasis, right more than left. Mild right mid upper lung pleural thickening. 4. Mild subpleural scarring versus atelectasis versus interstitial changes/early fibrosis in the right middle lobe and right upper lobe. 5. Tiny nodule measuring 4 mm within the right middle lobe. Depending on risk factors, recommend follow-up CT chest in 6-12 months to document stability unless prior films are made available for comparison. 6. Left axillary and mediastinal lymphadenopathy which could represent inflammatory response although neoplasm or sequela of previous granulomatous infection given age, calcifications in some of the nodule not excluded. Clinical correlation recommended and comparison to prior CT exam if made available recommended. Electronically signed by: Aleshia Payne MD 12/25/23 01:10 AM
[2023-12-25] MEDS: MAGNESIUM SULFATE / D5W 1 GM/100 ML BAG IV ONE (01:20)
[2023-12-25 04:57] LABS: Influenza A virus by PCR Negative (Neg); Influenza B virus by PCR Negative (Neg); RSV by PCR Negative (Neg); SARS CoV2 RNA(COVID-19) Ceph NEGATIVE (Negative)
[2023-12-25 06:57] LABS: Hematocrit (blood only) 35.4 % (37.0-47.0); Hemoglobin 10.9 g/dl (12.0-16.0); Mean Corpuscular Hemoglobin 27.4 pg (25.0-34.0); Mean Corpuscular Hgb Conc 30.8 g/dL (32.0-36.0); Mean Corpuscular Volume 88.9 fL (80.0-100.0); Mean Platelet Volume 11.7 fL (9.4-12.4); Platelet Count 240 K/uL (130-400); RDW Coefficient of Variation 13.5 % (11.5-14.5); Red Blood Count 3.98 M/uL (4.20-5.40); White Blood Count 12.71 K/ul (4.8-10.8)
[2023-12-25 07:07] LABS: BUN Creatinine Ratio 16.9 (10-20); Calcium 8.7 mg/dl (8.6-10.3); Creatinine Clr Calc Pharmacy 62.9 ml/min; Est GFR (African American) 77.7 ml/min; Est GFR (Non-African American) 67.1 ml/min; Potassium 4.3 mmol/L (3.5-5.1)
--- NOTE | 2023-12-25 07:50 | XRay Report ---
XR chest 1V portable HISTORY: 78 years-old Female sob acute Shortness of breath COMPARISON: CTA chest 12/25/2023 TECHNIQUE: AP view of the chest FINDINGS: Cardiac silhouette is enlarged. Calcified mediastinal and hilar lymph nodes. Atherosclerosis of the a jovani. Small moderate right pleural effusion with mild right basilar consolidation. Pulmonary vascular congestion with interstitial coarsening. Subcentimeter solid pulmonary nodules of the right lung. Angel christina appear grossly intact. Right shoulder arthroplasty. IMPRESSION: 1. Cardiomegaly with mild pulmonary edema. 2. Small to moderate pleural effusion with right basilar consolidation suggestive of compressive atel ectasis. 3. Subcentimeter solid pulmonary nodules of the right lung are better seen on the same day CTA of the chest. 4. Prior granulomatous disease. ACT 112: Negative or not required by law. The above report was generated using voice recognition software. It may contain grammatical, syntax o r spelling errors. Electronically signed by: Keshawn Reilly M.D. 12/25/2023 7:47 AM
--- NOTE | 2023-12-25 08:15 | Electrocardiogram Report ---
Test Reason : Blood Pressure : / mmHG Vent. Rate : 098 BPM Atrial Rate : 098 BPM P-R Int : 194 ms QRS Dur : 092 ms QT Int : 332 ms P-R-T Axes : -01 -12 026 degrees QTc Int : 423 ms Normal sinus rhythm Possible Old Inferior infarct Abnormal ECG When compared with ECG of 26-APR-2021 11:29, No significant change was found Confirmed by Mike Azar ([id number]) on 12/25/2023 8:14:59 AM Referred By: REFERRED SELF Confirmed By:Mike Azar
--- NOTE | 2023-12-25 12:01 | Surgery Consultation ---
Date of Consultation December 25, 2023 Assessment & Plan (1) Cholelithiasis: Patient is a pleasant 78 yo female with PMH of Mild aortic stenosis, DDD (degenerative disc disease), Overactive bladder ,Hypothyroidism ,Breast cancer, right, Borderline ,glaucoma, Vertigo, Prediabetes, Hypertensive left ventricular hypertrophy, without heart failure, Non-rheumatic mitral regurgitation, Allergic rhinitis, Obesity, Hyperlipidemia, CKD (chronic kidney disease), stage III, Recurrent UTI (urinary tract infection), Hypertension that presented to the [facility] ER on 12/21/23 after being seen as an outpatient for a reoccurring UTI that was not resolving with oral antibiotic treatment and right flank pain. The patient was admitted to the hospital and is currently being treated with IV antibiotics for UTI. The patient reports last night she started having left sided chest pain an EKG, was obtained and cardiac cause was r/o. The patient reported she was given some pain medication and the pain in her chest resided but she reports RUQ pain that radiates to her mid back. She rates this a 8/10 and describes it as a sharp stabing sensation. She reports she had some fevers and chills over night. The patient underwent an Abd./pelvis CT scan in the ER that showed the patient had Cholelithiasis. She reports no known history of gallstones and denies abdominal pain while eating greasy, fatty foods. She denies nausea, vomiting, and change in bowel habit. On exam patient is TTP in RUQ rates pain 8/10 LFT wnl on 12/21/23 Order an RUQ Ultrasound to r/o acute cholecystitis Continue IV antibiotics Will continue to monitor Case discussed with on-call surgeon Dr. Castro , further recommendations will be forthcoming. Supervising Physician Co-Signing Physician Notes Patient seen and examined, labs and imaging reviewed, agree with above. 78-yea r-old female admitted with UTI refractory to outpatient management. Last night she began having some right flank and right-sided abdominal pain. She states she still has pain throughout her abdomen that is not controlled with pain medications. She denies any nausea or vomiting bowel changes. This does not feel quite like what she came in with. On exam she is afebrile with stable vitals. Abdomen is soft, mildly tender to palpation throughout, slightly worse on the right side with no guarding or rebound. I could not elicit a positive Winn sign. The ultrasound that was performed earlier today showed cholelithiasis with borderline cholecystitis. I discussed the options to include surgery versus HIDA scan, and the family elects for HIDA scan. History of Present Illness Reason for Consultation: RUQ cholelithiasis Attending Physician: Lyudmila Jimenez MD History of Present Illness Patient is a pleasant 78 yo female with PMH of Mild aortic stenosis, DDD (degenerative disc disease), Overactive bladder ,Hypothyroidism ,Breast cancer, right, Borderline ,glaucoma, Vertigo, Prediabetes, Hypertensive left ventricular hypertrophy, without heart failure, Non-rheumatic mitral regurgitation, Allergic rhinitis, Obesity, Hyperlipidemia, CKD (chronic kidney disease), stage III, Recurrent UTI (urinary tract infection), Hypertension that presented to the [facility] ER on 12/21/23 after being seen as an outpatient for a reoccurring UTI that was not resolving with oral antibiotic treatment and right flank pain. The patient was admitted to the hospital and is currently being treated with IV antibiotics for UTI. The patient reports last night she started having left sided chest pain an EKG, was obtained and cardiac cause was r/o. The patient reported she was given some pain medication and the pain in her chest resided but she reports RUQ pain that radiates to her mid back. She rates this a 8/10 and describes it as a sharp stabing sensation. She reports she had some fevers and chills over night. The patient underwent an Abd./pelvis CT scan in the ER that showed the patient had Cholelithiasis. She reports no known history of gallstones and denies abdominal pain while eating greasy, fatty foods. She denies nausea, vomiting, and change in bowel habit. Allergies Allergy/AdvReac Type Severity Reaction Status Date / Time olive oil Allergy Severe EDEMA Verified 12/21/23 18:37 FACE/LIPS/TONGUE adhesive Allergy Intermediate skin Verified 12/21/23 18:37 irritation cephalexin Allergy Intermediate DIFFUSE Verified 12/21/23 18:37 MACULAR PAPULAR RASH erythromycin base Allergy Intermediate HIVES Verified 12/21/23 18:37 Sulfa (Sulfonamide Allergy Intermediate HIVES Verified 12/21/23 18:37 Antibiotics) latex Allergy Rash Verified 12/22/23 03:29 Home Medications Medication Instructions Recorded Confirmed Type simvastatin 20 mg tablet (Zocor) 20 mg PO QPM 11/01/19 12/21/23 History betamethasone, augmented 0.05 % 1 applic topical BID PRN NEEDED 04/18/21 12/21/23 History topical cream TO AFFECTED AREAS cholecalciferol (vitamin D3) 50 50 mcg PO QAM 04/18/21 12/21/23 History mcg (2,000 unit) capsule fluticasone propionate 50 2 spray intranasal DAILY 04/18/21 12/21/23 History mcg/actuation nasal spray,suspension hydrocortisone 2.5 % topical cream 1 applic topical TID PRN NEEDED 04/18/21 12/21/23 History levothyroxine 75 mcg capsule See Rx Instructions .Route .COMPLEX 04/18/21 12/21/23 History losartan 100 mg tablet 100 mg PO QAM 05/18/21 12/21/23 History meclizine 25 mg tablet 25 mg PO TID PRN Vertigo 05/18/21 12/21/23 History ondansetron 4 mg disintegrating 4 mg PO Q6H PRN Nausea 05/18/21 12/21/23 History tablet ipratropium bromide 21 mcg (0.03 2 spray intranasal BID PRN Nasal 07/03/21 12/21/23 History %) nasal spray Congestion peg 400-propylene glycol 0.4 %-0.3 1 drp ophthalmic (eye) DIRECTED 07/03/21 12/21/23 History % eye gel drops (Systane Gel) PRN Dry Eyes tamoxifen 20 mg tablet 20 mg PO DAILY 12/12/21 12/21/23 History acetaminophen 650 mg 650 mg PO Q8H PRN Pain 12/21/23 12/21/23 History tablet,extended release amlodipine 5 mg tablet 5 mg PO QAM 12/21/23 12/21/23 History cetirizine 10 mg tablet (Zyrtec) 10 mg PO DAILY 12/21/23 12/21/23 History clindamycin HCl 300 mg capsule 600 mg PO DIRECTED PRN 1 HR 12/21/23 12/21/23 History PRIOR TO DENTAL PROCEDURES hmwftkhczxr-cvyqhhwfv-ytz C-Mn 1 cap PO DAILY 12/21/23 12/21/23 History capsule (Glucosamine-Chondroitin Complex capsule) ibuprofen 200 mg tablet 200 mg PO Q6H PRN pain/fever 12/21/23 12/21/23 History abvzffqotqxp-wlmakpjx-vccagg tablet 1 tab PO DAILY 12/21/23 12/21/23 History pyridoxine (vitamin B6) 100 mg 100 mg PO DAILY 12/21/23 12/21/23 History tablet (Vitamin B-6) vitamin E acetate 134 mg (200 134 mg PO DAILY 12/21/23 12/21/23 History unit) capsule Patient History Medical History Mild aortic stenosis Per 11/15/20 ECHO= ARLENE =1.2-1.4 cm; AV mean gradient = 7.3 mmHg; AV max velocity 1.927 m/s Follows with [facility] cardio DDD (degenerative disc disease) Overactive bladder Hypothyroidism Breast cancer, right Dx 03/2021 Borderline glaucoma Vertigo Sciatica Prediabetes Hypertensive left ventricular hypertrophy, without heart failure Non-rheumatic mitral regurgitation Allergic rhinitis Obesity Hyperlipidemia CKD (chronic kidney disease), stage III 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 Helton 05/28/2021 History of hysterectomy History of breast biopsy History of cataract surgery Bilateral History of reverse total replacement of right shoulder joint (~12/2019) Hx of colonoscopy Hx of abdominal surgery MESENTERIC CYST REMOVED S/P knee replacement RIGHT AND LEFT H/O: hysterectomy Family History Sister Breast cancer Mother Breast cancer Pt believes this to be true Pacemaker Grandmother (Maternal) Breast cancer Father , 91yo Pacemaker Osteomyelitis Stroke CHF (congestive heart failure) Sister Diabetes Sister Stroke Hypertension Diabetes Sister Diabetes Daughter No problems noted. 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 How many Children do You have: 1 Other Information That Helps Us Care for You: No Feels Safe at Home: Yes Safety Concerns: Feels Safe At This Time Diet: regular caffeine: Yes (Diet coke 2-3 cans/day) during the past year weight has: remained stable Assistive Devices: Cane and Glasses Review of Systems Constitutional: + fever and + chills (last night ) Cardiovascular: no chest pain Gastrointestinal: + abdominal pain; no nausea and no vomit ing Genitourinary: + dysuria Integumentary: no rash Physical Exam Physical Exam: alert oriented Constitutional: cooperative, comfortable and + overweight; no acute distress ENMT: external ear and nose normal, oropharynx normal Respiratory: normal respiratory effort and able to speak in complete sentences; no respiratory distress Cardiovascular: Rate/Rhythm: regular rate Gastrointestinal (Abdomen): Inspection/Auscultation: abdomen not distended Percussion/Palpation: + abdomen tender (RUQ), + guarding and abdomen soft; abdomen not firm Musculoskeletal: no cyanosis or clubbing, extremities motor strength 5/5 Results & Data Vital Signs (Past 12 Hours) Vital Signs Temp Pulse Resp BP Pulse Ox O2 Del Method O2 Flow Rate 12/25/23 08:00 Room Air 12/25/23 07:11 97.7 F 78 18 115/73 95 Nasal Cannula 2 12/25/23 01:40 Nasal Cannula 2 12/24/23 23:44 99.1 F 98 H 18 122/71 94 Nasal Cannula 2 [phone] Scan Report Patient: PAIGE LOPEZ Admit Date: 12/21/23 MR#: [id number] Address1: [address] Acct ID:[id number] Address2: Date: 1945 [facility] Zip: [place] [address] Age: 78 Location: ED Sex: F Room/Bed: Att Phy: Diagnosis: UTI, NOT RESPONDING TO MEDS Ericka Phy: Dov Kohler DO Service Date: 12/21/23 Fam Phy: Interpreting Phy: Keshawn ReillyAdmnilam Phy: Ordering Phy: Td Grey DO cc: ~ ABDOMEN AND PELVIS CT WITHOUT CONTRAST CT DOSE: 1312.84 mGy.cm HISTORY: Acute right-sided flank pain right flank pain TECHNIQUE: Multiaxial CT images of the abdomen and pelvis were performed without contrast. A dose lowering technique was utilized adhering to the principles of ALARA. COMPARISON STUDY: PET/CT 10/29/2023, CT abdomen and pelvis 08/25/2023 FINDINGS: Small right pleural effusion. Mild bibasilar atelectasis. No free air. Calcified granulomata of the spleen. Unremarkable pancreas and adrenal glands. Cholelithiasis without CT evidence of acute cholecystitis. Unremarkable liver. Cysts of the right kidney measure up to 2.7 cm. Mild nonspecific bilateral perinephric stranding. No hydronephrosis, renal or ureteral calculi identified. Duplicated collecting systems and ureters on the right. Pelvic floor relaxation. Hysterectomy. Atherosclerosis of the aorta. No new or progressive lymphadenopathy. No bowel obstruction or bowel wall thickening. Colonic diverticulosis. Retrocecal calcifications are again noted, possibly medical collections representative of appendicoliths, unchanged. No acute inflammatory changes to suggest acute appendicitis. Unremarkable soft tissues. No acute fracture or destructive bone lesion. IMPRESSION: 1. Small right pleural effusion with mild right basilar atelectasis. 2. No bowel obstruction or bowel wall thickening. 3. Cholelithiasis. 4. No renal or ureteral calculi or hydronephrosis. 5. Additional findings as above. ACT 112: Negative or not required by law. The above report was generated using voice recognition software. It may contain grammatical, syntax or spelling errors. Electronically signed by: Keshawn Reilly M.D. 12/21/2023 7:22 PM Dictated: 12/21/231911 Transcribed: 12/21/231911 PG Care Time/CCT Total # of Minutes Spent Total Time Spent with Patient: Total time spent is greater than 50% in coordination of care (as documented) at patient's floor/unit and/or counseling patient: Coding Level of Care Code 91812 INT INP/OBS CARE 1/40MIN Diagnoses Cholelithiasis K80.20
--- NOTE | 2023-12-25 14:36 | Ultrasound Report ---
ABDOMINAL ULTRASOUND, RIGHT UPPER QUADRANT HISTORY: Acute right upper quadrant abdominal pain r/o acute cholecystitis. COMPARISON: CT 12/21/2023 FINDINGS: Pancreas: The pancreas demonstrates a normal echotexture. Liver: Increased echogenicity of the liver suggestive of mild hepatic steatosis measuring up to 15.8 cm. No hepatic mass or marginal nodularity. Periportal lymphadenopathy measures up to 1.3 cm. Gallbladder: Distended gallbladder with cholelithiasis. The gallbladder wall is upper limits of catrachito l at 3 mm. No definite pericholecystic fluid. Positive sonographic Winn's sign. CBD: 0.3 cm. Right kidney: 2.9 cm cyst. No hydronephrosis. IMPRESSION: 1. Cholelithiasis with borderline gallbladder wall thickening, gallbladder distention and reported po sitive sonographic Winn sign without pericholecystic fluid. Findings are equivocal for acute cholec ystitis and could be correlated with nuclear medicine hepatobiliary scan. 2. No biliary ductal dilation. ACT 112: Negative or not required by law. Electronically signed by: Keshawn Reilly M.D. 12/25/2023 2:35 PM
--- NOTE | 2023-12-25 17:00 | Hospitalist Progress Note ---
Date of Service December 25, 2023 Assessment & Plan (1) Acute UTI (urinary tract infection): Plan: Patient is a 78 yr female with H/O Hyperlipidemia, prediabetes, hyperparathyroidism, allergic rhinitis, hypertension, nonrheumatic mitral regurgitation, nonrheumatic aortic valve stenosis, CKD stage III, recurrent urticaria, history of recurrent UTIs, presents with his ESBL UTI. Patient noticed frequent urination and blood in the urine on December 06, 2023, initially she was prescribed Macrobid as she was not getting better she also had 5 days of Cipro. Cultures are growing ESBL. She was seen in urgent care today still she is having low back pain and frequent urination and was sent in here for IV antibiotics. Denies fevers. She states she was home tested for COVID positive on June 09, 2024. Still has some runny nose and shortness of breath. Denies any headache. Has weakness. No body aches. Appetite is okay. No chest pain. No cough. No sore throat. No nausea. No abdominal pain. No diarrhea or constipation. Resting comfortably and hemodynamically stable. Ambulates with cane. Acute UTI/pyelonephritis Outpatient urine Cultures growing ESBL on 12/06/23 Failed outpatient treatment with p.o. antibiotics --Blood, urine culture pending --CT ABD:Small right pleural effusion with mild right basilar atelectasis. No bowel obstruction or bowel wall thickening. Cholelithiasis. No renal or ureteral calculi or hydronephrosis. --ER started IV meropenem>> transition to ertapenem Day #2 Received gentle IV fluids Plan to complete 7-day course of antibiotics Cultures likely unreliable given antibiotic treatment prior to obtaining cultures PT/OT prior to discharge Cholelithiasis Likely acute cholecystitis Cholelithiasis was incidental finding on CT Patient started having abdominal pain since 12/24 at RUQ 2/8 US RUQ with equivocal for cholecystitis, Will send Hida scan N.p.o., general surgery on board, will follow recommendation Consider IV fluid likely in AM if patient continues to be NPO. Patient already on broad-spectrum antibiotic Atelectasis H/O COVID Continue Incentive spirometry Respiratory status seem to be at baseline Abn CTA chest 12/24: Patient made aware of questionable density measuring 1.6 x 0.5 cm in the right breast and advised to follow-up with oncology upon discharge. She was also made aware of the nodule measuring 4 mm within the right middle lobe of the lung and advised to have follow-up CT scan of the chest in 6 months time. Her and daughters were also at the bedside. They voiced understanding. Answered all the questions. Prediabetes: HbA1c 5.6 CKD stage III:Creatinine at baseline. Monitor renal function Hyperlipidemia: Continue statin Hypertension: Continue amlodipine, losartan. Fairly under control. Hypothyroidism: Continue levothyroxine H/O Breast cancer: S/p right lumpectomy and radiation. Currently on tamoxifen Obesity: BMI 35, encouraged weight loss/lifestyle modification. DVT Px: Lovenox SQ CODE STATUS: Full code Disposition: PT OT prior to discharge Admission and Anticipated Discharge Date Admission Date: December 21, 2023 Subjective Patient is seen and examined at bedside Right belly pain persisting through the night since yesterday, not much relieved w/ pain meds, no nausea and vomiting, made n.p.o., general surgery consulted, RUQ ultrasound equivocal for acute cholecystitis. Offers no other new complaints Persistent leukocytosis Denies any chest pain, dizziness, nausea, vomiting Discussed with patient's family at bedside Physical Exam Physical Exam: General Appearance:Obese, no apparent distress Head: normocephalic, Atraumatic Eyes: normal inspection, EOMI Neck: supple, Trachea midline Respiratory/Chest: Normal breath sounds, CTA, No accessory muscle use Cardiovascular: S1, S2, + murmur Abdomen/GI:Soft, right flank mild tender x ruq, Bowel sounds present Extremities/Musculoskeletal:normal inspection, no edema Neurologic/Psych:AAOX3, grossly no focal neurological deficits Skin: normal color, warm Results & Data Results & Data Vital Signs (Past 12 Hours) Vital Signs Temp Pulse Resp BP Pulse Ox O2 Del Method O2 Flow Rate 12/25/23 15:18 37.3 C 100 H 18 117/70 92 Room Air 12/25/23 08:00 Room Air 12/25/23 07:11 36.5 C 78 18 115/73 95 Nasal Cannula 2
[2023-12-26 06:20] LABS: Hematocrit (blood only) 34.8 % (37.0-47.0); Hemoglobin 10.8 g/dl (12.0-16.0); Mean Corpuscular Hemoglobin 27.2 pg (25.0-34.0); Mean Corpuscular Volume 87.7 fL (80.0-100.0); Mean Platelet Volume 11.3 fL (9.4-12.4); Platelet Count 278 K/uL (130-400); RDW Coefficient of Variation 13.4 % (11.5-14.5); RDW Standard Deviation 43.2 fL (36.4-46.3); Red Blood Count 3.97 M/uL (4.20-5.40); White Blood Count 11.76 K/ul (4.8-10.8)
[2023-12-26 06:34] LABS: BUN Creatinine Ratio 16.9 (10-20); Calcium 8.4 mg/dl (8.6-10.3); Creatinine Clr Calc Pharmacy 67.7 ml/min; Est GFR (African American) 85.1 ml/min; Est GFR (Non-African American) 73.4 ml/min; Potassium 3.8 mmol/L (3.5-5.1)
--- NOTE | 2023-12-26 09:14 | Nuclear Medicine Report ---
NM hepatobiliary CLINICAL HISTORY: 78 years-old Female with ro ac cholecystitis. Acute right upper quadrant abdominal pain TECHNIQUE: Sequential anterior abdominal images were obtained through 60 minutes following the intra venous administration of 5.0 mCi of technetium-99m Choletec. A lateral image was also obtained. COMPARISON: CT 12/21/2023 FINDINGS: There is prompt, uniform accumulation of the tracer by the liver. There is normal filling of the int rahepatic ducts, common bile duct and normal excretion of the tracer into the duodenum. The gallblad kian fills normally. There is moderate enterogastric reflux. IMPRESSION: No scintigraphic evidence for acute cholecystitis or common bile duct obstruction. ACT 112: Negative or not required by law. The above report was generated using voice recognition software. It may contain grammatical, syntax o r spelling errors. Electronically signed by: Keshawn Reilly M.D. 12/26/2023 9:12 AM
--- NOTE | 2023-12-26 12:42 | Surgery Progress Note ---
Date of Service December 26, 2023 Assessment & Plan (1) Acute flank pain: Plan: HIDA scan negative for acute obstruction or cholecystitis. We discussed options to include repeating a CT scan versus trialing food. This is unlikely to be secondary to her gallbladder, however if pain increases with eating then may need cholecystectomy. We will discuss with hospitalist team. No surgical indication at this time Will trial advancing diet and seeing how she tolerate Consider repeating CT scan throughout other sources for her pain especially given her recent complex UTI Dr. Natarajan covering over the weekend Can likely follow-up as an outpatient to discuss cholelithiasis (2) Cholelithiasis: (3) Acute UTI (urinary tract infection): Admission and Anticipated Discharge Date Admission Date: December 21, 2023 Subjective Admitted with complicated UTI, developed some right flank and right-sided abdominal pain over hospital stay. Cholelithiasis on CT scan from several days ago. Ultrasound yesterday showed cholelithiasis, but equivocal for cholecystitis. HIDA scan performed this morning. Pain hurts most when she moves, still present but improved. Physical Exam Constitutional: WD/WN, vitals as above + obese Gastrointestinal (Abdomen): Inspection/Auscultation: + abdominal surgical scar Percussion/Palpation: + abdomen tender (Right flank and right side of ab domen) and abdomen soft; no guarding and abdomen not rigid Results & Data Vital Signs (Past 12 Hours) Vital Signs Temp Pulse Resp BP Pulse Ox O2 Del Method 12/26/23 07:05 37.3 C 94 H 16 149/80 H 92 Room Air Laboratory Results Laboratory Results - last 24 hr 12/26/23 05:46 WBC 11.76 H RBC 3.97 L Hgb 10.8 L Hct 34.8 L MCV 87.7 MCH 27.2 MCHC 31.0 L RDW Std Deviation 43.2 RDW Coeff of Danette 13.4 Plt Count 278 MPV 11.3 Sodium 134 L Potassium 3.8 Chloride 99 Carbon Dioxide 30 Anion Gap 5 BUN 13 Creatinine 0.77 Est Cr Clr Drug Dosing 67.7 Est GFR ( Amer) 85.1 Est GFR (Non-Af Amer) 73.4 BUN/Creatinine Ratio 16.9 Glucose 100 H Calcium 8.4 L Magnesium 2.0 Diagnostic Findings NM hepatobiliary CLINICAL HISTORY: 78 years-old Female with ro ac cholecystitis. Acute right upper quadrant abdominal pain TECHNIQUE: Sequential anterior abdominal images were obtained through 60 minutes following the intravenous administration of 5.0 mCi of technetium-99m Choletec. A lateral image was also obtained. COMPARISON: CT 12/21/2023 FINDINGS: There is prompt, uniform accumulation of the tracer by the liver. There is normal filling of the intrahepatic ducts, common bile duct and normal excretion of the tracer into the duodenum. The gallbladder fills normally. There is moderate enterogastric reflux. IMPRESSION: No scintigraphic evidence for acute cholecystitis or common bile duct obstruction. PG Care Time/CCT Total # of Minutes Spent Total Time Spent with Patient: Total time spent is greater than 50% in coordination of care (as documented) at patient's floor/unit and/or counseling patient: Coding Level of Care Code 73645 SUB INP/OBS CARE 2MIN Diagnoses Acute flank pain R10.9 Cholelithiasis K80.20 Acute UTI (urinary tract infection) N39.0
--- NOTE | 2023-12-26 16:09 | Hospitalist Progress Note ---
Date of Service December 26, 2023 Assessment & Plan (1) Acute UTI (urinary tract infection): Plan: Patient is a 78 yr female with H/O Hyperlipidemia, prediabetes, hyperparathyroidism, allergic rhinitis, hypertension, nonrheumatic mitral regurgitation, nonrheumatic aortic valve stenosis, CKD stage III, recurrent urticaria, history of recurrent UTIs, presents with his ESBL UTI. Patient noticed frequent urination and blood in the urine on December 06, 2023, initially she was prescribed Macrobid as she was not getting better she also had 5 days of Cipro. Cultures are growing ESBL. She was seen in urgent care today still she is having low back pain and frequent urination and was sent in here for IV antibiotics. Denies fevers. She states she was home tested for COVID positive on June 09, 2024. Still has some runny nose and shortness of breath. Denies any headache. Has weakness. No body aches. Appetite is okay. No chest pain. No cough. No sore throat. No nausea. No abdominal pain. No diarrhea or constipation. Resting comfortably and hemodynamically stable. Ambulates with cane. Acute UTI/pyelonephritis Outpatient urine Cultures growing ESBL on 12/06/23 Failed outpatient treatment with p.o. antibiotics --Blood, urine culture pending --CT ABD:Small right pleural effusion with mild right basilar atelectasis. No bowel obstruction or bowel wall thickening. Cholelithiasis. No renal or ureteral calculi or hydronephrosis. --ER started IV meropenem>> transition to ertapenem Day #2 Received gentle IV fluids Plan to complete 7-10 day course of antibiotics for UTI Cultures likely unreliable given antibiotic treatment prior to obtaining cultures PT/OT prior to discharge Symptomatic Cholelithiasis Likely acute cholecystitis, ruled out Cholelithiasis was incidental finding on CT Patient started having abdominal pain since 12/24 at RUQ 12/25 US RUQ with equivocal for cholecystitis, 12/26 HIDA scan neg. Pt was NPO 12/25 and then on clears later in the evening, pt w/ better RUQ pain control on 12/26 Sx evaled, no sx for now. pt will be started on clears and will follow. if with increasing belly pain, will repeat CT scan. Follow up with Sx as OP. Pt on broad spectrum antibiotic. Atelectasis H/O COVID Continue Incentive spirometry Respiratory status seem to be at baseline Abn CTA chest 12/24: Patient made aware of questionable density measuring 1.6 x 0.5 cm in the right breast and advised to follow-up with oncology upon discharge. She was also made aware of the nodule measuring 4 mm within the right middle lobe of the lung and advised to have follow-up CT scan of the chest in 6 months time. Her and daughters were also at the bedside. They voiced understanding. Answered all the questions. This discussion happened 12/25/23. Prediabetes: HbA1c 5.6. CKD stage III:Creatinine at baseline. Monitor renal function Hyperlipidemia: Continue statin Hypertension: Continue amlodipine, losartan. Fairly under control. Hypothyroidism: Continue levothyroxine H/O Breast cancer: S/p right lumpectomy and radiation. Currently on tamoxifen Obesity: BMI 35, encouraged weight loss/lifestyle modification. DVT Px: Lovenox SQ CODE STATUS: Full code Disposition: PT OT prior to discharge. Pending improvement of ruq pain. Admission and Anticipated Discharge Date Admission Date: December 21, 2023 Subjective Patient is seen and examined at bedside Patient was lying in bed, on room air, resting comfortably, not in any acute distress. Patient reports being able to sleep overnight. Patient reports right upper quadrant improving, patient was n.p.o. and on clear liquid diet yesterday. HIDA scan was negative, patient and her updated, discussed with surgery, no plan for surgical intervention, advance diet as tolerated, will keep her on clear liquid diet today. Denies any chest pain, dizziness, nausea, vomiting 6 Physical Exam Physical Exam: General Appearance:Obese, no apparent distress Head: normocephalic, Atraumatic Eyes: normal inspection, EOMI Neck: supple, Trachea midline Respiratory/Chest: Normal breath sounds, CTA, No accessory muscle use Cardiovascular: S1, S2, + murmur Abdomen/GI:Soft, right flank mild tender x ruq --improving , Bowel sounds present Extremities/Musculoskeletal:normal inspection, no edema Neurologic/Psych:AAOX3, grossly no focal neurological deficits Skin: normal color, warm Results & Data Results & Data Vital Signs (Past 12 Hours) Vital Signs Temp Pulse Resp BP Pulse Ox O2 Del Method 12/26/23 14:16 37.1 C 99 H 16 151/89 H 92 Room Air 12/26/23 09:30 Room Air 12/26/23 07:05 37.3 C 94 H 16 149/80 H 92 Room Air
[2023-12-26] MEDS: XOPENEX/ATROVENT 1.25mg/0.5MG NEB COMBO NEB STA (19:12)
[2023-12-27] MEDS: LEVOTHYROXINE SODIUM 150 MCG TABLET PO SCH (05:58)
[2023-12-27 06:52] LABS: Hematocrit (blood only) 34.8 % (37.0-47.0); Hemoglobin 10.8 g/dl (12.0-16.0); Mean Corpuscular Hemoglobin 27.4 pg (25.0-34.0); Mean Corpuscular Volume 88.3 fL (80.0-100.0); Mean Platelet Volume 11.2 fL (9.4-12.4); Platelet Count 275 K/uL (130-400); RDW Coefficient of Variation 13.2 % (11.5-14.5); RDW Standard Deviation 43.1 fL (36.4-46.3); Red Blood Count 3.94 M/uL (4.20-5.40); White Blood Count 10.57 K/ul (4.8-10.8)
[2023-12-27 07:29] LABS: BUN Creatinine Ratio 16.4 (10-20); Calcium 8.3 mg/dl (8.6-10.3); Creatinine Clr Calc Pharmacy 71.5 ml/min; Est GFR (African American) 90.8 ml/min; Est GFR (Non-African American) 78.3 ml/min; Potassium 3.8 mmol/L (3.5-5.1)
--- NOTE | 2023-12-27 11:49 | Surgery Progress Note ---
Date of Service December 27, 2023 Assessment & Plan (1) Cholelithiasis: Plan: Her symptoms have resolved. Currently no indication of acute cholecystitis. Will advance her diet. We will sign off. Please call for any questions or concerns. She can follow-up with Dr. Castro in 1 to 2 weeks. Admission and Anticipated Discharge Date Admission Date: December 21, 2023 Subjective Patient seen. Continues to do well from an abdominal standpoint. Currently denies any abdominal pain. She is hungry and would like more to eat Physical Exam Constitutional: WD/WN, vitals as above no acute distress and not ill appearing Eyes: PERRL, conjunctivae normal, anicteric sclerae EOM intact bilaterally ENMT: external ear and nose normal, oropharynx normal Ears: no hearing impairment Neck: trachea midline, no thyromegaly Respiratory: normal respiratory effort; no respiratory distress and does not use accessory muscles Cardiovascular: Rate/Rhythm: regular rate and regular rhythm Gastrointestinal (Abdomen): normal bowel sounds, soft, nontender, no hepatosplenomegaly Skin: no rashes, warm and dry Psychiatric: Orientation: alert, oriented x 3 and cooperative Results & Data Vital Signs (Past 12 Hours) Vital Signs Temp Pulse Resp BP Pulse Ox O2 Del Method 12/27/23 07:46 36.5 C 88 16 129/82 95 Room Air PG Care Time/CCT Total # of Minutes Spent Total Time Spent with Patient: Total time spent is greater than 50% in coordination of care (as documented) at patient's floor/unit and/or counseling patient: Coding Level of Care Code 57142 SUB INP/OBS CARE 2/35MIN Diagnoses Cholelithiasis K80.20
[2023-12-27] MEDS: ONDANSETRON 4 MG OD TAB PO PRN (15:54)
--- NOTE | 2023-12-27 16:44 | Hospitalist Progress Note ---
Date of Service December 27, 2023 Assessment & Plan (1) Acute UTI (urinary tract infection): Plan: Patient is a 78 yr female with H/O Hyperlipidemia, prediabetes, hyperparathyroidism, allergic rhinitis, hypertension, nonrheumatic mitral regurgitation, nonrheumatic aortic valve stenosis, CKD stage III, recurrent urticaria, history of recurrent UTIs, presents with his ESBL UTI. Patient noticed frequent urination and blood in the urine on December 06, 2023, initially she was prescribed Macrobid as she was not getting better she also had 5 days of Cipro. Cultures are growing ESBL. She was seen in urgent care today still she is having low back pain and frequent urination and was sent in here for IV antibiotics. Denies fevers. She states she was home tested for COVID positive on June 09, 2024. Still has some runny nose and shortness of breath. Denies any headache. Has weakness. No body aches. Appetite is okay. No chest pain. No cough. No sore throat. No nausea. No abdominal pain. No diarrhea or constipation. Resting comfortably and hemodynamically stable. Ambulates with cane. Acute UTI/pyelonephritis Outpatient urine Cultures growing ESBL on 12/06/23 Failed outpatient treatment with p.o. antibiotics --Blood, urine culture pending --CT ABD:Small right pleural effusion with mild right basilar atelectasis. No bowel obstruction or bowel wall thickening. Cholelithiasis. No renal or ureteral calculi or hydronephrosis. --ER started IV meropenem>> transition to ertapenem Day #2 Received gentle IV fluids Plan to complete 7-10 day course of antibiotics for UTI Cultures likely unreliable given antibiotic treatment prior to obtaining cultures PT/OT prior to discharge Symptomatic Cholelithiasis Likely acute cholecystitis, ruled out Cholelithiasis was incidental finding on CT Patient started having abdominal pain since 12/24 at RUQ 12/25 US RUQ with equivocal for cholecystitis, 12/26 HIDA scan neg. Pt was NPO 12/25 and then on clears later in the evening, pt w/ better RUQ pain control on 12/26 Patient continued on clear liquid diet 12/26, significant improvement in her RUQ pain 12/27 Advance diet to full liquid diet with a plan to soft diet tomorrow morning and possible discharge later in the day tomorrow. Sx evaled, no sx for now. Follow-up with surgery in 1 to 2 weeks. if with increasing belly pain, will repeat CT scan. Follow up with Sx as OP. Atelectasis H/O COVID Continue Incentive spirometry Respiratory status seem to be at baseline Abn CTA chest 12/24: Patient made aware of questionable density measuring 1.6 x 0.5 cm in the right breast and advised to follow-up with oncology upon discharge. She was also made aware of the nodule measuring 4 mm within the right middle lobe of the lung and advised to have follow-up CT scan of the chest in 6 months time. Her and daughters were also at the bedside. They voiced understanding. Answered all the questions. This discussion happened 12/25/23. Prediabetes: HbA1c 5.6. CKD stage III:Creatinine at baseline. Monitor renal function Hyperlipidemia: Continue statin Hypertension: Continue amlodipine, losartan. Fairly under control. Hypothyroidism: Continue levothyroxine H/O Breast cancer: S/p right lumpectomy and radiation. Currently on tamoxifen Obesity: BMI 35, encouraged weight loss/lifestyle modification. DVT Px: Lovenox SQ CODE STATUS: Full code Disposition: PT OT prior to discharge. Pending improvement of ruq pain. Admission and Anticipated Discharge Date Admission Date: December 21, 2023 Subjective Patient is seen and examined at bedside Patient was lying in bed, on room air, resting comfortably, not in any acute distress. Patient reports significant improvement in her right upper quadrant pain, has been tolerating liquid diet, will advance to full liquid today with a plan to soft diet tomorrow morning. Patient denies other review of symptoms. Patient denies any chest pain or dizziness or nausea or vomiting. Physical Exam Physical Exam: General Appearance:Obese, no apparent distress Head: normocephalic, Atraumatic Eyes: normal inspection, EOMI Neck: supple, Trachea midline Respiratory/Chest: Normal breath sounds, CTA, No accessory muscle use Cardiovascular: S1, S2, + murmur Abdomen/GI:Soft, right flank no ruq tender, Bowel sounds present Extremities/Musculoskeletal:normal inspection, no edema Neurologic/Psych:AAOX3, grossly no focal neurological deficits Skin: normal color, warm Results & Data Results & Data Vital Signs (Past 12 Hours) Vital Signs Temp Pulse Resp BP Pulse Ox O2 Del Method 12/27/23 15:10 36.8 C 98 H 16 118/74 94 Room Air 12/27/23 07:46 36.5 C 88 16 129/82 95 Room Air
[2023-12-28 08:05] VITALS: BP 127/77; PULSE 103; RESP 16; TEMP 99; O2SAT 93
--- NOTE | 2023-12-28 12:50 | Discharge Summary ---
Date of Service December 28, 2023 Admission HPI Per Admitting Provider 78-year-old female with past medical history significant for hyperlipidemia, prediabetes, hyperparathyroidism, allergic rhinitis, hypertension, nonrheumatic mitral regurgitation, nonrheumatic aortic valve stenosis, CKD stage III, recurrent urticaria, history of recurrent UTIs, presents with his ESBL UTI. Patient noticed frequent urination and blood in the urine on December 06, 2023, initially she was prescribed Macrobid as she was not getting better she also had 5 days of Cipro. Cultures are growing ESBL. She was seen in urgent care today and still she is having low back pain and frequent urination and was sent in here for IV antibiotics. Denies fevers. She states she was home tested for COVID positive on December 10, 2023. Still has some runny nose and shortness of breath. Denies any headache. Has weakness. No body aches. Appetite is okay. No chest pain. No cough. No sore throat. No nausea. No abdominal pain. No diarrhea or constipation. Resting comfortably and hemodynamically stable. Ambulates with cane. Today in ER covid test came back negative. Past medical history. As mentioned above Past surgical history. Bilateral knee replacement. Colonoscopy. Parathyroidectomy. Injection of lumbosacral spine. Mesenteric cyst removed. Right shoulder reconstruction. Social history. . No smoking. No alcohol use. No drug use. Family history. Sister has diabetes. Father had tachybradycardia syndrome status post pacemaker. Thyroid disorder. Mother had bradycardia s/p pacemaker. Thyroid disorder. Brother has arthritis Admission Exam Per Admitting Provider General- Not in distress. Head- atraumatic Eyes- EOMI Neck- supple, no JVD. Lungs- clear to auscultation no wheezing or crackles. Heart- regular rhythm; no murmur, no gallop. Abdomen- normal bowel sounds, soft, nontender, no distension Extremities- no pretibial edema, no erythema seen Neuro- alert, oriented x 3; EOMI; no facial palsy; no dysarthria; moves extremities. Skin- warm & dry Principal Diagnosis Acute UTI/pyelonephritis Symptomatic cholelithiasis Discharge Exam General Appearance:Obese, no apparent distress Head: normocephalic, Atraumatic Eyes: normal inspection, EOMI Neck: supple, Trachea midline Respiratory/Chest: Normal breath sounds, CTA, No accessory muscle use Cardiovascular: S1, S2, + murmur Abdomen/GI:Soft, right flank no ruq tender, Bowel sounds present Extremities/Musculoskeletal:normal inspection, no edema Neurologic/Psych:AAOX3, grossly no focal neurological deficits Skin: normal color, warm Discharge Data Allergies Allergy/AdvReac Type Severity Reaction Status Date / Time olive oil Allergy Severe EDEMA Verified 12/21/23 18:37 FACE/LIPS/TONGUE adhesive Allergy Intermediate skin Verified 12/21/23 18:37 irritation cephalexin Allergy Intermediate DIFFUSE Verified 12/21/23 18:37 MACULAR PAPULAR RASH erythromycin base Allergy Intermediate HIVES Verified 12/21/23 18:37 Sulfa (Sulfonamide Allergy Intermediate HIVES Verified 12/21/23 18:37 Antibiotics) latex Allergy Rash Verified 12/22/23 03:29 Consultations 12/21/23 20:01 ED Decision to Admit Stat 12/25/23 10:41 Consult General Surgery Routine Ordered Studies 12/21/23 16:34 CT abd pelvis wo con Stat 12/24/23 23:16 CT angio chest PE protocol Stat 12/25/23 11:21 US abdomen [US liver] Routine Hospital Course (1) Acute UTI (urinary tract infection): Patient is a 78 yr female with H/O Hyperlipidemia, prediabetes, hyperparathyroidism, allergic rhinitis, hypertension, nonrheumatic mitral re gurgitation, nonrheumatic aortic valve stenosis, CKD stage III, recurrent urticaria, history of recurrent UTIs, presents with his ESBL UTI. Patient noticed frequent urination and blood in the urine on December 06, 2023, initially she was prescribed Macrobid as she was not getting better she also had 5 days of Cipro. Cultures are growing ESBL. She was seen in urgent care today still she is having low back pain and frequent urination and was sent in here for IV antibiotics. Denies fevers. She states she was home tested for COVID positive on June 09, 2024. Still has some runny nose and shortness of breath. Denies any headache. Has weakness. No body aches. Appetite is okay. No chest pain. No cough. No sore throat. No nausea. No abdominal pain. No diarrhea or constipation. Resting comfortably and hemodynamically stable. Ambulates with cane. She was managed for the following: Acute UTI/pyelonephritis Outpatient urine Cultures growing ESBL on 12/06/23 Failed outpatient treatment with p.o. antibiotics --Blood, urine culture pending --CT ABD:Small right pleural effusion with mild right basilar atelectasis. No bowel obstruction or bowel wall thickening. Cholelithiasis. No renal or ureteral calculi or hydronephrosis. --ER started IV meropenem>> transition to ertapenem on Day #2. s/p antibiotic course at discharge Cultures likely unreliable given antibiotic treatment prior to obtaining cultures Symptomatic Cholelithiasis Likely acute cholecystitis, ruled out Cholelithiasis was incidental finding on CT Patient started having abdominal pain since 12/24 at RUQ 12/25 US RUQ with equivocal for cholecystitis, 12/26 HIDA scan neg. Pt was NPO 12/25 and then on clears later in the evening, pt w/ better RUQ pain control on 12/26 Patient continued on clear liquid diet 12/26 and full liq diet on 12/27, significant improvement in her RUQ pain 12/28 Advanced diet to soft liquid diet - no pain. pt will be discharged on soft diet for few days. Sx evaled, no sx for now. Follow-up with surgery in 1 to 2 weeks. Pt and her are aware. Atelectasis H/O COVID Continue Incentive spirometry Respiratory status seem to be at baseline Abn CTA chest 12/24: Patient made aware of questionable density measuring 1.6 x 0.5 cm in the right breast and advised to follow-up with oncology upon discharge. She was also made aware of the nodule measuring 4 mm within the right middle lobe of the lung and advised to have follow-up CT scan of the chest in 6 months time. Her and daughters were also at the bedside. They voiced understanding. Answered all the questions. This discussion happened 12/25/23. Prediabetes: HbA1c 5.6. CKD stage III:Creatinine at baseline. Monitor renal function Hyperlipidemia: Continue statin Hypertension: Continue amlodipine, losartan. Fairly under control. Hypothyroidism: Continue levothyroxine H/O Breast cancer: S/p right lumpectomy and radiation. Currently on tamoxifen Obesity: BMI 35, encouraged weight loss/lifestyle modification. DVT Px: Lovenox SQ CODE STATUS: Full code Disposition: PT OT prior to discharge. Pending improvement of ruq pain. Patient is being discharged to home with home meds with following instruction at the point of discharge: Follow-up with your primary care physician within a week time and likely you will need labs CBC/CMP/magnesium/phosphorus. You were treated for UTI/pyelonephritis, you completed the course of IV antibiotic while in hospital. You also had symptomatic gallbladder stone, general surgery evaluated you, you declined the possibility of surgery for now. Your right upper quadrant pain improved after being on clear liquid diet. Continue with soft diet for next 1 week before you go back to your regular consistency diet. Maintain low-fat diet. Follow-up with surgery in 1 to 2 weeks time upon discharge for further plan of care/reassessment. As has been updated to you/your and your daughter at bedside, you had questionable density measuring 1.6 x 0.5 cm in the right breast and you will need follow-up with oncology upon discharge for further assessment/evaluation/management. You were also made aware of 4 mm nodule in the right middle lobe of the lung and you will need repeat CT scan of the chest in 6 months time. Coordinate with your PCP office to set up the test. Take your medications as prescribed. Please make sure that you are able to get your medications today by calling your pharmacy before you leave the hospital so that your treatment continuity is not broken. Home Health Attestation I certify that this patient is under my care and that I, or a physicians assistant cross country coach working with me, had a face to-face encounter that meets the home health [id number] encounter requirements with this patient. The encounter with the patient was in whole, or in part, for the following medical condition, which is the primary reason for home health care (list medical condition): I certify that, based on my findings, the following services are medically necessary home health services: My clinical findings support the need for the above services because: Further, I certify that my clinical findings support that this patient is homebound (i.e. absences from home require considerable and taxing effort and are for medical reasons or congregational services or infrequently or of short duration when for other reasons) because: Certification for Home Health Services: Based on the above findings, I certify that this patient is confined to the home and needs intermittent senior care care, physical therapy and/or speech therapy or continues to need occupational therapy. The patient is under my care, and I have initiated the establishment of the plan of care. This patient will be followed by a physician who will periodically review the plan of care. Total Time Total Time Spent Total Time Spent (In Minutes): 45 Discharge Plan Discharge Items Patient Disposition: Home - Home Health Services Reason For Visit: ESBL UTI, COVID Discharge Diagnosis: Acute UTI/pyelonephritis Symptomatic cholelithiasis Activity: Resume your previous activity Non-emergency contact: Primary Care Provider Call non-emergency contact if: you have any medication questions Follow-up/Referrals: Mehrdad Castro DO, KIMBERLI [Physician] - (you may follow up as an outpatient if you wish to discuss options regarding your gallstones) Dov Kohler DO [Primary Care Provider] - Diet: Heart Healthy and Low Fat Diet Texture: Dental soft (bite-sized) Addtl Attending Provider Instructions: Follow-up with your primary care physician within a week time and likely you will need labs CBC/CMP/magnesium/phosphorus. You were treated for UTI/pyelonephritis, you completed the course of IV antibiotic while in hospital. You also had symptomatic gallbladder stone, general surgery evaluated you, you declined the possibility of surgery for now. Your right upper quadrant pain improved after being on clear liquid diet. Continue with soft diet for next 1 week before you go back to your regular consistency diet. Maintain low-fat diet. Follow-up with surgery in 1 to 2 weeks time upon discharge for further plan of care/reassessment. As has been updated to you/your and your daughter at bedside, you had questionable density measuring 1.6 x 0.5 cm in the right breast and you will need follow-up with oncology upon discharge for further assessment/evaluation/management. You were also made aware of 4 mm nodule in the right middle lobe of the lung and you will need repeat CT scan of the chest in 6 months time. Coordinate with your PCP office to set up the test. Take your medications as prescribed. Please make sure that you are able to get your medications today by calling your pharmacy before you leave the hospital so that your treatment continuity is not broken. Pending Studies at Discharge: Yes Stand-Alone Forms: My Monogram, Smoking Cessation Medications and DC Order Prescriptions: Continued Systane Gel 0.4-0.3 % drops,gel 1 drp ophthalmic (eye) DIRECTED PRN (Reason: Dry Eyes) tamoxifen 20 mg tablet 20 mg PO DAILY simvastatin [Zocor] 20 mg tablet 20 mg PO QPM ipratropium bromide 21 mcg (0.03 %) spray,non-aerosol 2 spray INTNAS BID PRN (Reason: Nasal Congestion) levothyroxine 75 mcg capsule See Rx Instructions .ROUTE .COMPLEX Rx Instructions: TAKES 75 MCG FRIDAY THROUGH FRIDAY, THEN 150 MCG ON SAT. & SUN. fluticasone propionate 50 mcg/actuation spray,suspension 2 spray intranasal DAILY Rx Instructions: administer into each nostril cholecalciferol (vitamin D3) 50 mcg (2,000 unit) capsule 50 mcg PO QAM betamethasone, augmented 0.05 % cream 1 applic topical BID PRN (Reason: NEEDED TO AFFECTED AREAS) hydrocortisone 2.5 % cream 1 applic topical TID PRN (Reason: NEEDED) losartan 100 mg Tablet 100 mg PO QAM meclizine 25 mg Tablet 25 mg PO TID PRN (Reason: Vertigo) ondansetron 4 mg Tablet,Disintegrating 4 mg PO Q6H PRN (Reason: Nausea) cetirizine [Zyrtec] 10 mg Tablet 10 mg PO DAILY Glucosamine-Chondroitin Complx Capsule 1 cap PO DAILY amlodipine 5 mg tablet 5 mg PO QAM acetaminophen [Tylenol Extended Release] 650 mg Tablet Extended Release 650 mg PO Q8H PRN (Reason: Pain) ibuprofen 200 mg Tablet 200 mg PO Q6H PRN (Reason: pain/fever) pyridoxine (vitamin B6) [Vitamin B-6] 100 mg Tablet 100 mg PO DAILY Centrum Silver Tablet 1 tab PO DAILY vitamin E acetate 134 mg (200 unit) Capsule 134 mg PO DAILY clindamycin HCl 300 mg capsule 600 mg PO DIRECTED PRN (Reason: 1 HR PRIOR TO DENTAL PROCEDURES) Discharge Orders: Discharge Order (Routine); Ordered 12/28/23 Ordered By: Lyudmila Jimenez Admission Data Admit Date/Time: 12/21/23 21:59 Attending Provider: Lyudmila Jimenez Admit Provider: Hector Dallas Primary Care Provider: Dov Kohler Other Providers: Hector Dallas; Mehrdad Castro
== END 2023-12-28 15:35 | disposition home or self-care (01) | DRG 690 ==
LOC: ED 16:06 → 3E 21:59 → SUATTDRO 21:59 → 3E 22:59

== ENCOUNTER 2025-09-17 10:56 | Inpatient (IN) ==
--- NOTE | 2025-09-17 11:11 | Emergency Department Note ---
Impression & Plan Chest pain ED Provider Note Name: PAIGE LOPEZ Age: 80 Sex: Female Arrives Via: Walk-In Informant: Patient, ED Provider: Tom Shore MD Chief Complaint: Chest pain Impression: As per impressions above Medical Decision Making: Pleasant 80-year-old female with history of hypertension, calcific aortic valve, hypothyroid, arrives for evaluation of worsening substernal chest pain with radiation to left arm and left neck. Associated with lightheadedness and dizziness. Given nitro on arrival with resolution of chest pain. She already took aspirin prior to arrival. EKG does not show ischemia. Laboratory workup is reassuring. In the setting of patient's age and comorbid conditions along with the fact that complete resolution with nitro will plan on hospitalization for cardiac rule out. Patient is not short of breath does not tachycardia or significant hypoxia we will hold off on CT imaging and defer to hospitalist service. Patient is agreeable to hospitalization as this has been. Triage/Nursing Notes reviewed by Me External Chart Review by me: I reviewed an outpatient note from 05/30/2025 discussing patient's past medical history. Differential:Cardiac ischemia, aortic dissection, pulmonary embolism, pneumothorax, pneumonia, pericarditis, myocarditis, esophageal rupture, GERD, cholecystitis, pancreatitis, musculoskeletal, as well as other pathologies. Vital Signs: reviewed and remarkable for no significant abnormalities Interventions: Sublingual nitroglycerin Labs:ED labs Reviewed by me and remarkable for no significant abnormalities Imagin view chest x-ray as per my interpretation no infiltrate no effusion appreciated EKG:As per my interpretation. Indication chest pain. Sinus at 100 bpm with a first-degree AV block QTc 436. There is no ectopy appreciated. There is no overt ischemia. When compared to EKG of May 14, 2025 no significant change. Cardiac/Tele Monitoring: Cardiac Monitoring: An Order was placed for continuous cardiac monitoring. The monitor shows a rate of 100 with a normal sinus rhythm. Consults:Discussed with Dr Rody Garcia hospitalist who will further evaluate and manage. Plan: Disposition:Hospitalization. Condition: Fair History of Present Illness: 80-year-old woman who arrives for evaluation of chest pain. Patient awoke this morning with some lightheadedness and dizziness. She states she is having some substernal chest pressure. Symptoms moderate in intensity. Also is having some left-sided neck as well as left upper arm discomfort. Denies any syncope, difficulty breathing, abdominal pain, nausea, vomiting. Patient has been experiencing some episodes of palpitations and fast heart rates. She currently has a heart monitor on to evaluate the reasons for that. Patient does not have a history of coronary artery disease. She does have a history of aortic valve replacement trans arterial. She is not on any blood thinners other than 81 mg daily. Patient did take 324 mg this morning when she awoke with the chest discomfort. No recent falls, trauma, injuries. Past Medical History: Hypertension, calcified aortic valve, hypothyroidism, anxiety/depression, vertigo, dyslipidemia amongst others Home Medications:See Below Allergies: Adhesive, cephalexin, erythromycin, latex, sulfa Vitals:Blood Pressure: 158/90, Pulse 100, RR 20, T 36.6C, O2 97% on RA Physical Exam: GENERAL: Patient is anxious appearing and in mild distress. RESPIRATORY: No dyspnea. Clear to auscultation and equal bilaterally. CARDIOVASCULAR: Regular rate and rhythm.No murmur appreciated. GASTROINTESTINAL: Abdomen soft, non-tender, no peritonitis. EXTREMITIES: Normal motion all extremities, no cyanosis, no edema. NEUROLOGIC: Alert and oriented. No focal neurologic deficits appreciated SKIN: No rash, no jaundice, no diaphoresis. PSYCH: Appropriate GCS: 15 ED Course: Times/Reassessments: Repeat evaluation with complete resolution of symptoms and patient feeling well Tom Shore MD Past Med/Surg History Problem List (Updated 09/18/25 @ 06:12 by Tom Shore MD) Chest pain (Acute) Leukocytosis Aftercare following right hip joint replacement surgery Postoperative anemia due to acute blood loss Status post right hip replacement Postoperative hypotension Arthritis of right hip Painful total knee replacement, right Medical History Lymphadenopathy, axillary Trochanteric bursitis, right hip Malignant neoplasm of upper-outer quadrant of right breast in female, estrogen receptor positive (03/29/21) History of blood transfusion during bilat TKA Vertigo occasional, chronic, denies change or worsening-resolves with PT, denies needing meclizine recently Limb alert care status right arm Cholelithiasis pt denies current or hx gallbladder problem. History of vertigo History of sciatica History of fracture left hand, no sx. History of recurrent UTI (urinary tract infection) would only resolve with IV tx in the past. no recent UTI. History of hyperparathyroidism s/p parathyroid adenoma surgery Aortic stenosis TAVR 03/11. Axillary lymphadenopathy hx, removed lymph nodes 10/2024 "non cancerous" History of COVID-19 (05/2024) no hosp; resolved Neuropathy bilat feet; severe, right leg DDD (degenerative disc disease) Overactive bladder Hypothyroidism Breast cancer, right Dx 03/2021 - s/p right breast lumpectomy with sentinel LN biopsy hx 20 sessions radiation-right arm restriction Borderline glaucoma Prediabetes Hypertensive left ventricular hypertrophy, without heart failure Allergic rhinitis Obesity Hyperlipidemia CKD (chronic kidney disease), stage III Hypertension controlled, stable per pt Surgical History History of cardiac cath approx 12/2024, prior to TAVR in february 2025. Akhil. Attempted to do through right wrist, had to go through groin. History of surgery (10/2024) lymph nodes removed, left. non cancerous per pt. 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 Helton 05/28/2021 H/O parathyroidectomy (2021) History of hysterectomy History of breast biopsy right History of cataract surgery Bilateral History of reverse total replacement of right shoulder joint (~12/2019) Hx of colonoscopy Hx of abdominal surgery mesenteric cyst removed S/P knee replacement (2010) bilat Family History Sister Breast cancer Mother Breast cancer Pt believes this to be true Pacemaker Grandmother (Maternal) Breast cancer Father , 91yo Pacemaker Osteomyelitis Stroke CHF (congestive heart failure) Sister Diabetes Sister Stroke Hypertension Diabetes Sister Diabetes Daughter No problems noted. 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 How many Children do You have: 2 Feels Safe at Home: Yes Diet: regular caffeine: Yes (Diet coke 2-3 cans/day) during the past year weight has: remained stable Assistive Devices: Cane and Glasses Allergies Allergies Allergy/AdvReac Type Severity Reaction Status Date / Time olive oil Allergy Severe EDEMA Verified 06/16/25 13:16 FACE/LIPS/TONGUE adhesive Allergy Unknown skin Verified 06/16/25 13:16 irritation cephalexin Allergy Unknown DIFFUSE Verified 06/16/25 13:16 MACULAR PAPULAR RASH erythromycin base Allergy Unknown HIVES Verified 06/16/25 13:16 latex Allergy Unknown Rash Verified 06/16/25 13:16 Sulfa (Sulfonamide Allergy Unknown HIVES Verified 06/16/25 13:16 Antibiotics) Home Meds Home Medications Medication Instructions Recorded Confirmed simvastatin 20 mg tablet (Zocor) 20 mg PO QPM 11/01/19 09/17/25 betamethasone, augmented 0.05 % 1 applic topical BID PRN Skin 04/18/21 09/17/25 topical cream Irritation cholecalciferol (vitamin D3) 50 50 mcg PO QAM 04/18/21 09/17/25 mcg (2,000 unit) capsule fluticasone propionate 50 2 spray intranasal BID 04/18/21 09/17/25 mcg/actuation nasal spray,suspension hydrocortisone 2.5 % topical cream 1 applic topical UD PRN Skin 04/18/21 09/17/25 Irritation losartan 100 mg tablet 100 mg PO QAM 05/18/21 09/17/25 meclizine 25 mg tablet 25 mg PO UD PRN Vertigo 05/18/21 09/17/25 ondansetron 4 mg disintegrating 4 mg PO Q6H PRN Nausea w/ vertigo 05/18/21 09/17/25 tablet ipratropium bromide 21 mcg (0.03 2 spray intranasal BID Nasal 07/03/21 09/17/25 %) nasal spray Congestion peg 400-propylene glycol 0.4 %-0.3 1 drp ophthalmic (eye) QAM Dry Eyes 07/03/21 09/17/25 % eye gel drops (Systane Gel) tamoxifen 20 mg tablet 20 mg PO QAM 12/12/21 09/17/25 amlodipine 5 mg tablet 5 mg PO QAM 12/21/23 09/17/25 cetirizine 10 mg tablet (Zyrtec) 10 mg PO QAM 12/21/23 09/17/25 [id number]-[id number]-[id number] C-Mn 2 cap PO DAILY 12/21/23 09/17/25 capsule (Glucosamine-Chondroitin Complex capsule) pyridoxine (vitamin B6) 100 mg 100 mg PO DAILY 12/21/23 09/17/25 tablet (Vitamin B-6) venlafaxine 37.5 mg 37.5 mg PO HS 04/13/25 09/17/25 capsule,extended release 24 hr (Effexor XR) ibuprofen 200 mg capsule 400 mg PO Q6H PRN Pain 06/16/25 09/17/25 acetaminophen 650 mg 650 mg PO Q8H PRN Pain 09/17/25 09/17/25 tablet,extended release aspirin 81 mg tablet 81 mg PO DAILY 09/17/25 09/17/25 levothyroxine 50 mcg tablet 50 mcg PO DAILY 09/17/25 09/17/25 Previous Rx's Medication Instructions Recorded tramadol 50 mg tablet 50 - 100 mg (1 - 2 x 50 mg) PO Q6 05/10/25 PRN pain #40 tabs Results & Data (ED) Vital Signs Vital Signs - 24 hr 09/17/25 10:57 09/17/25 11:22 09/17/25 11:25 Temperature 36.6 C Temperature Source Temporal Artery Scan Pulse Rate 100 H 91 H Pulse Rate [Apical] 105 H Pulse Rhythm [Apical] Regular Pulse Strength [Apical] Normal Respiratory Rate 18 20 Respiratory Effort / Characteristics Non-Labored Spontaneous Respiratory Depth Normal Respiratory Pattern Regular Blood Pressure 158/90 H Blood Pressure [Right Arm] 147/92 H Blood Pressure Mean 112 Blood Pressure Mean [Right Arm] 110 Blood Pressure Position [Right Arm] Lying Pulse Oximetry 97 94 Oxygen Delivery Method Room Air Sepsis Recent Fever Within 48 Hours No Sepsis New/Unexplained Change in Mental Status N/A Sepsis Action Taken by Nursing No Action Required 09/17/25 13:00 Temperature Temperature Source Pulse Rate Pulse Rate [Apical] 79 Pulse Rhythm [Apical] Regular Pulse Strength [Apical] Normal Respiratory Rate 20 Respiratory Effort / Characteristics Non-Labored Spontaneous Respiratory Depth Normal Respiratory Pattern Regular Blood Pressure Blood Pressure [Right Arm] 134/88 Blood Pressure Mean Blood Pressure Mean [Right Arm] 103 Blood Pressure Position [Right Arm] Lying Pulse Oximetry 96 Oxygen Delivery Method Room Air Sepsis Recent Fever Within 48 Hours Sepsis New/Unexplained Change in Mental Status Sepsis Action Taken by Nursing Laboratory Data 09/17/25 11:20 09/17/25 11:20 Lab Results 09/17/25 09/17/25 Range/Units 11:20 13:32 WBC 7.36 (4.8-10.8) K/ul RBC 4.75 (4.20-5.40) M/uL Hgb 13.1 (12.0-16.0) g/dl Hct 40.6 (37.0-47.0) % MCV 85.5 (80.0-100.0) fL MCH 27.6 (25.0-34.0) pg MCHC 32.3 (32.0-36.0) g/dL RDW Std Deviation 44.8 (36.4-46.3) fL RDW Coeff of Danette 14.3 (11.5-14.5) % Plt Count 172 (130-400) K/uL MPV 12.2 (9.4-12.4) fL Immature Gran % (Auto) 0.1 % Neut % (Auto) 61.0 % Lymph % (Auto) 17.5 % [facility] % (Auto) 13.9 % Eos % (Auto) 4.1 % Baso % (Auto) 3.4 % Neut # (Auto) 4.49 (1.40-6.50) K/uL Lymph # (Auto) 1.29 (1.20-3.40) K/uL [facility] # (Auto) 1.02 H (0.11-0.59) K/uL Eos # (Auto) 0.30 (0.00-0.50) K/uL Baso # (Auto) 0.25 H (0.00-0.20) K/uL Immature Gran # (Auto) 0.01 (0.01-0.20) K/uL D-Dimer 2040 H* (0-500) ug/L FEU Sodium 135 L (136-145) mmol/L Potassium 4.1 (3.5-5.1) mmol/L Chloride 99 (98-107) mmol/L Carbon Dioxide 28 (21-32) mmol/L Anion Gap 8 (3-11) BUN 15 (6-23) mg/dl Creatinine 0.83 (0.6-1.2) mg/dl Est Cr Clr Drug Dosing 57.6 ml/min eGFR 70.78 BUN/Creatinine Ratio 18.1 (10-20) Glucose 121 H (70-99(Fasting)) mg/dl Calcium 9.3 (8.6-10.3) mg/dl Magnesium 1.8 (1.7-2.4) mg/dl Troponin I High Sens 5.9 (0-14) pg/ml Urine Color Yellow Urine Appearance Clear (Clear) Urine pH 8.0 H (4.5-7.5) Ur Specific [place] 1.009 (1.000-1.030) Urine Protein Negative (Negative) Urine Glucose (UA) Negative (Negative) Urine Ketones Negative (Negative) Urine Blood 1+ H (Negative) Urine Nitrite Negative (Negative) Urine Bilirubin Negative (Negative) Urine Urobilinogen Negative (Negative) Ur Leukocyte Esterase 3+ H (Negative) Urine WBC (Auto) >50 H (0-5) /hpf Urine RBC (Auto) 6-10 H (0-2) /hpf U Hyaline Cast (Auto) 0-2 (0-2) /lpf U Epithel Cells (Auto) 0-2 (0-2) /hpf Urine Bacteria (Auto) 4+ H (None Seen) Urine Comment Administered Medications Heparin Sodium (Porcine) (Heparin Sod 5,000 Unit/0.5 Ml Vial) 5,000 units SQ Q12 AMADOU Stop: 10/17/25 20:59 Last Admin: 09/17/25 20:44 Dose: Not Given Documented By: stef Levothyroxine Sodium (Levothyroxine Sodium 50 Mcg Tablet) 50 mcg PO DAILYBB [facility] Stop: 10/18/25 06:29 Last Admin: 09/18/25 06:08 Dose: 50 mcg Documented By: setf Metoprolol Succinate (Metoprolol Succ 25mg Ext Rel Tab) 12.5 mg PO QPM AMADOU Stop: 10/17/25 20:59 Last Admin: 09/17/25 20:43 Dose: 12.5 mg Documented By: stef Simvastatin (Simvastatin 20 Mg Tab) 20 mg PO QPM AMADOU Stop: 10/17/25 20:59 Last Admin: 09/17/25 20:43 Dose: 20 mg Documented By: stef Venlafaxine HCl (Venlafaxine Hcl Xr 37.5 Mg Capxr) 37.5 mg PO HS AMADOU Stop: 10/17/25 20:59 Last Admin: 09/17/25 20:43 Dose: 37.5 mg Documented By: stef Discontinued Medications Ioversol (Optiray 320 125ml) 119 ml IV ONCE ONE Stop: 09/17/25 14:47 Last Admin: 09/17/25 14:46 Dose: 119 ml Documented By: LAYNE Nitroglycerin (Nitroglycerin Sl 0.4 Mg/Tab Tab) 0.4 mg SL NOW STA Stop: 09/17/25 11:09 Last Admin: 09/17/25 11:18 Dose: 0.4 mg Documented By: PILAR Discharge Plan Visit Data Chief Complaint: Chest Pain Stated Complaint: CHEST PRESSURE, HIGH BP, L ARM PAIN, DIZZY ED Provider: Tom Shore Discharge Problem: Chest pain Patient Disposition: Admitted As Inpatient Condition: Fair Discharge Instructions Interventions: ED Discharge Assessment Last Done: 09/17/25 17:30 Discharge Problem: Chest pain Qualifiers: Chest pain type: unspecified Qualified Code(s): R07.9 - Chest pain, unspecified
[2025-09-17] MEDS: NITROGLYCERIN SL 0.4 MG/TAB TAB SL STA (11:18)
--- NOTE | 2025-09-17 11:31 | XRay Report ---
XR chest 1V portable CLINICAL HISTORY: chest pain COMPARISON STUDY: 05/14/2025 FINDINGS: Small electronic device overlies the left mid chest. Stable aortic valve repair. Stable mil d cardiomegaly without pulmonary vascular congestion. No consolidation or pleural effusion. No pneumo thorax. IMPRESSION: No acute findings. ACT 112: Negative or not required by law. Electronically signed by: Mehrdad Shahid M.D. 09/17/2025 11:29 AM
[2025-09-17 11:42] LABS: Hematocrit (blood only) 40.6 % (37.0-47.0); Hemoglobin 13.1 g/dl (12.0-16.0); Immature Granulocytes # (auto) 0.01 K/uL (0.01-0.20); Immature Granulocytes % (auto) 0.1 %; Mean Corpuscular Hemoglobin 27.6 pg (25.0-34.0); Mean Corpuscular Volume 85.5 fL (80.0-100.0); Platelet Count 172 K/uL (130-400); RDW Standard Deviation 44.8 fL (36.4-46.3); Red Blood Count 4.75 M/uL (4.20-5.40); White Blood Count 7.36 K/ul (4.8-10.8)
[2025-09-17 12:01] LABS: Anion Gap 8.0 (3-11); Blood Urea Nitrogen 15.0 mg/dl (6-23); Calcium 9.3 mg/dl (8.6-10.3); Carbon Dioxide 28.0 mmol/L (21-32); Chloride 99.0 mmol/L (98-107); Creatinine Clr Calc Pharmacy 57.6 ml/min; Glucose 121.0 mg/dl (70-99(Fasting)); Magnesium 1.8 mg/dl (1.7-2.4); Potassium 4.1 mmol/L (3.5-5.1); Sodium 135.0 mmol/L (136-145)
--- NOTE | 2025-09-17 13:44 | History & Physical Report ---
Date of Service September 17, 2025 Assessment & Plan (1) Chest pain: (2) Aortic stenosis: Plan 80F with PMH severe s/p TAVR 03/01/25, HTN, HLD, hypothyroidism, chronic vertigo who presents with chest pain. #Chest pain -Substernal chest pain with radiation down L arm and jaw -Not related to exertion however relieved by nitro -EKG and HS trop reassuring -She had TAVR done in february and [facility] 01/12/25 with normal coronaries -This would make CAD less likely however she demonstrates classic symptoms of angina other than lack of exertional chest pain -She also has been mildly tachycardic for the past two weeks and is currently wearing a zio monitor Plan -Given her complex cardiac history, will ask cardio to evaluate -Recheck Trop -Check D dimer given her tachycardia. -Cardiac monitoring -Will make NPO in case cardio wishes to perform stress test tomorrow #Severe aortic stenosis s/p TAVR -Currently followed by Jose and is in cardiac rehab #HTN -Normotensive in ED -Continue home norvasc, ARB and metoprolol #Hypothyroidism -Continue synthroid #HLD -Statin I spent a total of 65 minutes coordinating, documenting, and providing care for this patient excluding time spent in the performance of separately billed services. This included personally reviewing all current laboratories and imaging studies, medical reconciliation, outpatient chart review and discussion with specialists History of Present Illness Chief Complaint: chest pain Primary Care Provider: Dov Kohler DO Ms. Zimmerman is a very pleasant 80F with PMH severe s/p TAVR 03/01/25, HTN, HLD, hypothyroidism, chronic vertigo who presents with chest pain. Patient awoke this AM at 0930 with dizziness and then by 10 AM developed substernal chest pressure with pain radiating to jaw and L arm. She checked her BP and it was SBP 190s. Her immediately brought her to the ED. Chest pain was relieved by nitro in ED. Denies similar symptoms in the past. She is currently symptom free. She took 325 ASA at home prior to going to the ED. Patient denies F/C, CP, palpitations, SOB, dyspnea, abd pain, N/V/D In the ED vitals are stable. EKG NSR without ST segment changes . HS trop x 1 normal at 5.9. CXR clear Allergies Allergy/AdvReac Type Severity Reaction Status Date / Time olive oil Allergy Severe EDEMA Verified 06/16/25 13:16 FACE/LIPS/TONGUE adhesive Allergy Unknown skin Verified 06/16/25 13:16 irritation cephalexin Allergy Unknown DIFFUSE Verified 06/16/25 13:16 MACULAR PAPULAR RASH erythromycin base Allergy Unknown HIVES Verified 06/16/25 13:16 latex Allergy Unknown Rash Verified 06/16/25 13:16 Sulfa (Sulfonamide Allergy Unknown HIVES Verified 06/16/25 13:16 Antibiotics) Home Medications Medication Instructions Recorded Confirmed Type simvastatin 20 mg tablet (Zocor) 20 mg PO QPM 11/01/06/16/25 History betamethasone, augmented 0.05 % 1 applic topical BID PRN Skin 04/18/21 06/16/25 History topical cream Irritation cholecalciferol (vitamin D3) 50 50 mcg PO QAM 04/18/21 06/16/25 History mcg (2,000 unit) capsule fluticasone propionate 50 2 spray intranasal BID 04/18/21 06/16/25 History mcg/actuation nasal spray,suspension hydrocortisone 2.5 % topical cream 1 applic topical UD PRN Skin 04/18/21 06/16/25 History Irritation levothyroxine 75 mcg capsule 75 mcg PO QAM 04/18/21 06/16/25 History losartan 100 mg tablet 100 mg PO QAM 05/18/21 06/16/25 History meclizine 25 mg tablet 25 mg PO UD PRN Vertigo 05/18/21 06/16/25 History ondansetron 4 mg disintegrating 4 mg PO Q6H PRN Nausea w/ vertigo 05/18/21 06/16/25 History tablet ipratropium bromide 21 mcg (0.03 2 spray intranasal BID Nasal 07/03/21 06/16/25 History %) nasal spray Congestion peg 400-propylene glycol 0.4 %-0.3 1 drp ophthalmic (eye) QAM Dry Eyes 07/03/21 06/16/25 History % eye gel drops (Systane Gel) tamoxifen 20 mg tablet 20 mg PO QAM 12/12/21 06/16/25 History amlodipine 5 mg tablet 5 mg PO QAM 12/21/23 06/16/25 History cetirizine 10 mg tablet (Zyrtec) 10 mg PO QAM 12/21/23 06/16/25 History wdnyvnxgffk-ouakdudbr-sav C-Mn 2 cap PO DAILY 12/21/23 06/16/25 History capsule (Glucosamine-Chondroitin Complex capsule) zzfadcxakbrc-spxfckdu-gvcuqs tablet 1 tab PO DAILY 12/21/23 06/16/25 History pyridoxine (vitamin B6) 100 mg 100 mg PO DAILY 12/21/23 06/16/25 History tablet (Vitamin B-6) tramadol 50 mg tablet 50 mg PO HS PRN Pain 09/14/24 06/16/25 History amoxicillin 500 mg tablet 2,000 mg PO UD PRN prior to dental 04/13/25 06/16/25 History appointments lidocaine 5 % topical patch 1 patch topical UD PRN Pain 04/13/25 06/16/25 History venlafaxine 37.5 mg 37.5 mg PO HS 04/13/25 06/16/25 History capsule,extended release 24 hr (Effexor XR) metoprolol succinate 12.5 mg PO QPM 04/21/25 06/16/25 History ondansetron 4 mg disintegrating 4 mg PO Q8 PRN nausea #20 tabs 05/10/25 06/16/25 Rx tablet tramadol 50 mg tablet 50 - 100 mg (1 - 2 x 50 mg) PO Q6 05/10/25 06/16/25 Rx PRN pain #40 tabs ibuprofen 200 mg capsule 400 mg PO Q6H PRN 06/16/25 06/16/25 History Past Med/Surg History Problem List (Updated 09/17/25 @ 13:40 by Marcos Fine DO) Chest pain Leukocytosis Aftercare following right hip joint replacement surgery Postoperative anemia due to acute blood loss Status post right hip replacement Postoperative hypotension Arthritis of right hip Painful total knee replacement, right Medical History Lymphadenopathy, axillary Trochanteric bursitis, right hip Malignant neoplasm of upper-outer quadrant of right breast in female, estrogen receptor positive (03/29/21) History of blood transfusion during bilat TKA Vertigo occasional, chronic, denies change or worsening-resolves with PT, denies needing meclizine recently Limb alert care status right arm Cholelithiasis pt denies current or hx gallbladder problem. History of vertigo History of sciatica History of fracture left hand, no sx. History of recurrent UTI (urinary tract infection) would only resolve with IV tx in the past. no recent UTI. History of hyperparathyroidism s/p parathyroid adenoma surgery Aortic stenosis TAVR 03/11. Axillary lymphadenopathy hx, removed lymph nodes 10/2024 "non cancerous" History of COVID-19 (05/2024) no hosp; resolved Neuropathy bilat feet; severe, right leg DDD (degenerative disc disease) Overactive bladder Hypothyroidism Breast cancer, right Dx 03/2021 - s/p right breast lumpectomy with sentinel LN biopsy hx 20 sessions radiation-right arm restriction Borderline glaucoma Prediabetes Hypertensive left ventricular hypertrophy, without heart failure Allergic rhinitis Obesity Hyperlipidemia CKD (chronic kidney disease), stage III Hypertension controlled, stable per pt Surgical History History of cardiac cath approx 12/2024, prior to TAVR in february 2025. Akhil. Attempted to do through right wrist, had to go through groin. History of surgery (10/2024) lymph nodes removed, left. non cancerous per pt. History of aortic valve replacement (03/01/25) Akhil - "TAVR" S/P lumpectomy, right breast Right Breast Lumpectomy with Localization using [employer] Marker with Right Bent Lymph Node Biopsy Dr. Helton 05/28/2021 H/O parathyroidectomy (2021) History of hysterectomy History of breast biopsy right History of cataract surgery Bilateral History of reverse total replacement of right shoulder joint (~12/2019) Hx of colonoscopy Hx of abdominal surgery mesenteric cyst removed S/P knee replacement (2010) bilat Family History Sister Breast cancer Mother Breast cancer Pt believes this to be true Pacemaker Grandmother (Maternal) Breast cancer Father , 91yo Pacemaker Osteomyelitis Stroke CHF (congestive heart failure) Sister Diabetes Sister Stroke Hypertension Diabetes Sister Diabetes Daughter No problems noted. 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 No obvious deformities Ext: No Edema cyanosis Skin: Warm, Dry Neuro: AOx3 No focal deficits. Psych: Normal Mood Results & Data Results & Data Vital Signs (Past 12 Hours) Vital Signs Temp Pulse Pulse Resp BP BP Pulse Ox 09/17/25 13:00 79 20 134/88 96 09/17/25 11:25 105 H 20 147/92 H 94 09/17/25 11:22 91 H 09/17/25 10:57 36.6 C 100 H 18 158/90 H 97 O2 Del Method 09/17/25 13:00 Room Air 09/17/25 11:25 Room Air 09/17/25 11:22 09/17/25 10:57 Laboratory Results Abnormal lab results 09/17/25 Range/Units 11:20 [place] # (Auto) 1.02 H (0.11-0.59) K/uL Baso # (Auto) 0.25 H (0.00-0.20) K/uL Sodium 135 L (136-145) mmol/L Glucose 121 H (70-99(Fasting)) mg/dl Diagnostic Findings Chest X-Ray 09/17/25 11:09 XR chest 1V portable CLINICAL HISTORY: chest pain COMPARISON STUDY: 05/14/2025 FINDINGS: Small electronic device overlies the left mid chest. Stable aortic valve repair. Stable mild cardiomegaly without pulmonary vascular congestion. No consolidation or pleural effusion. No pneumothorax. IMPRESSION: No acute findings. ACT 112: Negative or not required by law. Electronically signed by: Mehrdad Shahid M.D. 09/17/2025 11:29 AM Code Status & VTE Plan Code Status full VTE Prophylaxis Plan VTE Prophylaxis will be ordered: Yes
[2025-09-17 14:16] LABS: Appearance Urine Clear (Clear); Bacteria Urine Automated 4+ (None Seen); Cast Urine Automated 0-2 /lpf (0-2); Epithelial Cell Urine Auto 0-2 /hpf (0-2); Glucose Urine UA Negative (Negative); WBC Urine Automated >50 /hpf (0-5)
[2025-09-17] MEDS: OPTIRAY 320 125ml IV ONE (14:46)
--- NOTE | 2025-09-17 15:57 | CT Scan Report ---
EXAM: CT Angiography Chest With Intravenous Contrast INDICATION: Elevated D-dimer. Tachycardia. TECHNIQUE: Axial computed tomographic angiography images of the chest with intravenous contrast. Sagittal and coronal reformatted images were created and reviewed. This CT exam was performed using one or more of the following dose reduction techniques: automated exposure control, adjustment of the mA and/or kV according to patient size, and/or use of iterative reconstruction technique. MIP reconstructed images were created and reviewed. CONTRAST: 119 ml of Optiray 320 was administered intravenously. COMPARISON: 06/17/2024 and 04/22/2025 FINDINGS: Pulmonary arteries: No abnormality noted. No pulmonary embolism. Aorta: Atherosclerotic calcification of the aorta and branches. No aneurysm. Lungs and pleural spaces: Reticulonodular scarring stable. Stable 5 mm noncalcified right lower lobe pulmonary nodule. There is a 4 mm subpleural right upper lobe pulmonary nodule. Stable 2 and 3 mm micronodules superior segment right lower lobe image 75. Stable scattered calcified granulomata noted. No bronchiectasis, honeycombing or reticulation. No pleural effusion or pneumothorax. Heart: Enlarged heart. No right heart strain. Aortic valve prosthetic noted. No pericardial effusion. Bones/joints: No acute or atypical chronic changes. Soft tissues: No abnormality noted. Lymph nodes: There are few prominent bilateral axillary tracheal and lateral aortic nodes. No pathologically enlarged nodes. IMPRESSION: 1. No pulmonary embolus or aortic dissection. 2. Stable chronic interstitial scarring and pulmonary nodules. Recommend follow-up CT sometime June 2026 to confirm nodule stability. ACT 112: N/A Electronically signed by Griselda Sanz 09-17-2025 3:57 PM
[2025-09-17] MEDS ORDERED: ACETAMINOPHEN 325 MG TAB PO PRN (17:18)
[2025-09-17] MEDS ORDERED: ONDANSETRON INJ 2 MG/ML 2 ML VIAL IV PRN (17:18)
[2025-09-17] MEDS: SIMVASTATIN 20 MG TAB PO SCH (20:43)
[2025-09-17] MEDS: METOPROLOL SUCC 25MG EXT REL TAB PO SCH (20:43)
[2025-09-17] MEDS: VENLAFAXINE HCL XR 37.5 MG CAPXR PO SCH (20:43)
[2025-09-17] MEDS: HEPARIN SOD 5,000 UNIT/0.5 ML VIAL SQ SCH (20:44)
--- NOTE | 2025-09-18 05:57 | Electrocardiogram Report ---
Test Reason : Blood Pressure : */* mmHG Vent. Rate : 100 BPM Atrial Rate : 100 BPM P-R Int : 224 ms QRS Dur : 94 ms QT Int : 338 ms P-R-T Axes : 106 -30 30 degrees QTcB Int : 436 ms Sinus rhythm with 1st degree A-V block Left axis deviation Moderate voltage criteria for LVH, may be normal variant ( R in aVL , Scar product ) Cannot rule out Inferior infarct , age undetermined Abnormal ECG When compared with ECG of 14-May-2025 06:36, Premature ventricular complexes are no longer Present Confirmed by Michael Rios ([id number]) on 09/18/2025 5:57:34 AM Referred By: REFERRED SELF Confirmed By: Michael Rios
--- NOTE | 2025-09-18 06:01 | Ultrasound Report ---
EXAM: US venous doppler LE BI CLINICAL HISTORY: elevated ddimer r/o DVT TECHNIQUE: Ultrasound examination of the bilateral lower extremity veins was performed in real time and with duplex imaging. One or more of the following were performed: spectral analysis, resistive index, waveform analysis, and pulsed Doppler. COMPARISON: None. FINDINGS: Normal spontaneous flow is noted in the bilateral common femoral, superficial femoral, popliteal, posterior tibial, and anterior tibial veins. The visualized veins of both lower extremities demonstrate normal compressibility. Normal spontaneous flow is noted in the peroneal veins, with normal compressibility of the left; there is no dedicated compressibility view on the right. No sonographic evidence of acute deep vein thrombosis (DVT) is detected in the visualized veins of both lower extremities. Augmentation: Augmentation of venous flow is noted with distal compression in the common femoral, superficial femoral, and popliteal veins in both lower extremities. Additional Findings: No evidence of intraluminal thrombus. Bilateral prominent inguinal lymph nodes are present, measuring 2 x 1.6 x 0.5 cm on the right and 2.7 x 1.9 x 0.5 cm on the left. IMPRESSION: 1. No sonographic evidence of acute DVT is detected in the bilateral common femoral, superficial femoral, popliteal, posterior tibial, and peroneal veins at the time of examination. 2. Prominent bilateral inguinal lymph nodes, likely reactionary. Disclaimer: DVT could be missed early in the disease when clot burden is minimal. For patients with moderate and high pretest probability of DVT and negative ultrasound, the [employer] clinical guidelines recommend testing with a D-dimer assay or repeat ultrasound in 5-7 days. If symptoms worsen, the Society of radiologists in ultrasound recommends repeating ultrasound even earlier. Electronically signed by Ovi Wing 09-18-2025 06:01 AM
[2025-09-18] MEDS: LEVOTHYROXINE SODIUM 50 MCG TABLET PO SCH (06:08)
[2025-09-18] MEDS: TAMOXIFEN CITRATE 10 MG TABLET PO SCH (08:48)
[2025-09-18] MEDS: LOSARTAN POTASSIUM 50 MG TAB PO SCH (08:48)
--- NOTE | 2025-09-18 10:10 | Cardiology Consultation ---
Date of Consultation September 18, 2025 Assessment & Plan (1) Chest pain: (2) Sinus tachycardia: (3) PVC (premature ventricular contraction): (4) S/P TAVR (transcatheter aortic valve replacement): Plan 80 year old female with past medical history of severe s/p TAVR 03/01/25, normal coronary arteries per cardiac cath 12/2024, HTN, dyslipidemia, hypothyroidism, hx breast cancer s/p lumpectomy and radiation, who presents to ED due to nonexertional chest pain, radiating to left arm and jaw. Improved with nitro. - no recurrent chest pain today, overall feeling well from cardiac standpoint - EKG with no acute ischemic changes, troponin negative x2, low suspicion for ischemia given recent normal cardiac cath - blood pressure elevated - presented with sinus tachycardia, telemetry with sinus rhythm, occasional PVCs - increase metoprolol succinate to 25 mg daily - continue aspirin, losartan, amlodipine, simvastatin - echo read pending - continue to monitor on telemetry - outpatient cardiology follow up Case discussed with attending physician, further recommendations per Dr. Alvarado. I spent a total of 45 minutes on the date of service in preparation, delivery, and documentation of the care provided to this patient excluding any time spent in the performance of separately billed services. This visit was a split-shared visit with the substantial portion of the decision making performed by the supervising threat analyst/billing provider. [facility] History of Present Illness Reason for Consultation: Chest pain Requesting Physician: Jose louisist Attending Physician: Shalom Phelan MD History of Present Illness 80 year old female with past medical history of severe s/p TAVR 03/01/25, normal coronary arteries per cardiac cath 12/2024, HTN, dyslipidemia, hypothyroidism, hx breast cancer s/p lumpectomy and radiation, who presents to ED due to chest pain. States yesterday morning, she awoke with chest pressure, radiated to left arm and jaw. Blood pressure was elevated in 160-180s systolic. Took aspirin 325 mg at home. In ED was given nitro with relief of her symptoms. EKG without acute ischemic changes. Troponin negative x2. BP on arrival 158/90, HR 100. Admitted for further workup. On exam today, she states she currently feels well. Denies recurrent chest pain, palpitations, shortness of breath, edema, lightheadedness. Has been compliant with all medications at home. Was evaluated in clinic 09/12/25 for general cardiology follow up, Zio placed due to tachycardia, currently wearing. Denies tobacco, alcohol, illicit drug use. She is doing virtual cardiac rehab and has been monitoring blood pressure, it has been elevated prior to exercise and after exercise. Denies recent falls, syncope. Denies history of stroke/TIA. Allergies Allergy/AdvReac Type Severity Reaction Status Date / Time olive oil Allergy Severe EDEMA Verified 06/16/25 13:16 FACE/LIPS/TONGUE adhesive Allergy Unknown skin Verified 06/16/25 13:16 irritation cephalexin Allergy Unknown DIFFUSE Verified 06/16/25 13:16 MACULAR PAPULAR RASH erythromycin base Allergy Unknown HIVES Verified 06/16/25 13:16 latex Allergy Unknown Rash Verified 06/16/25 13:16 Sulfa (Sulfonamide Allergy Unknown HIVES Verified 06/16/25 13:16 Antibiotics) Home Medications Medication Instructions Recorded Confirmed Type simvastatin 20 mg tablet (Zocor) 20 mg PO QPM 11/01/19 09/17/25 History betamethasone, augmented 0.05 % 1 applic topical BID PRN Skin 04/18/21 09/17/25 History topical cream Irritation cholecalciferol (vitamin D3) 50 50 mcg PO QAM 04/18/21 09/17/25 History mcg (2,000 unit) capsule fluticasone propionate 50 2 spray intranasal BID 04/18/21 09/17/25 History mcg/actuation nasal spray,suspension hydrocortisone 2.5 % topical cream 1 applic topical UD PRN Skin 04/18/21 09/17/25 History Irritation losartan 100 mg tablet 100 mg PO QAM 05/18/21 09/17/25 History meclizine 25 mg tablet 25 mg PO UD PRN Vertigo 05/18/21 09/17/25 History ondansetron 4 mg disintegrating 4 mg PO Q6H PRN Nausea w/ vertigo 05/18/21 09/17/25 History tablet ipratropium bromide 21 mcg (0.03 2 spray intranasal BID Nasal 07/03/21 09/17/25 History %) nasal spray Congestion peg 400-propylene glycol 0.4 %-0.3 1 drp ophthalmic (eye) QAM Dry Eyes 07/03/21 09/17/25 History % eye gel drops (Systane Gel) tamoxifen 20 mg tablet 20 mg PO QAM 12/12/21 09/17/25 History amlodipine 5 mg tablet 5 mg PO QAM 12/21/23 09/17/25 History cetirizine 10 mg tablet (Zyrtec) 10 mg PO QAM 12/21/23 09/17/25 History [id number]-rbv C-Mn 2 cap PO DAILY 12/21/23 09/17/25 History capsule (Glucosamine-Chondroitin Complex capsule) pyridoxine (vitamin B6) 100 mg 100 mg PO DAILY 12/21/23 09/17/25 History tablet (Vitamin B-6) venlafaxine 37.5 mg 37.5 mg PO HS 04/13/25 09/17/25 History capsule,extended release 24 hr (Effexor XR) tramadol 50 mg tablet 50 - 100 mg (1 - 2 x 50 mg) PO Q6 05/10/25 09/17/25 Rx PRN pain #40 tabs ibuprofen 200 mg capsule 400 mg PO Q6H PRN Pain 06/16/25 09/17/25 History acetaminophen 650 mg 650 mg PO Q8H PRN Pain 09/17/25 09/17/25 History tablet,extended release aspirin 81 mg tablet 81 mg PO DAILY 09/17/25 09/17/25 History levothyroxine 50 mcg tablet 50 mcg PO DAILY 09/17/25 09/17/25 History Patient History Medical History Lymphadenopathy, axillary Trochanteric bursitis, right hip Malignant neoplasm of upper-outer quadrant of right breast in female, estrogen receptor positive (03/29/21) History of blood transfusion during bilat TKA Vertigo occasional, chronic, denies change or worsening-resolves with PT, denies needing meclizine recently Limb alert care status right arm Cholelithiasis pt denies current or hx gallbladder problem. History of vertigo History of sciatica History of fracture left hand, no sx. History of recurrent UTI (urinary tract infection) would only resolve with IV tx in the past. no recent UTI. History of hyperparathyroidism s/p parathyroid adenoma surgery Aortic stenosis TAVR 03/11. Axillary lymphadenopathy hx, removed lymph nodes 10/2024 "non cancerous" History of COVID-19 (05/2024) no hosp; resolved Neuropathy bilat feet; severe, right leg DDD (degenerative disc disease) Overactive bladder Hypothyroidism Breast cancer, right Dx 03/2021 - s/p right breast lumpectomy with sentinel LN biopsy hx 20 sessions radiation-right arm restriction Borderline glaucoma Prediabetes Hypertensive left ventricular hypertrophy, without heart failure Allergic rhinitis Obesity Hyperlipidemia CKD (chronic kidney disease), stage III Hypertension controlled, stable per pt Surgical History History of cardiac cath approx 12/2024, prior to TAVR in february 2025. [place]. Attempted to do through right wrist, had to go through groin. History of surgery (10/2024) lymph nodes removed, left. non cancerous per pt. History of aortic valve replacement (03/01/25) Akhil - "TAVR" S/P lumpectomy, right breast Right Breast Lumpectomy with Localization using Cheryl Lead Network Engineer Marker with Right [place] Lymph Node Biopsy Dr. Helton 05/28/2021 H/O parathyroidectomy (2021) History of hysterectomy History of breast biopsy right History of cataract surgery Bilateral History of reverse total replacement of right shoulder joint (~12/2019) Hx of colonoscopy Hx of abdominal surgery mesenteric cyst removed S/P knee replacement (2010) bilat Family History Sister Breast cancer Mother Breast cancer Pt believes this to be true Pacemaker Grandmother (Maternal) Breast cancer Father , 91yo Pacemaker Osteomyelitis Stroke CHF (congestive heart failure) Sister Diabetes Sister Stroke Hypertension Diabetes Sister Diabetes Daughter No problems noted. 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 PULMONARY: No cough, sputum, or hemoptysis, No wheezing, No shortness of breath and No recent change in breathing. CARDIOVASCULAR: No chest pain, No dyspnea on exertion, No edema, No palpitations and No syncope. GASTROINTESTINAL: No abdominal pain, No change in bowel habits, No significant heartburn, No nausea, No vomiting, No diarrhea, No constipation, No blood in stools or black tarry stools. No dysphagia. HEMATOLOGIC: No abnormal bleeding and No bruising. NEUROLOGICAL: Normal balance, No headaches and No weakness. Physical Exam Physical Exam: General: No acute distress. A+Ox3. HEENT: Normocephalic. Atraumatic. PERRL. EOMI. Conjunctiva and sclera clear. NECK: No carotid bruits. No JVD. Carotid upstrokes are brisk. Heart: RRR. S1 and S2 noted. 1/6 systolic murmur. No rubs or gallops. PMI non displaced. Lungs: Clear to auscultation. No wheezes. No rhonchi. No rales. Abdomen: Normal bowel sounds. Soft. Nontender. No masses or organomegaly. No abdominal bruits. Extremities: No edema. No clubbing or cyanosis. Pulses: radial=2/4, posterior tibial=2/4, dorsalis pedis = 2/4. NEURO: No focal deficits. PSYCH: Appropriate affect and insight. Results & Data Vital Signs (Past 12 Hours) Vital Signs Temp Pulse Pulse Resp BP Pulse Ox O2 Del Method 09/18/25 07:28 36.9 C 83 16 156/79 H 95 Room Air 09/18/25 07:08 75 09/18/25 04:00 36.9 C 81 18 134/80 94 Room Air 09/17/25 23:23 36.7 C 76 18 158/81 H 93 Room Air Laboratory Results Cardiac Enzymes 09/17/25 09/17/25 Range/Units 11:20 17:52 Troponin I High Sens 5.9 9.1 (0-14) pg/ml CBC 09/17/25 Range/Units 11:20 WBC 7.36 (4.8-10.8) K/ul RBC 4.75 (4.20-5.40) M/uL Hgb 13.1 (12.0-16.0) g/dl Hct 40.6 (37.0-47.0) % Plt Count 172 (130-400) K/uL Neut # (Auto) 4.49 (1.40-6.50) K/uL Lymph # (Auto) 1.29 (1.20-3.40) K/uL [place] # (Auto) 1.02 H (0.11-0.59) K/uL Eos # (Auto) 0.30 (0.00-0.50) K/uL Baso # (Auto) 0.25 H (0.00-0.20) K/uL Comprehensive Metabolic Panel 09/17/25 Range/Units 11:20 Sodium 135 L (136-145) mmol/L Potassium 4.1 (3.5-5.1) mmol/L Chloride 99 (98-107) mmol/L Carbon Dioxide 28 (21-32) mmol/L BUN 15 (6-23) mg/dl Creatinine 0.83 (0.6-1.2) mg/dl Glucose 121 H (70-99(Fasting)) mg/dl Calcium 9.3 (8.6-10.3) mg/dl Intake and Output 09/17/25 09/18/25 09/18/25 23:59 06:59 14:59 Intake Total Balance Intake: Oral Other: Weight Weight Measurement Method Diagnostic Findings EKG 09/17/25: sinus rhythm with 1st degree AV block, 100 bpm PG Care Time/CCT Total # of Minutes Spent Total Time Spent with Patient: Total time spent is greater than 50% in coordination of care (as documented) at patient's floor/unit and/or counseling patient: [place] [address] IN/OBS CONSULT LVL 5,80M Patient Type New Medical Decision Making High Complexity Diagnoses Chest pain R07.9 Chest pain type: unspecified Sinus tachycardia R00.0 PVC (premature ventricular contraction) I49.3 S/P TAVR (transcatheter aortic valve replacement) Z95.2 (1) Chest pain Chest pain type: unspecified Qualified Code(s): R07.9 - Chest pain, unspecified
[2025-09-18] MEDS: ASPIRIN 81 MG ECTAB PO SCH (11:59)
[2025-09-18] MEDS: CIPROFLOXACIN 500 MG TAB PO SCH (12:18)
--- NOTE | 2025-09-18 14:07 | XCELERA ---
[id number] \\[id number]
--- NOTE | 2025-09-18 14:15 | Hospitalist Progress Note ---
Date of Service September 18, 2025 Assessment & Plan (1) Chest pain: (2) Aortic stenosis: Plan 80F with PMH severe s/p TAVR 03/01/25, HTN, HLD, hypothyroidism, chronic vertigo who presents with chest pain. Chest pain PVCs H/O TAVR Elevated D-dimer Occasional PVCs --CTA:No pulmonary embolus or aortic dissection. Stable chronic interstitial scarring and pulmonary nodules. Recommend follow-up CT sometime June 2026 to confirm nodule stability. --Venous Doppler: No sonographic evidence of acute DVT is detected in the bilateral common femoral, superficial femoral, popliteal, posterior tibial, and peroneal veins at the time of examination. -- Troponin x 2 negative -- Last cardiac cath 12/2024: No significant coronary artery disease per record --ZIO monitor in place --ECHO: pending --Check TSH Continue aspirin, statin, amlodipine and losartan Metoprolol succinate dose increased to 25 mg daily Appreciate cardiology input Asymptomatic bacteriuria Urine culture pending Patient asymptomatic Will hold antibiotics for now Pulmonary nodules Inguinal lymphadenopathy Incidental findings on CT scan Follow-up as outpatient Severe aortic stenosis s/p TAVR -Currently followed by Jose and is in cardiac rehab Continue home medications HTN Continue amlodipine, losartan, metoprolol Monitor blood pressure Hypothyroidism Update TSH Continue levothyroxine HLD continue statin DVT Px: Heparin SQ CODE STATUS Full code Admission and Anticipated Discharge Date Admission Date: September 17, 2025 Subjective Patient is seen and examined at bedside Chest pain resolved Denies any dyspnea, nausea, vomiting, abdominal pain, dizziness, dysuria Review of Systems Review of Systems: All systems reviewed & are unremarkable except as noted in Subjective Physical Exam Physical Exam: Physical Exam: Vitals signs as noted above General Appearance:Moderately built and nourished, no apparent distress Head: normocephalic, Atraumatic Eyes: normal inspection, EOMI Neck: supple, Trachea midline Respiratory/Chest: Normal breath sounds, CTA, No accessory muscle use Cardiovascular: S1, S2, faint murmur,+ ZIO monitor Abdomen/GI:Soft, Non tender, Bowel sounds present Extremities/Musculoskeletal:normal inspection, trace pedal edema Neurologic/Psych:AAOX3, grossly no focal neurological deficits Skin: normal color, warm Results & Data Results & Data Vital Signs (Past 12 Hours) Vital Signs Temp Pulse Pulse Resp BP Pulse Ox O2 Del Method 09/18/25 11:38 36.7 C 98 H 17 148/85 H 95 Room Air 09/18/25 07:28 36.9 C 83 16 156/79 H 95 Room Air 09/18/25 07:08 75 09/18/25 04:00 36.9 C 81 18 134/80 94 Room Air (1) Chest pain Chest pain type: unspecified Qualified Code(s): R07.9 - Chest pain, unspecified
[2025-09-18] MEDS: AMOXICILLIN/CLAVULANATE 500 MG TAB PO SCH (17:32)
--- NOTE | 2025-09-18 19:28 | Communication Note ---
Date of Service: September 18, 2025 Patient with pruritus and red hands few hours after getting first dose of Augmentin for UTI. No chest pain or SOB symptoms. AP Augmentin hypersensitivity Benadryl 1 dose now Ertapenem in place of Augmentin until final urine CS resulted (History ESBL UTI on review of outpatient records.)
[2025-09-18] MEDS: diphenhydrAMINE Capsule 25 MG CAP PO ONE (19:39)
[2025-09-18] MEDS: METOPROLOL SUCC 25MG EXT REL TAB PO SCH (19:41)
[2025-09-18] MEDS: ERTAPENEM 1000MG 1,000 MG/10 ML SYR IV SCH (20:27)
[2025-09-18] MEDS ORDERED: PROMETHAZINE 6.25 MG/50.25 ML BAG IV PRN (22:08)
[2025-09-18] MEDS: PROMETHAZINE 6.25 MG/50.25 ML BAG IV STA (22:39)
[2025-09-19] MEDS: ONDANSETRON INJ 2 MG/ML 2 ML VIAL IV STA (03:00)
[2025-09-19 05:54] LABS: Hematocrit (blood only) 37.0 % (37.0-47.0); Hemoglobin 12.2 g/dl (12.0-16.0); Mean Corpuscular Hemoglobin 27.9 pg (25.0-34.0); Mean Corpuscular Volume 84.5 fL (80.0-100.0); Platelet Count 174 K/uL (130-400); RDW Standard Deviation 44.3 fL (36.4-46.3); Red Blood Count 4.38 M/uL (4.20-5.40); White Blood Count 18.06 K/ul (4.8-10.8)
[2025-09-19 06:15] LABS: Anion Gap 7.0 (3-11); Blood Urea Nitrogen 20.0 mg/dl (6-23); Calcium 8.9 mg/dl (8.6-10.3); Carbon Dioxide 28.0 mmol/L (21-32); Chloride 98.0 mmol/L (98-107); Creatinine Clr Calc Pharmacy 45.0 ml/min; Glucose 131.0 mg/dl (70-99(Fasting)); Magnesium 2.0 mg/dl (1.7-2.4); Potassium 4.5 mmol/L (3.5-5.1); Sodium 133.0 mmol/L (136-145)
[2025-09-19 06:30] LABS: Thyroid Stimulating Hormone 0.035 uIu/ml (0.300-4.500)
[2025-09-19 07:04] LABS: T4 Free Thyroxine 0.95 ng/dl (0.61-1.60)
--- NOTE | 2025-09-19 09:08 | Cardiology Progress Note ---
Date of Service September 19, 2025 Assessment & Plan (1) Chest pain: (2) Sinus tachycardia: (3) PVC (premature ventricular contraction): (4) S/P TAVR (transcatheter aortic valve replacement): Plan 80 year old female with past medical history of severe s/p TAVR 03/01/25, normal coronary arteries per cardiac cath 12/2024, HTN, dyslipidemia, hypothyroidism, hx breast cancer s/p lumpectomy and radiation, who presents to ED due to nonexertional chest pain, radiating to left arm and jaw. Improved with nitro. patient with markedly elevated blood pressures at time of arrival. Plan 09/19/25: -patient remains chest pain free, doing well from a cardiac perspective. -No acute EKG changes. Troponin negative x2 and recent cardiac cath in Dec 2024 demonstrated normal coronaries suggesting a low suspicion for ischemia -Blood pressures were markedly elevated upon arrival and pain resolved as pressures trending down suggestive hypertensive heart disease component. -Continue Amlodipine, Losartan, and metoprolol succinate (this was increased from 12.5mg to 25mg Daily) -heart rates trending in the 80's on telemetry with no arrhythmia or ectopy. -Continue ASA 81mg and Simvastatin as per home regimen. -Echocardiogram demonstrates preserved LVEF, presence of bioprosthetic aortic valve with normal function. -Patient currently on IV antibiotics per primary team for UTI, continued management per primary team -When patient is appropriate for discharge per primary team. follow up with cardiology as scheduled. Case has been discussed with Dr. Daniel. Further recommendations regarding plan of care as per his assessment. TERRA Romero [facility] Admission and Anticipated Discharge Date Admission Date: September 18, 2025 Supervising Physician Co-Signing Physician Notes Attending attestation: Case reviewed with the advanced practitioner. I have personally performed a history and physical examination on the patient. I have reviewed the advanced practitioner's documentation on the date of service referenced in note, and I agree with, and take responsibility for the plan of care. Subjective: Patient seen cardiology follow-up. No complaint at present. Blood pressure improved. Telemetry reveals sinus rhythm with first-degree AV block. Cardiovascular: Regular rhythm, no murmurs Exam: Cardiovascular: Regular rhythm, no murmurs, no edema Pulmonary: Lungs clear to auscultation bilaterally Data: Urine culture notable for E. coli Impression/ Plan: Chest pain, not felt to be anginal in character, cardiac catheterization within the last calendar year without obstructive CAD Hypertension UTI * Continue current medications including amlodipine, losartan, metoprolol, simvastatin. * Continue ertapenem * Continue aspirin * Continue subcutaneous heparin for DVT prophylaxis. DO Elba Holland 09/19/2025: Patient seen and examined in follow up today. Feeling well from a cardiac perspective. No recurrence of chest pain, no shortness of breath, no pre-syncope, syncope or edema. Labs, vitals, diagnostics, telemetry and documentation reviewed. Telemetry reviewed showing SR with 1st degree AV block rate 80's. Patient has a home list of her blood pressure readings which were markedly elevated. BP at last office visit (09/12/25) was well controlled. Blood pressure upon initial arrival well above target, now controlled. She is currently being treated for a UTI by primary team and there were concerns of antibiotic intolerance s/t vomiting and a rash. Her antibiotic has now been switched to Ertapenem. Review of Systems Review of Systems: All systems reviewed & are unremarkable except as noted in HPI & below Physical Exam Constitutional: well developed and well nourished; no acute distress Neck: normal visual inspection and trachea midline Respiratory: normal respiratory effort, lungs clear to auscultation Cardiovascular: RRR, no murmur, no edema Heart Sounds: normal S1 and normal S2; no murmur Vessels: dorsalis pedis pulses present; no JVD Extremities: no edema Skin: normal turgor Psychiatric: A+Ox3, euthymic affect Results & Data Vital Signs (Past 12 Hours) Vital Signs Temp Pulse Pulse Resp BP Pulse Ox O2 Del Method 09/19/25 07:53 36.9 C 93 H 20 113/74 93 Room Air 09/19/25 05:47 85 09/19/25 04:00 36.5 C 85 18 105/68 92 Room Air 09/18/25 22:11 36.8 C 104 H 20 148/86 H 95 Room Air 09/18/25 22:08 120 H Laboratory Results CBC 09/19/25 Range/Units 05:28 WBC 18.06 H (4.8-10.8) K/ul RBC 4.38 (4.20-5.40) M/uL Hgb 12.2 (12.0-16.0) g/dl Hct 37.0 (37.0-47.0) % Plt Count 174 (130-400) K/uL Comprehensive Metabolic Panel 09/19/25 Range/Units 05:28 Sodium 133 L (136-145) mmol/L Potassium 4.5 (3.5-5.1) mmol/L Chloride 98 (98-107) mmol/L Carbon Dioxide 28 (21-32) mmol/L BUN 20 (6-23) mg/dl Creatinine 1.05 (0.6-1.2) mg/dl Glucose 131 H (70-99(Fasting)) mg/dl Calcium 8.9 (8.6-10.3) mg/dl Intake and Output 09/18/25 09/19/25 09/19/25 22:59 06:59 14:59 Intake Total 50.25 / 290.25 Balance 50.25 / 290.25 Intake: IV 50.25 / 50.25 Promethazine 6.25 mg In 50.25 50.25 / 50.25 ml @ 201 mls/hr IV NOW STA Rx#: [id number] Other: # Unmeasured Voids 1 Weight 83.5 kg Weight Measurement Method Built in [facility] Coding [place] [address] SUB INP/OBS CARE 3/50MIN Patient Type Established Diagnoses Chest pain R07.9 Chest pain type: unspecified Sinus tachycardia R00.0 PVC (premature ventricular contraction) I49.3 S/P TAVR (transcatheter aortic valve replacement) Z95.2 (1) Chest pain Chest pain type: unspecified Qualified Code(s): R07.9 - Chest pain, unspecified
--- NOTE | 2025-09-19 15:56 | Hospitalist Progress Note ---
Date of Service September 19, 2025 Assessment & Plan (1) Chest pain: (2) Aortic stenosis: Plan 80F with PMH severe s/p TAVR 03/01/25, HTN, HLD, hypothyroidism, chronic vertigo who presents with chest pain. Chest pain PVCs H/O TAVR Elevated D-dimer Occasional PVCs --CTA:No pulmonary embolus or aortic dissection. Stable chronic interstitial scarring and pulmonary nodules. Recommend follow-up CT sometime June 2026 to confirm nodule stability. --Venous Doppler: No sonographic evidence of acute DVT is detected in the bilateral common femoral, superficial femoral, popliteal, posterior tibial, and peroneal veins at the time of examination. -- Troponin x 2 negative -- Last cardiac cath 12/2024: No significant coronary artery disease per record --ZIO monitor in place --ECHO: EF 60 to 65%. Right ventricle systolic function is normal. Bioprosthetic aortic valve. Aortic stenosis is absent. No significant aortic regurgitation. Mild mitral regurgitation. -Continue aspirin, statin, amlodipine and losartan Metoprolol succinate dose increased to 25 mg daily Appreciate cardiology input Chest pain resolved Urinary tract infection--POA Drug reaction to penicillin --Urine culture growing E. coli Continue IV ertapenem for now Pulmonary nodules--chronic per patient Inguinal lymphadenopathy Incidental findings on CT scan Follow-up as outpatient Severe aortic stenosis s/p TAVR -Currently followed by Jose and is in cardiac rehab Continue home medications HTN Continue amlodipine, losartan, metoprolol Monitor blood pressure Hypothyroidism TSH 0.03, normal free T4 TSH better when compared to prior study Continue levothyroxine Needs repeat thyroid function test as outpatient HLD continue statin DVT Px: Heparin SQ CODE STATUS Full code Disposition Plan to discharge home as able Admission and Anticipated Discharge Date Admission Date: September 18, 2025 Subjective Patient is seen and examined at bedside Patient had a rash secondary to Augmentin overnight which is improving No recurrence of chest pain today Discussed with cardiology today Subjectively feels well Denies any dyspnea, nausea, vomiting, abdominal pain, dizziness, dysuria Review of Systems Review of Systems: All systems reviewed & are unremarkable except as noted in Subjective Physical Exam Physical Exam: Physical Exam: Vitals signs as noted above General Appearance:Moderately built and nourished, no apparent distress Head: normocephalic, Atraumatic Eyes: normal inspection, EOMI Neck: supple, Trachea midline Respiratory/Chest: Normal breath sounds, CTA, No accessory muscle use Cardiovascular: S1, S2, faint murmur,+ ZIO monitor Abdomen/GI:Soft, Non tender, Bowel sounds present Extremities/Musculoskeletal:normal inspection, trace pedal edema Neurologic/Psych:AAOX3, grossly no focal neurological deficits Skin: normal color, warm Results & Data Results & Data Vital Signs (Past 12 Hours) Vital Signs Temp Pulse Pulse Resp BP Pulse Ox O2 Del Method 09/19/25 15:34 36.7 C 97 H 20 126/77 93 Room Air 09/19/25 13:09 105 H 09/19/25 11:03 36.8 C 104 H 18 107/70 92 Room Air 09/19/25 07:53 36.9 C 93 H 20 113/74 93 Room Air 09/19/25 05:47 85 09/19/25 04:00 36.5 C 85 18 105/68 92 Room Air Laboratory Results Short CBC 09/19/25 Range/Units 05:28 WBC 18.06 H (4.8-10.8) K/ul Hgb 12.2 (12.0-16.0) g/dl Hct 37.0 (37.0-47.0) % Plt Count 174 (130-400) K/uL BMP 09/19/25 05:28 Sodium 133 L Potassium 4.5 Chloride 98 Carbon Dioxide 28 BUN 20 Creatinine 1.05 Glucose 131 H Calcium 8.9 (1) Chest pain Chest pain type: unspecified Qualified Code(s): R07.9 - Chest pain, unspecified
[2025-09-20 07:00] LABS: Hematocrit (blood only) 36.6 % (37.0-47.0); Hemoglobin 11.7 g/dl (12.0-16.0); Mean Corpuscular Hemoglobin 27.3 pg (25.0-34.0); Mean Corpuscular Volume 85.5 fL (80.0-100.0); Platelet Count 158 K/uL (130-400); RDW Standard Deviation 45.3 fL (36.4-46.3); Red Blood Count 4.28 M/uL (4.20-5.40); White Blood Count 11.86 K/ul (4.8-10.8)
[2025-09-20 07:26] LABS: Anion Gap 6.0 (3-11); Blood Urea Nitrogen 20.0 mg/dl (6-23); Calcium 8.8 mg/dl (8.6-10.3); Carbon Dioxide 28.0 mmol/L (21-32); Chloride 100.0 mmol/L (98-107); Creatinine Clr Calc Pharmacy 54.0 ml/min; Glucose 100.0 mg/dl (70-99(Fasting)); Potassium 4.1 mmol/L (3.5-5.1); Sodium 134.0 mmol/L (136-145)
--- NOTE | 2025-09-20 09:46 | XRay Report ---
XR ankle RT 2V CLINICAL HISTORY: Ankle pain COMPARISON: 08/23/2024 FINDINGS: There are minimal degenerative changes at the ankle. No fracture or dislocation seen. Ther e is a moderate calcaneal spur. Stable tiny exostosis dorsal distal neck of the talus. There are mode rate degenerative changes at the midfoot. IMPRESSION: No fracture seen. ACT 112: Negative or not required by law. Electronically signed by: Mehrdad Shahid M.D. 09/20/2025 9:45 AM
[2025-09-20 09:54] LABS: Uric Acid 6.3 mg/dl (2.6-7.2)
--- NOTE | 2025-09-20 10:21 | Cardiology Progress Note ---
Date of Service September 20, 2025 Assessment & Plan (1) Chest pain: (2) Sinus tachycardia: (3) PVC (premature ventricular contraction): (4) S/P TAVR (transcatheter aortic valve replacement): Plan 80 year old female with past medical history of severe s/p TAVR 03/01/25, normal coronary arteries per cardiac cath 12/2024, HTN, dyslipidemia, hypothyroidism, hx breast cancer s/p lumpectomy and radiation, who presents to ED due to nonexertional chest pain, radiating to left arm and jaw. Improved with nitro. patient with markedly elevated blood pressures at time of arrival. Plan 09/20/25: -patient remains chest pain free, doing well from a cardiac perspective. -No acute EKG changes. Troponin negative x2 and recent cardiac cath in Dec 2024 demonstrated normal coronaries suggesting a low suspicion for ischemia. -Blood pressures were markedly elevated upon arrival and pain resolved as pressures trending down suggestive hypertensive heart disease component. -Continue Amlodipine, Losartan, and metoprolol succinate (increased dose) -heart rates trending in the 90's with occasional PAC's, blocked PAC's and a 10beat run of non-sustained VT at 1656 09/19/25. Patient remained asymptomatic. LV is hyperdynamic in the setting of post TAVR and acute UTI. Increase metoprolo l succinate to 50mg PO Daily -Continue ASA 81mg and Simvastatin as per home regimen. -Patient currently on IV antibiotics per primary team for UTI, continued management per primary team -Patient endorses right ankle pain/swelling, primary team is aware and addressing -When patient is appropriate for discharge per primary team. follow up with cardiology as scheduled. Case has been discussed with Dr. Alfonso. Further recommendations regarding plan of care as per his assessment. I spent a total of 30 minutes on the date of service in preparation, delivery, documentation of the care provided to the patient excluding any time spent in the performance of separately billed services. TERRA Romero [facility] Admission and Anticipated Discharge Date Admission Date: September 18, 2025 Supervising Physician Co-Signing Physician Notes Patient was personally seen. Full assessment and plan as outlined by advanced provider above. 80-year-old female with prior valvular heart disease status post TAVR 03/01/2025, normal coronaries normal LV systolic function admitted with hypertension, hypertensive urgency, sinus tachycardia. Course being complicated by urinary tract infection Telemetry with sinus and sinus tachycardia occasional ventricular ectopy and a single 10 beat run of monomorphic ventricular tachycardia yesterday. All asymptomatic EKG sinus rhythm with first-degree AV block rate [address] segment 100s or Q waves Echocardiogram this admission with normal LV systolic function and normally functioning bioprosthetic aortic valve Recommendations: As outlined above we will titrate beta-adolfo higher given hyperdynamic function post TAVR/aortic valve replacement Subjective 09/20/2025: Patient seen and examined in follow up today. Feeling well from a cardiac perspective. Denies any chest pain, pressure, palpitations, shortness of breath, PND, pre-syncope, syncope or edema. Endorses right ankle pain and swelling. Primary team is aware. Labs, vitals, diagnostics, telemetry and documentation reviewed. Telemetry reviewed showing SR, rates in the 90's. There is notation of occasional PAC's, rare blocked PAC's and also notation of a 10 beat run of VT at 1656. Patient denied any symptoms with the event. Review of Systems Review of Systems: All systems reviewed & are unremarkable except as noted in HPI & below Physical Exam Constitutional: well developed and well nourished; no acute distress Neck: normal visual inspection and trachea midline Respiratory: normal respiratory effort, lungs clear to auscultation Cardiovascular: RRR, no murmur, no edema Heart Sounds: normal S1 and normal S2; no murmur Vessels: dorsalis pedis pulses present; no JVD Extremities: no edema Skin: normal turgor Psychiatric: A+Ox3, euthymic affect Results & Data Vital Signs (Past 12 Hours) Vital Signs Temp Pulse Pulse Resp BP Pulse Ox O2 Del Method 09/20/25 10:18 37.3 C 86 16 122/72 94 Room Air 09/20/25 07:46 36.9 C 82 16 126/75 95 Room Air 09/20/25 05:34 85 09/20/25 04:00 36.5 C 81 18 146/79 H 93 Room Air 09/20/25 00:00 89 09/19/25 23:16 36.8 C 88 18 141/76 H 93 Room Air Laboratory Results CBC 09/20/25 Range/Units 05:37 WBC 11.86 H (4.8-10.8) K/ul RBC 4.28 (4.20-5.40) M/uL Hgb 11.7 L (12.0-16.0) g/dl Hct 36.6 L (37.0-47.0) % Plt Count 158 (130-400) K/uL Comprehensive Metabolic Panel 09/20/25 Range/Units 05:37 Sodium 134 L (136-145) mmol/L Potassium 4.1 (3.5-5.1) mmol/L Chloride 100 (98-107) mmol/L Carbon Dioxide 28 (21-32) mmol/L BUN 20 (6-23) mg/dl Creatinine 0.87 (0.6-1.2) mg/dl Glucose 100 H (70-99(Fasting)) mg/dl Calcium 8.8 (8.6-10.3) mg/dl Intake and Output 09/19/25 09/20/25 09/20/25 22:59 06:59 14:59 Other: Weight 83 kg Weight Measurement Method Built in [facility] PG Care Time/CCT Total # of Minutes Spent Total Time Spent with Patient: Total time spent is greater than 50% in coordination of care (as documented) at patient's floor/unit and/or counseling patient: Coding Level of Care Code 92657 SUB INP/OBS CARE 3/50MIN Diagnoses Chest pain R07.9 Chest pain type: unspecified Sinus tachycardia R00.0 PVC (premature ventricular contraction) I49.3 S/P TAVR (transcatheter aortic valve replacement) Z95.2 Time Spent (min) 50 (1) Chest pain Chest pain type: unspecified Qualified Code(s): R07.9 - Chest pain, unspecified
--- NOTE | 2025-09-20 12:07 | Electrocardiogram Report ---
Test Reason : Blood Pressure : */* mmHG Vent. Rate : 84 BPM Atrial Rate : 84 BPM P-R Int : 212 ms QRS Dur : 86 ms QT Int : 366 ms P-R-T Axes : 14 -22 34 degrees QTcB Int : 432 ms Sinus rhythm with sinus arrhythmia with 1st degree A-V block Otherwise normal ECG When compared with ECG of 17-Sep-2025 11:10, No significant change was found Confirmed by Td Miranda [id number]) on 09/20/2025 12:06:47 PM Referred By: REFERRED SELF Confirmed By: Td Miranda
--- NOTE | 2025-09-20 14:24 | Hospitalist Progress Note ---
Date of Service September 20, 2025 Assessment & Plan (1) Chest pain: (2) Aortic stenosis: Plan 80F with PMH severe s/p TAVR 03/01/25, HTN, HLD, hypothyroidism, chronic vertigo who presents with chest pain. Chest pain--resolved PVCs/NSVT H/O TAVR Elevated D-dimer --CTA:No pulmonary embolus or aortic dissection. Stable chronic interstitial scarring and pulmonary nodules. Recommend follow-up CT sometime June 2026 to confirm nodule stability. --Venous Doppler: No sonographic evidence of acute DVT is detected in the bilateral common femoral, superficial femoral, popliteal, posterior tibial, and peroneal veins at the time of examination. -- Troponin x 2 negative -- Last cardiac cath 12/2024: No significant coronary artery disease per record --ZIO monitor in place --ECHO: EF 60 to 65%. Right ventricle systolic function is normal. B ioprosthetic aortic valve. Aortic stenosis is absent. No significant aortic regurgitation. Mild mitral regurgitation. -Continue aspirin, statin, amlodipine and losartan Metoprolol succinate dose Increased to 50 mg daily Appreciate cardiology input Urinary tract infection--POA Drug reaction to penicillin Patient allergic to cephalosporin, Bactrim --Urine culture growing E. coli Completed 3-day course of IV ertapenem today Right ankle pain/tenderness ? Gout Ambulatory dysfunction --Ankle x-ray no fracture -- ESR 2, CRP 1.0, uric acid 6.3 Received a dose of IV Toradol Await orthopedics input PT OT as able Pulmonary nodules--chronic per patient Inguinal lymphadenopathy Incidental findings on CT scan Follow-up as outpatient Severe aortic stenosis s/p TAVR -Currently followed by Jose and is in cardiac rehab Continue home medications HTN Continue amlodipine, losartan, metoprolol Monitor blood pressure Hypothyroidism TSH 0.03, normal free T4 TSH better when compared to prior study Continue levothyroxine Needs repeat thyroid function test as outpatient HLD continue statin DVT Px: Heparin SQ CODE STATUS Full code Disposition PT OT prior to discharge Admission and Anticipated Discharge Date Admission Date: September 18, 2025 Subjective Patient is seen and examined at bedside States having significant right ankle pain causing difficulty to ambulate No other complaints today Discussed with cardiology Also updated patient's family at bedside Denies any chest pain, dyspnea, nausea, vomiting, abdominal pain, dizziness, dysuria Review of Systems Review of Systems: All systems reviewed & are unremarkable except as noted in Subjective Physical Exam Physical Exam: Physical Exam: Vitals signs as noted above General Appearance:Moderately built and nourished, no apparent distress Head: normocephalic, Atraumatic Eyes: normal inspection, EOMI Neck: supple, Trachea midline Respiratory/Chest: Normal breath sounds, CTA, No accessory muscle use Cardiovascular: S1, S2, faint murmur,+ ZIO monitor Abdomen/GI:Soft, Non tender, Bowel sounds present Extremities/Musculoskeletal:normal inspection, trace pedal edema, right ankle tender Neurologic/Psych:AAOX3, grossly no focal neurological deficits Skin: normal color, warm Results & Data Results & Data Vital Signs (Past 12 Hours) Vital Signs Temp Pulse Pulse Resp BP Pulse Ox O2 Del Method 09/20/25 12:59 105 H 09/20/25 10:18 37.3 C 86 16 122/72 94 Room Air 09/20/25 07:46 36.9 C 82 16 126/75 95 Room Air 09/20/25 05:34 85 09/20/25 04:00 36.5 C 81 18 146/79 H 93 Room Air Laboratory Results Short CBC 09/20/25 Range/Units 05:37 WBC 11.86 H (4.8-10.8) K/ul Hgb 11.7 L (12.0-16.0) g/dl Hct 36.6 L (37.0-47.0) % Plt Count 158 (130-400) K/uL BMP 09/20/25 05:37 Sodium 134 L Potassium 4.1 Chloride 100 Carbon Dioxide 28 BUN 20 Creatinine 0.87 Glucose 100 H Calcium 8.8 (1) Chest pain Chest pain type: unspecified Qualified Code(s): R07.9 - Chest pain, unspecified
[2025-09-20] MEDS: KETOROLAC TROMETHAMINE 15 MG/ML VIAL IV ONE (14:40)
--- NOTE | 2025-09-20 15:38 | Orthopedic Consultation ---
Date of Service September 20, 2025 Assessment & Plan (1) Gout of right ankle: Plan 80-year-old female with complex medical history experiencing new onset ankle pain for the past day. Labs and x-ray were reviewed. There is no indication of fracture on x-rays. Due to the rapid onset and atraumatic nature of the pain, there is likely she is experiencing an acute gout flare. She just received a dose of IV Toradol shortly before consultation. We will see if that starts to improve her symptoms. If no improvement, we recommend a trial of methylprednisolone taper if this will not interfere with her current medications and treatment plan. We will forego joint aspiration and fluid analysis at this time. History of Present Illness Reason for Consultation: Right ankle pain for 1 day. Requesting Physician: . Attending Physician: Shalom Phelan MD Ms. Zimmerman is a very pleasant 80F with PMH severe s/p TAVR 03/01/25, HTN, HLD, hypothyroidism, chronic vertigo who presents with chest pain. Patient awoke on 09/17 at 0930 with dizziness and then by 10 AM developed substernal chest pressure with pain radiating to jaw and L arm. She checked her BP and it was SBP 190s. Her immediately brought her to the ED. Chest pain was relieved by nitro in ED. Denies similar symptoms in the past. She is currently symptom free. She took 325 ASA at home prior to going to the ED. Patient denies F/C, CP, palpitations, SOB, dyspnea, abd pain, N/V/D On 09/19 she started to develop pain in her right ankle. This morning she was not able to stand without excruciating pain. The pain is elicited with any motion of the ankle. She says the pain is greater along the lateral malleolus. Allergies Allergy/AdvReac Type Severity Reaction Status Date / Time olive oil Allergy Severe EDEMA Verified 06/16/25 13:16 FACE/LIPS/TONGUE amoxicillin [From Augmentin] Allergy Mild pruritus Verified 09/18/25 19:51 clavulanic acid Allergy Mild pruritus Verified 09/18/25 19:51 [From Augmentin] adhesive Allergy Unknown skin Verified 06/16/25 13:16 irritation cephalexin Allergy Unknown DIFFUSE Verified 06/16/25 13:16 MACULAR PAPULAR RASH erythromycin base Allergy Unknown HIVES Verified 06/16/25 13:16 latex Allergy Unknown Rash Verified 06/16/25 13:16 Sulfa (Sulfonamide Allergy Unknown HIVES Verified 06/16/25 13:16 Antibiotics) olive extract Allergy Verified 09/19/25 10:27 Home Medications Medication Instructions Recorded Confirmed Type simvastatin 20 mg tablet (Zocor) 20 mg PO QPM 11/01/19 09/17/25 History betamethasone, augmented 0.05 % 1 applic topical BID PRN Skin 04/18/21 09/17/25 History topical cream Irritation cholecalciferol (vitamin D3) 50 50 mcg PO QAM 04/18/21 09/17/25 History mcg (2,000 unit) capsule fluticasone propionate 50 2 spray intranasal BID 04/18/21 09/17/25 History mcg/actuation nasal spray,suspension hydrocortisone 2.5 % topical cream 1 applic topical UD PRN Skin 04/18/21 09/17/25 History Irritation losartan 100 mg tablet 100 mg PO QAM 05/18/21 09/17/25 History meclizine 25 mg tablet 25 mg PO UD PRN Vertigo 05/18/21 09/17/25 History ondansetron 4 mg disintegrating 4 mg PO Q6H PRN Nausea w/ vertigo 05/18/21 09/17/25 History tablet ipratropium bromide 21 mcg (0.03 2 spray intranasal BID Nasal 07/03/21 09/17/25 History %) nasal spray Congestion peg 400-propylene glycol 0.4 %-0.3 1 drp ophthalmic (eye) QAM Dry Eyes 07/03/21 09/17/25 History % eye gel drops (Systane Gel) tamoxifen 20 mg tablet 20 mg PO QAM 12/12/21 09/17/25 History amlodipine 5 mg tablet 5 mg PO QAM 12/21/23 09/17/25 History cetirizine 10 mg tablet (Zyrtec) 10 mg PO QAM 12/21/23 09/17/25 History lnhwimyfryp-gldmnikbs-bsz C-Mn 2 cap PO DAILY 12/21/23 09/17/25 History capsule (Glucosamine-Chondroitin Complex capsule) pyridoxine (vitamin B6) 100 mg 100 mg PO DAILY 12/21/23 09/17/25 History tablet (Vitamin B-6) venlafaxine 37.5 mg 37.5 mg PO HS 04/13/25 09/17/25 History capsule,extended release 24 hr (Effexor XR) tramadol 50 mg tablet 50 - 100 mg (1 - 2 x 50 mg) PO Q6 05/10/25 09/17/25 Rx PRN pain #40 tabs ibuprofen 200 mg capsule 400 mg PO Q6H PRN Pain 06/16/25 09/17/25 History acetaminophen 650 mg 650 mg PO Q8H PRN Pain 09/17/25 09/17/25 History tablet,extended release aspirin 81 mg tablet 81 mg PO DAILY 09/17/25 09/17/25 History levothyroxine 50 mcg tablet 50 mcg PO DAILY 09/17/25 09/17/25 History Past Med/Surg History Problem List (Updated 09/20/25 @ 15:24 by Keshawn Kohler PA-C) Gout of right ankle S/P TAVR (transcatheter aortic valve replacement) PVC (premature ventricular contraction) Sinus tachycardia Chest pain (Acute) Leukocytosis Aftercare following right hip joint replacement surgery Postoperative anemia due to acute blood loss Status post right hip replacement Postoperative hypotension Arthritis of right hip Painful total knee replacement, right Medical History Lymphadenopathy, axillary Trochanteric bursitis, right hip Malignant neoplasm of upper-outer quadrant of right breast in female, estrogen receptor positive (03/29/21) History of blood transfusion during bilat TKA Vertigo occasional, chronic, denies change or worsening-resolves with PT, denies needing meclizine recently Limb alert care status right arm Cholelithiasis pt denies current or hx gallbladder problem. History of vertigo History of sciatica History of fracture left hand, no sx. History of recurrent UTI (urinary tract infection) would only resolve with IV tx in the past. no recent UTI. History of hyperparathyroidism s/p parathyroid adenoma surgery Aortic stenosis TAVR 03/11. Axillary lymphadenopathy hx, removed lymph nodes 10/2024 "non cancerous" History of COVID-19 (05/2024) no hosp; resolved Neuropathy bilat feet; severe, right leg DDD (degenerative disc disease) Overactive bladder Hypothyroidism Breast cancer, right Dx 03/2021 - s/p right breast lumpectomy with sentinel LN biopsy hx 20 sessions radiation-right arm restriction Borderline glaucoma Prediabetes Hypertensive left ventricular hypertrophy, without heart failure Allergic rhinitis Obesity Hyperlipidemia CKD (chronic kidney disease), stage III Hypertension controlled, stable per pt Surgical History History of cardiac cath approx 12/2024, prior to TAVR in february 2025. [place]. Attempted to do through right wrist, had to go through groin. History of surgery (10/2024) lymph nodes removed, left. non cancerous per pt. History of aortic valve replacement (03/01/25) [place] - "TAVR" S/P lumpectomy, right breast Right Breast Lumpectomy with Localization using Cheryl Operator Assistant I Cementing Marker with Right [place] Lymph Node Biopsy Dr. Helton 05/28/2021 H/O parathyroidectomy (2021) History of hysterectomy History of breast biopsy right History of cataract surgery Bilateral History of reverse total replacement of right shoulder joint (~12/2019) Hx of colonoscopy Hx of abdominal surgery mesenteric cyst removed S/P knee replacement (2010) bilat Family History Sister Breast cancer Mother Breast cancer Pt believes this to be true Pacemaker Grandmother (Maternal) Breast cancer Father , 91yo Pacemaker Osteomyelitis Stroke CHF (congestive heart failure) Sister Diabetes Sister Stroke Hypertension Diabetes Sister Diabetes Daughter No problems noted. 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 Physical Exam Vitals reviewed. General: Pleasant older female reclining in hospital bed in no acute distress. MSK: Examination of the right ankle shows no overlying skin changes. No erythema or ecchymosis. There is minor soft tissue swelling over the lateral malleolus and on the dorsum of the foot. Skin temperature of the right ankle and foot is noticeably warmer than the left. There is tenderness to palpation around the lateral malleolus. Range of motion exam was not conducted secondary to pain. There is some tenderness around the Achilles tendon and medial malleolus. Results & Data Results & Data Laboratory Results Abnormal Lab Results 09/20/25 05:37 WBC 11.86 H RBC 4.28 Hgb 11.7 L Hct 36.6 L MCV 85.5 MCH 27.3 MCHC 32.0 RDW Std Deviation 45.3 RDW Coeff of Danette 14.6 H Plt Count 158 MPV 12.1 ESR 2 Sodium 134 L Potassium 4.1 Chloride 100 Carbon Dioxide 28 Anion Gap 6 BUN 20 Creatinine 0.87 Est Cr Clr Drug Dosing 54.0 eGFR 66.89 BUN/Creatinine Ratio 23.0 H Glucose 100 H Uric Acid 6.3 Calcium 8.8 C-Reactive Protein 1.08 H Diagnostic Findings Ankle X-Ray 09/20/25 09:28 XR ankle RT 2V CLINICAL HISTORY: Ankle pain COMPARISON: 08/23/2024 FINDINGS: There are minimal degenerative changes at the ankle. No fracture or dislocation seen. There is a moderate calcaneal spur. Stable tiny exostosis dorsal distal neck of the talus. There are moderate degenerative changes at the midfoot. IMPRESSION: No fracture seen. ACT 112: Negative or not required by law. Electronically signed by: Mehrdad Shahid M.D. 09/20/2025 9:45 AM PG Care Time/CCT Total # of Minutes Spent Total Time Spent with Patient: Total time spent is greater than 50% in coordination of care (as documented) at patient's floor/unit and/or counseling patient: [place] [address] IN/OBS CONSULT LVL 5,80M Patient Type Established History Problem Focused Exam Problem Focused Medical Decision Making Low Complexity Diagnoses Acute idiopathic gout of right ankle M10.071 Gout etiology: idiopathic Chronicity: acute (1) Gout of right ankle Gout etiology: idiopathic Chronicity: acute Qualified Code(s): M10.071 - Idiopathic gout, right ankle and foot
[2025-09-20] MEDS: LACTATED RINGER'S 1,000 ML IV ONE (17:22)
[2025-09-20] MEDS: COLCHICINE 0.6 MG TAB PO ONE ×2 (17:22→19:40)
[2025-09-20] MEDS ORDERED: Nursing to Pharmacy Communication SCH (17:45)
[2025-09-20] MEDS ORDERED: COLCHICINE 0.6 MG TAB PO ONE ×3 (18:30→19:30)
[2025-09-20] MEDS: METOPROLOL SUCC 50MG EXT REL TAB PO SCH (20:02)
[2025-09-21 07:20] LABS: Hematocrit (blood only) 34.5 % (37.0-47.0); Hemoglobin 11.2 g/dl (12.0-16.0); Mean Corpuscular Hemoglobin 27.8 pg (25.0-34.0); Mean Corpuscular Volume 85.6 fL (80.0-100.0); Platelet Count 138 K/uL (130-400); RDW Standard Deviation 45.7 fL (36.4-46.3); Red Blood Count 4.03 M/uL (4.20-5.40); White Blood Count 13.57 K/ul (4.8-10.8)
[2025-09-21 07:52] LABS: Anion Gap 5.0 (3-11); Blood Urea Nitrogen 17.0 mg/dl (6-23); Calcium 8.5 mg/dl (8.6-10.3); Carbon Dioxide 28.0 mmol/L (21-32); Chloride 100.0 mmol/L (98-107); Creatinine Clr Calc Pharmacy 57.9 ml/min; Glucose 106.0 mg/dl (70-99(Fasting)); Potassium 4.1 mmol/L (3.5-5.1); Sodium 133.0 mmol/L (136-145)
--- NOTE | 2025-09-21 09:13 | Orthopedic Progress Note ---
Date of Service September 21, 2025 Assessment & Plan (1) Gout of right ankle: * Continue Current Treatment * Recommend continued medical management of presumed gout right ankle * Seems to be improving with colchicine alone, could consider steroid taper if pain persist/increases * Low concern for infection, aspiration not indicated at this time * Weight bearing status: Activity as tolerated * Daily treatment: Physical Therapy/ Occupational Therapy per protocol * Pain control * DVT prophylaxis per primary team * Disposition: TBD * F/u Ortho as needed * Remainder care per primary team * Will follow peripherally from orthopedic standpoint. Please reach out with further concerns regarding right ankle pain Subjective . Active Problems: Right ankle pain, presumed gout 80y/o female with acute onset right ankle pain, presumed gout. Doing well overall, pain improved overnight with colchicine. Has not really been out of bed or ambulated yet. Denies fever/chills, chest pain/SOB, nausea/vomiting. Otherwise no complaints. Review of Systems All systems reviewed & are unremarkable except as noted in HPI & below. Physical Exam . * General: Alert and oriented, no acute distress * Constitutional: well-developed, well-nourished. * Respiratory: Normal respiratory effort, no distress * Gastrointestinal: No tenderness to palpation, no rigidity or guarding. * Skin: No rash or lesion. * Neurologic: Grossly normal * Musculoskeletal: Right ankle region with trace edema. Otherwise no overlying skin changes, erythema, open wounds. Mild TTP diffusely across anterior and medial ankle joint. Otherwise no tenderness of the lower leg, dorsal foot, or remainder of right lower extremity. AROM ankle dorsi/plantarflexion intact without pain. Sensation intact plantar/dorsal foot. Brisk capillary refill. Results & Data Results & Data Laboratory Results . Diagnostic Findings . PG Care Time/CCT Total # of Minutes Spent Total Time Spent with Patient: Total time spent is greater than 50% in coordination of care (as documented) at patient's floor/unit and/or counseling patient: Coding Level of Care Code 82242 SUB INP/OBS CARE 12/11MIN Diagnoses Acute idiopathic gout of right ankle M10.071 Gout etiology: idiopathic Chronicity: acute (1) Gout of right ankle Gout etiology: idiopathic Chronicity: acute Qualified Code(s): M10.071 - Idiopathic gout, right ankle and foot
--- NOTE | 2025-09-21 13:11 | Hospitalist Progress Note ---
Date of Service September 21, 2025 Assessment & Plan (1) Chest pain: (2) Aortic stenosis: Plan 80F with PMH severe s/p TAVR 03/01/25, HTN, HLD, hypothyroidism, chronic vertigo who presents with chest pain. Chest pain--resolved PVCs/NSVT H/O TAVR --CTA:No pulmonary embolus or aortic dissection. Stable chronic interstitial scarring and pulmonary nodules. Recommend follow-up CT sometime June 2026 to confirm nodule stability. --Venous Doppler: No sonographic evidence of acute DVT is detected in the bilateral common femoral, superficial femoral, popliteal, posterior tibial, and peroneal veins at the time of examination. -- Troponin x 2 negative -- Last cardiac cath 12/2024: No significant coronary artery disease per record --ZIO monitor in place --ECHO: EF 60 to 65%. Right ventricle systolic function is normal. Bioprosthetic aortic valve. Aortic stenosis is absent. No significant aortic regurgitation. Mild mitral regurgitation. -Continue aspirin, statin, amlodipine and losartan Metoprolol succinate dose Increased to 50 mg daily Urinary tract infection--POA Drug reaction to penicillin Patient allergic to cephalosporin, Bactrim --Urine culture growing E. coli Completed 3-day course of IV ertapenem today Right ankle pain Possibly gout/pseudogout Patient reported acute onset of pain in her right ankle X-rayno acute finding ESR 2, CRP 1.0, uric acid 6.3 Evaluated by orthopedic; low concern of infection. Started on colchicine; added methylprednisolone. Will monitor progress. Patient reported improvement in symptoms. PT OT Pulmonary nodules--chronic per patient Inguinal lymphadenopathy Incidental findings on CT scan Follow-up as outpatient Severe aortic stenosis s/p TAVR -Currently followed by [facility] and is in cardiac rehab Continue home medications HTN Continue amlodipine, losartan, metoprolol Monitor blood pressure Hypothyroidism TSH 0.03, normal free T4 TSH better when compared to prior study Continue levothyroxine Needs repeat thyroid function test as outpatient HLD continue statin DVT Px: Heparin SQ CODE STATUS Full code Disposition Possible discharge home in 1 or 2 days. Time spent evaluating patient, direct bedside care, chart review, placing orders, interpretation of diagnostic studies, discussion with consultants, patient, and family members, as well as other required patient management activities is 50 minutes Please note the above document was generated using voice recognition software. It may contain grammatical, syntax or spelling errors. Any formal questions or concerns about the content, text or information contained within the body of this dictation should be directly addressed to the provider for clarification Admission and Anticipated Discharge Date Admission Date: September 18, 2025 Subjective Patient seen and examined at bedside. She is lying in the bed comfortably; reports pain in her right ankle has improved, but unable to still up on weight Review of Systems Review of Systems: All systems reviewed & are unremarkable except as noted in Subjective Physical Exam Physical Exam: Physical Exam: Vitals signs as noted above General Appearance:Moderately built and nourished, no apparent distress Respiratory/Chest: Normal breath sounds, CTA, No accessory muscle use Cardiovascular: S1, S2, faint murmur,+ ZIO monitor Abdomen/GI:Soft, Non tender, Bowel sounds present Extremities/Musculoskeletal:normal inspection, trace pedal edema, right ankle tender Neurologic/Psych:AAOX3, grossly no focal neurological deficits Skin: normal color, warm Results & Data Results & Data Vital Signs (Past 12 Hours) Vital Signs Temp Pulse Pulse Resp BP Pulse Ox O2 Del Method 09/21/25 11:15 Room Air 09/21/25 10:36 37.2 C 86 16 102/64 93 Room Air 09/21/25 07:56 73 09/21/25 07:50 36.8 C 79 18 132/76 96 Room Air 09/21/25 02:49 37.1 C 89 16 137/78 92 Room Air (1) Chest pain Chest pain type: unspecified Qualified Code(s): R07.9 - Chest pain, unspecified
[2025-09-21] MEDS: COLCHICINE 0.6 MG TAB PO SCH (17:39)
[2025-09-21] MEDS: CIPROFLOXACIN 250 MG TAB PO SCH (20:29)
[2025-09-21] MEDS: NITROFURANTOIN MONOHYDRATE 100 MG CAP PO STA (20:46)
[2025-09-21 23:32] VITALS: RESP 18
[2025-09-22 07:16] VITALS: BP 138/72; TEMP 98.1; O2SAT 98
[2025-09-22] MEDS: predniSONE 20 MG TAB PO SCH (08:06)
[2025-09-22] MEDS: NITROFURANTOIN MONOHYDRATE 100 MG CAP PO SCH (08:11)
[2025-09-22 09:17] VITALS: PULSE 88
--- NOTE | 2025-09-22 12:01 | Discharge Summary ---
Date of Service September 22, 2025 Admission HPI Per Admitting Provider Ms. Zimmerman is a very pleasant 80F with PMH severe s/p TAVR 03/01/25, HTN, HLD, hypothyroidism, chronic vertigo who presents with chest pain. Patient awoke this AM at 0930 with dizziness and then by 10 AM developed substernal chest pressure with pain radiating to jaw and L arm. She checked her BP and it was SBP 190s. Her immediately brought her to the ED. Chest pain was relieved by nitro in ED. Denies similar symptoms in the past. She is currently symptom free. She took 325 ASA at home prior to going to the ED. Patient denies F/C, CP, palpitations, SOB, dyspnea, abd pain, N/V/D In the ED vitals are stable. EKG NSR without ST segment changes . HS trop x 1 normal at 5.9. CXR clear Admission Exam Per Admitting Provider Vitals and labs reviewed General: Well appearing, NAD HEENT: EOMI, PERRLA Neck: Supple Cardiac: RRR no rubs gallops or murmurs Lungs: CTA no rhonchi wheezing or rales Abd: S NT ND BS positive : Deffered MSK: Full ROM. No obvious deformities Ext: No Edema cyanosis Skin: Warm, Dry Neuro: AOx3 No focal Principal Diagnosis Chest pain--resolved PVCs/NSVT H/O TAVR Right ankle pain Possibly gout/pseudogout Discharge Exam Physical Exam: Vitals signs as noted above General Appearance:Moderately built and nourished, no apparent distress Respiratory/Chest: Normal breath sounds, CTA, No accessory muscle use Cardiovascular: S1, S2, faint murmur,+ ZIO monitor Abdomen/GI:Soft, Non tender, Bowel sounds present Extremities/Musculoskeletal:normal inspection, trace pedal edema, right ankle tender Neurologic/Psych:AAOX3, grossly no focal neurological deficits Skin: normal color, warm Discharge Data Allergies Allergy/AdvReac Type Severity Reaction Status Date / Time olive oil Allergy Severe EDEMA Verified 06/16/25 13:16 FACE/LIPS/TONGUE amoxicillin [From Augmentin] Allergy Mild pruritus Verified 09/18/25 19:51 clavulanic acid Allergy Mild pruritus Verified 09/18/25 19:51 [From Augmentin] adhesive Allergy Unknown skin Verified 06/16/25 13:16 irritation cephalexin Allergy Unknown DIFFUSE Verified 06/16/25 13:16 MACULAR PAPULAR RASH erythromycin base Allergy Unknown HIVES Verified 06/16/25 13:16 latex Allergy Unknown Rash Verified 06/16/25 13:16 Sulfa (Sulfonamide Allergy Unknown HIVES Verified 06/16/25 13:16 Antibiotics) olive extract Allergy Verified 09/19/25 10:27 Consultations 09/17/25 13:00 ED Decision to Admit Stat 09/17/25 17:18 Consult Cardiology Routine 09/20/25 09:29 Consult Orthopedic Surgery Routine Ordered Studies 09/17/25 14:16 CT angio chest PE protocol Stat 09/18/25 US venous doppler LE BI Routine Hospital Course (1) Chest pain: (2) Aortic stenosis: Plan 80F with PMH severe s/p TAVR 03/01/25, HTN, HLD, hypothyroidism, chronic vertigo who presents with chest pain. Chest pain--resolved PVCs/NSVT H/O TAVR --CTA:No pulmonary embolus or aortic dissection. Stable chronic interstitial scarring and pulmonary nodules. Recommend follow-up CT sometime June 2026 to confirm nodule stability. --Venous Doppler: No sonographic evidence of acute DVT is detected in the bilateral common femoral, superficial femoral, popliteal, posterior tibial, and peroneal veins at the time of examination. -- Troponin x 2 negative -- Last cardiac cath 12/2024: No significant coronary artery disease per record --ZIO monitor in place --ECHO: EF 60 to 65%. Right ventricle systolic function is normal. Bioprosthetic aortic valve. Aortic stenosis is absent. No significant aortic regurgitation. Mild mitral regurgitation. -Continue aspirin, statin, amlodipine and losartan Metoprolol succinate dose Increased to 50 mg daily as per cardiology recommendation from 12.5 daily Right ankle pain Possibly gout/pseudogout Patient reported acute onset of pain in her right ankle X-rayno acute finding ESR 2, CRP 1.0, uric acid 6.3 Evaluated by orthopedic; low concern of infection. Started on colchicine and steroids. Patient had remarkable improvement with colchicine and steroid. She was discharged on few days of colchicine and tapering dose of steroids Please note the above document was generated using voice recognition software. It may contain grammatical, syntax or spelling errors. Any formal questions or concerns about the content, text or information contained within the body of this dictation should be directly addressed to the provider for clarification Total Time Total Time Spent Total Time Spent (In Minutes): 45 Total Time Includes: Examination of the Patient, Discharge Planning, Medication Reconciliation, Communication With Other Providers and Other Discharge Plan Discharge Items Patient Disposition: Home - Self-Care Reason For Visit: CHEST PAIN Discharge Diagnosis: Chest pain Urinary tract infection Pulmonary nodules Lymphadenopathy Condition on Discharge: Fair Activity: Per Instructions section Exercise/Sports: Gradually increase as tolerated Non-emergency contact: Primary Care Provider and Independent Agent [employer] Call non-emergency contact if: you have any medication questions, your symptoms worsen, your pain is concerning for you and you have a fever Follow-up/Referrals: Dov Kohler DO [Primary Care Provider] - (Date & Time 09/26/2025 11:00 AM Provider: Dov Kohler DO [facility] ) Diet: Heart Healthy Addtl Attending Provider Instructions: You were evaluated during the hospitalization by cardiology for the chest pain. They recommend to increase the metoprolol to 50 mg once a day. A new prescription has been sent to your pharmacy For the ankle pain, you are prescribed following medication 1) Take colchicine 0.6 mg once a day for 4 days 2) Take prednisone 20 mg as follows; Take 2 tablets once a day for 3 days, then take 1 tablet for 3 days. Follow-up with your primary care doctor as scheduled. The CT chest done during the hospitalization showed small pulmonary nodules of 2 to 4 mm; please obtain CT chest in about 6 months time to ensure that these nodules are stable. Pending Studies at Discharge: No Stand-Alone Forms: My [facility] [employer], Smoking Cessation Medications and DC Order Prescriptions: New metoprolol succinate 50 mg Tablet Extended Release 24 Hr 50 mg PO QPM Qty: 30 0RF prednisone 20 mg Tablet See Taper PO DAILY Qty: 9 0RF Taper: Taper, Blank 40 mg DAILY for 3 Days 20 mg DAILY for 3 Days colchicine [Colcrys] 0.6 mg Tablet 0.6 mg PO DAILY 4 Days Qty: 4 0RF Continued Systane Gel 0.4-0.3 % drops,gel 1 drp ophthalmic (eye) QAM tamoxifen 20 mg tablet 20 mg PO QAM ibuprofen 200 mg capsule 400 mg PO Q6H PRN (Reason: Pain) tramadol 50 mg tablet 50 - 100 mg PO Q6 PRN (Reason: pain) Qty: 40 0RF Patient Comments: post op Rx Instructions: Take as needed for pain simvastatin [Zocor] 20 mg tablet 20 mg PO QPM ipratropium bromide 21 mcg (0.03 %) spray,non-aerosol 2 spray INTNAS BID fluticasone propionate 50 mcg/actuation spray,suspension 2 spray intranasal BID Patient Comments: every morning and sometimes at night Rx Instructions: administer into each nostril cholecalciferol (vitamin D3) 50 mcg (2,000 unit) capsule 50 mcg PO QAM betamethasone, augmented 0.05 % cream 1 applic topical BID PRN (Reason: Skin Irritation) hydrocortisone 2.5 % cream 1 applic topical UD PRN (Reason: Skin Irritation) losartan 100 mg Tablet 100 mg PO QAM meclizine 25 mg Tablet 25 mg PO UD PRN (Reason: Vertigo) ondansetron 4 mg Tablet,Disintegrating 4 mg PO Q6H PRN (Reason: Nausea w/ vertigo) cetirizine [Zyrtec] 10 mg Tablet 10 mg PO QAM Glucosamine-Chondroitin Complx Capsule 2 cap PO DAILY amlodipine 5 mg tablet 5 mg PO QAM pyridoxine (vitamin B6) [Vitamin B-6] 100 mg Tablet 100 mg PO DAILY venlafaxine [Effexor XR] 37.5 mg Capsule,Extended Release 24hr 37.5 mg PO HS Patient Comments: prescribed for hot flashes acetaminophen 650 mg Tablet Extended Release 650 mg PO Q8H PRN (Reason: Pain) levothyroxine 50 mcg tablet 50 mcg PO DAILY aspirin 81 mg Tablet 81 mg PO DAILY Discharge Orders: Discharge Order (Routine); Ordered 09/22/25 Ordered By: Stevo Thompson Admission Data Admit Date/Time: 09/18/25 16:10 Attending Provider: Stevo Thompson Admit Provider: Marcos Fine Primary Care Provider: Dov Kohler. Other Providers: Dejuan Mason; Brooklyn Yadav; Curtis Daniel; Mickey Alfonso; Neri Robins; Jaison Romo; Galo Garcia; Negrita Spicer; Kenia Gan; Candice Manriquez; Soraida Pineda; Brooklyn Bush; Estevan Boone; Genaro Alvarado; Colette Borjas; China Garza; Saba Zimmerman; Adeline Pascual; aSe Taylor; Keira Alfonso; Deb Love; Arjun Mancilla; Kolby Martinez; Curtis Stack Other Interventions: Discharge Summary Assessment (RN) Last Done: 09/22/25 09:16
== END 2025-09-22 11:10 | disposition home or self-care (01) | DRG 313 ==
LOC: ED 10:56 → 2N 10:56 → SUATTDRO 13:50 → 2N 17:30 → SUATTDRO 09-18 16:10 → 2W 09-18 22:08